=== PATIENT | male | born 1945 | race Caucasian/White ===

== ENCOUNTER 2018-01-05 16:30 | Emergency (ER) | payer OTHER, MEDICARE ==
--- NOTE | 2018-01-05 17:05 | RADIOLOGY REPORT (SQ) ---
EXAM DESCRIPTION: ANKLE LEFT AP/LATERAL COMPLETED DATE/TIME: 01/05/2018 4:56 pm REASON FOR STUDY: bed mp +deformity COMPARISON: None. NUMBER OF VIEWS: Two views. TECHNIQUE: AP and lateral radiographic images acquired of the left ankle. LIMITATIONS: Nonstandard radiographic positioning FINDINGS: MINERALIZATION: Normal. BONES: Acute trimalleolar fracture is present with lateral subluxation of the talus, medial malleolus and distal fibular fragment with respect to the distal tibial plafond. JOINTS: Lateral subluxation of the talus with respect to the tibia SOFT TISSUES: Diffuse soft tissue swelling. No radiopaque foreign body OTHER: No other significant finding. IMPRESSION: Acute trimalleolar fracture with significant lateral subluxation of the talus and distal tibia/fibular fractures fragments with respect to the tibial plafond. TECHNICAL DOCUMENTATION: JOB ID: [id number] [employer]- All Rights Reserved Reading location - IP/workstation name: [email or web address]
--- NOTE | 2018-01-05 18:38 | ER Document Report ---
ED Extremity Problem, Lower - General Chief Complaint: Foot Injury Stated Complaint: FOOT PAIN Time Seen by Provider: 01/05/18 18:31 Notes: Walking up steps and slipped and twisted his left ankle causing it to dislocate and remain in a deformed position. He denies any other injuries. Has a history of diabetic neuropathy and has no feeling from lower leg down and does not feel any pain in the obviously deformed and dislocated left ankle. Denies injuries to his head, neck, chest, or abdomen. Has not been sick recently. Not short of breath. TRAVEL OUTSIDE OF THE [place] IN LAST 30 DAYS: No - Related Data Allergies/Adverse Reactions: paroxetine HCl [From Paxil] Allergy (Unknown, Verified 11/27/17 09:24) Hives mushroom Allergy (Verified 11/27/17 09:24) naproxen [From Naprosyn] Allergy (Verified 11/27/17 09:24) Hives Past Medical History - Social History Smoking Status: Never Smoker Chew tobacco use (# tins/day): No Frequency of alcohol use: None Family History: Reviewed & Not Pertinent Patient has suicidal ideation: No Patient has homicidal ideation: No - Past Medical History Cardiac Medical History: Reports: Hx Congestive Heart Failure, Hx Coronary Artery Disease, 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 4 , Hx Hypercholesterolemia, Hx Hypertension - ON MEDS Pulmonary Medical History: Reports: Hx Bronchitis - hx of , Hx Pneumonia - 1994 Denies: Hx Asthma, Hx COPD Neurological Medical History: Reports: Hx Seizures - ABSENCE FOR 15 YRS- LAST SZ 15YRS AGO Endocrine Medical History: Reports: Hx Diabetes Mellitus Type 1, Hx Diabetes Mellitus Type 2 GI Medical History: Reports: Hx Gastroesophageal Reflux Disease, Hx Hiatal Hernia Musculoskeltal Medical History: Reports Hx Arthritis Past Surgical History: Reports: Hx Cardiac Surgery - quadruple bypass, Hx Cholecystectomy, Hx Coronary Artery Bypass Graft - x 4, Hx Orthopedic Surgery - carpal tunnel, Hx Vascular Surgery - Immunizations Hx Diphtheria, Pertussis, Tetanus Vaccination: Yes Hx Pneumococcal Vaccination: 08/10/07 Review of Systems - Review of Systems Notes: REVIEW OF SYSTEMS: CONSTITUTIONAL : Denies fever. EENT: Denies eye, ear, nose or mouth or throat pain or other symptoms. CARDIOVASCULAR: Denies chest pain. RESPIRATORY: Denies cough, chest congestion, or shortness of breath. GASTROINTESTINAL: Denies abdominal pain or nausea, vomiting, or diarrhea. GENITOURINARY: Denies difficulty or painful urinating, urinary frequency, blood in urine. MUSCULOSKELETAL: Denies back or neck pain. Deformity of the left ankle SKIN: Denies rash or skin lesions. NEUROLOGICAL: Denies LOC or altered mental status. Denies headache. Denies sensory loss or motor deficits. ALL OTHER SYSTEMS REVIEWED AND NEGATIVE. Physical Exam - Vital signs Vitals: Temp Pulse Resp BP Pulse Ox 98.9 F 71 20 145/63 H 97 01/05/18 17:20 01/05/18 17:20 01/05/18 17:20 01/05/18 17:20 01/05/18 17:20 Interpretation: Normal - Notes Notes: PHYSICAL EXAMINATION: GENERAL: Well-appearing, in no acute distress. Obvious gross deformity of the patient's left ankle HEAD: Atraumatic, normocephalic. NECK: Normal range of motion, supple. LUNGS: Breath sounds clear and equal bilaterally. HEART: Regular rate and rhythm without murmurs. ABDOMEN: Soft, nontender. No guarding or rebound. No masses. BACK: No tenderness throughout entire back. EXTREMITIES: Left lower leg and ankle are deformed with dislocation appearance. Left ankle with only minimal discomfort to palpate or move because of the patient's neuropathy. Good dorsalis pedis pulse of that foot and good capillary refill of the toes of that foot. Otherwise, all other joints are normal. NEUROLOGICAL: Normal speech, normal gait. Normal sensory, motor, and reflex exams. Awake, alert, and oriented x3. Cranial nerves normal. PSYCH: Normal mood, normal affect. SKIN: Warm, dry, no rashes. Course - Re-evaluation Re-evalutation: 01/05/18 18:32 Discussed the patient with Dr. Chu, who asked that the patient's dislocation fracture be reduced and splinted and referred to the office tomorrow and they will set up surgery later in the week. Patient's ankle was reduced. Good post reduction circulation in the foot and toes. No anesthesia or analgesia or sedation was utilized because the patient has no feeling in the ankle and distal left lower leg due to his neuropathy. - Vital Signs Vital signs: Temp Pulse Resp BP Pulse Ox 98.9 F 71 20 145/63 H 97 01/05/18 17:20 01/05/18 17:20 01/05/18 17:20 01/05/18 17:20 01/05/18 17:20 - Diagnostic Test Radiology results interpreted by me: 01/05/18 19:37 X-ray reveals a trimalleolar fracture of the left ankle with dislocation. Procedures - Immobilization Left Ankle Pre-Proc Neuro Vasc Exam: Abnormal - Circulation good, sensation absent due to neuropathy. Immobilizer type: Ankle stirrup, Posterior ankle Performed by: Provider assisted, PCT Post-Proc Neuro Vasc Exam: Unchanged from pre-exam Alignment checked and good: Yes - Joint Reduction/Fracture Care Left Ankle Consent obtained: Yes Conscious sedation: No - Patient has neuropathy and has no feeling in his lower extremities Pre-procedure NV exam: Yes - Neuropathy with no feeling in both feet. Fracture: Closed Manipulation comment: Firm traction applied with countertraction being offered by. Post-procedure NV exam: Yes - Same as pre-procedure. Post-reduction x-ray: Joint reduced Reduction attempts: 1 Complications: No Notes: 01/05/18 19:39 Traction applied and accentuation of the deformity was performed. There was a gradual slipping of the dislocated parts back into approximately there original positions. Procedure took less than 5 minutes. No complications. Good dorsalis pedis pulse after the procedure and good capillary refill in the toes of the left foot. Splint applied jointly by PCT and by me. Is a posterior splint with a stirrup as well. Discharge - Discharge Clinical Impression: Trimalleolar fracture of left ankle, Dislocation of left ankle joint Condition: Stable Disposition: HOME, SELF-CARE Additional Instructions: Fractured Ankle (Trimalleolar) You have a fracture of three bones of the lower leg at the ankle. If there is dispacement of the bones from their proper alignment, manipulation of the ankle and foot may be necessary to re-align the bones properly. This fracture wll require a cast for healing and some of the more serious fractures of this type will require surgery. If surgery is not required, the bones requires only protection and sufficient time for healing. The initial treatment is immobilization, elevation, and ice packs. Depending on the type of fracture, immobilization may consist of a splint or cast. The length of time required for healing depends on the type of fracture. You will be referred to an orthopedic surgeon who will re-assess you periodically to make certain that the bone heals without complications. It's important that you follow the instructions given you. Dislocation You have suffered a dislocation of your joint. It has been reduced (put back in place). It will take time for the tissues around the joint to heal. The joint will be immobilized at first. If possible, elevate the injured area and apply ice packs. After healing is underway, the joint will require egryb-lw-[id number] and strengthening exercises. The follow-up care is important in avoiding residual problems following your dislocation. If you note any numbness, muscle weakness, or severe swelling in the affected area, call the doctor or return for re-evaluation at once. ANKLE STIRRUP SPLINT: You are to use an ankle brace called a stirrup splint. This type of brace allows you to place greater stresses on the ankle without risk of re-injury, and is often used for more severe ankle injuries such as avulsion fractures and ligament ruptures. The splint can be worn over a sock or tape. For proper support, wear the splint with a shoe over it. It's important that the splint fit properly. Adjust the heel tension, if needed. If your splint has air bladders, peel back the bottom of each air bladder, then move the Velcro attachment of the heel strap up or down. Air bladder pressure can be adjusted by pulling up the valve at the top, threading the air tube down into the main bladder, then blowing air into the bladder or squeezing it out. The two sides of the stirrup can be moved forward or back on your ankle by changing the attachment of the main straps. If you are unable to use the ankle comfortably in the splint, return for re -evaluation. SOFT ANKLE SPLINT: You are to wear a cloth ankle splint. This type of splint uses the strength of the fabric to keep the ankle from twisting. The splint can be worn over a sock, if it's more comfortable. If the splint has an adjustable strap, the strap should come up over the OUTER side of the ankle. This strap should be pulled tight enough so you can't turn your ankle in towards you -- it should hold your foot so the sole can't be turned towards at the other foot. You should start out slow. Like a new shoe, the splint may take some "breaking in." You will get blisters if you are too active at first. No ankle brace provides absolute protection. You must avoid activities which put your ankle at risk. Work on strengthening your ankle -- strength is your best protection against re-injury. Call the doctor if you can't do your normal activities in the ankle brace. Splitn Precautions A splint has been placed. This will protect the area while healing begins. Your problem does NOT normally require a cast. It MUST, however, be held still! Keep the splint on ALL THE TIME until instructed to remove it by the doctor. As you begin to use the area, be careful. You shouldn't do anything which causes discomfort -- you may disturb the injury even with the splint in place. After the initial period of rest and elevation, if splint does not prevent pain when you move, come back. You may require placement of a different splint , or a cast. If there is unexpected severe pain, or numbness, discoloration, or swelling beyond the splint, you should return at once. If you feel that the splint has broken or become loose, come back. ICE & ELEVATION: Apply ice packs frequently against the painful area. Many different schedules are recommended, such as "20 minutes on, 20 minutes off" or "one hour ice, two hours rest." If you need to work, you may need to go longer between ice treatments. You should plan to have the area ice packed AT LEAST one- fourth of the time. The ice should be applied over the wrap, tape, or splint, or over a layer of cloth -- not directly against the skin. Some ice bags have a built-in cloth and can be put directly on the skin. Your injured part should be elevated as much as possible over the next 48 hours. Try to keep the injury above the level of the heart. Avoid use of the injured area. Elevation and rest will decrease the swelling. ORAL NARCOTIC MEDICATION: You have been given a prescription for pain control. This medication is a narcotic. It's best taken with food, as nausea can result if taken on an empty stomach. Don't operate machinery or drive within six hours of taking this medication. Do not combine this medicine with alcohol, or with any medication which can cause sedation (such as cold tablets or sleeping pills) unless you get permission from the physician. Narcotics tend to cause constipation. If possible, drink plenty of fluids and eat a diet high in fiber and fruits. FOLLOW-UP CARE: If you have been referred to a physician for follow-up care, call the physician s office for an appointment as you were instructed or within the next two days. If you experience worsening or a significant change in your symptoms, notify the physician immediately or return to the Emergency Department at any time for re-evaluation. Call the orthopedic office that I have provided for you in the discharge instructions. I have spoken with Dr. Chu, who indicated that someone would see you in the office tomorrow and schedule your surgery for the fractured ankle later this week. Prescriptions: Oxycodone HCl/Acetaminophen [Percocet 5-325 mg Tablet] 1 - 2 tab PO Q4H PRN #10 tablet PRN Reason: Wheelchair 1 each [facility] DAILY 60 Days each Referrals: RAJEEV SANCHEZ MD [ACTIVE STAFF] - Follow up tomorrow
[2018-01-05 19:31] VITALS: BP 148/79
--- NOTE | 2018-01-05 19:35 | RADIOLOGY REPORT (SQ) ---
EXAM DESCRIPTION: ANKLE LEFT AP/LATERAL COMPLETED DATE/TIME: 01/05/2018 7:05 pm REASON FOR STUDY: Post reduction x-ray COMPARISON: 01/05/2018 NUMBER OF VIEWS: Three views. TECHNIQUE: AP, lateral, and oblique radiographic images acquired of the left ankle. LIMITATIONS: None. FINDINGS: MINERALIZATION: Normal. BONES: The tibiotalar dislocation has been reduced. There is still medial displacement of the tibia in relation to the talus. JOINTS: No effusions. SOFT TISSUES: No soft tissue swelling. No foreign body. OTHER: Ankle is in splint. IMPRESSION: Improved alignment of the tibiotalar joint as described. TECHNICAL DOCUMENTATION: JOB ID: [id number] [employer]- All Rights Reserved Reading location - IP/workstation name: [email or web address]
== END 2018-01-05 19:31 | disposition home or self-care (01) ==
LOC: ER 16:30
DX: S82.852A Displaced trimalleolar fracture of left lower leg, initial encounter for closed fracture (principal); W10.9XXA Fall (on) (from) unspecified stairs and steps, initial encounter; E11.40 Type 2 diabetes mellitus with diabetic neuropathy, unspecified; Z88.8 Allergy status to other drugs, medicaments and biological substances; Z91.018 Allergy to other foods; I25.10 Atherosclerotic heart disease of native coronary artery without angina pectoris; I10 Essential (primary) hypertension
CPT/HCPCS: 99283

== ENCOUNTER 2018-01-06 06:30 | Inpatient (IN) | payer OTHER, MEDICARE ==
--- NOTE | 2018-01-06 07:25 | ER Document Report ---
ED GI/ - General Chief Complaint: Nausea/Vomiting Stated Complaint: NAUSEA/VOMITING Time Seen by Provider: 01/06/18 07:25 Mode of Arrival: Medic Information source: Patient Notes: 72-year-old male that had a fracture dislocation of left ankle reduced in the emergency room yesterday spent most of the night trying to get in and out of the bathroom with a walker that does not fit through the door. He has had nausea and vomiting. He ended up sliding from the chair to the floor and they had to call EMS because they could not get him up off the floor. He had shortness of breath when they ( and neighbor) were trying to get him up. Denies chest pain, shortness of breath or abdominal pain at this time. He is complaining of left ankle pain. TRAVEL OUTSIDE OF THE [place] IN LAST 30 DAYS: No - Related Data Allergies/Adverse Reactions: paroxetine HCl [From Paxil] Allergy (Unknown, Verified 11/27/17 09:24) Hives mushroom Allergy (Verified 11/27/17 09:24) naproxen [From Naprosyn] Allergy (Verified 11/27/17 09:24) Hives Past Medical History - General Information source: Patient - Social History Smoking Status: Former Smoker Chew tobacco use (# tins/day): No Frequency of alcohol use: None Drug Abuse: None Lives with: Spouse/Significant other - Family History: Reviewed & Not Pertinent Patient has suicidal ideation: No Patient has homicidal ideation: No - Past Medical History Cardiac Medical History: Reports: Hx Congestive Heart Failure, Hx Coronary Artery Disease, 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 4 , Hx Hypercholesterolemia, Hx Hypertension - ON MEDS Pulmonary Medical History: Reports: Hx Bronchitis - hx of , Hx Pneumonia - 1994 Neurological Medical History: Reports: Hx Seizures - ABSENCE FOR 15 YRS- LAST SZ 15YRS AGO Endocrine Medical History: Reports: Hx Diabetes Mellitus Type 1, Hx Diabetes Mellitus Type 2 Renal/ Medical History: Denies: Hx Peritoneal Dialysis GI Medical History: Reports: Hx Gastroesophageal Reflux Disease, Hx Hiatal Hernia Musculoskeltal Medical History: Reports Hx Arthritis Past Surgical History: Reports: Hx Cardiac Surgery - quadruple bypass, Hx Cholecystectomy, Hx Coronary Artery Bypass Graft - x 4, Hx Orthopedic Surgery - carpal tunnel, Hx Vascular Surgery. Denies: Hx Abdominal Surgery, Hx Bowel Surgery, Hx Cardiac Catheterization, Hx Neurologic Surgery, Hx Nose Surgery, Hx Open Heart Surgery, Hx Oral Surgery, Hx Thyroid Surgery, Hx Tonsillectomy - Immunizations Hx Diphtheria, Pertussis, Tetanus Vaccination: Yes Hx Pneumococcal Vaccination: 08/10/07 Review of Systems - Review of Systems Constitutional: No symptoms reported EENT: No symptoms reported Cardiovascular: No symptoms reported Respiratory: No symptoms reported Gastrointestinal: See HPI Genitourinary: No symptoms reported Male Genitourinary: No symptoms reported Musculoskeletal: See HPI Skin: No symptoms reported Hematologic/Lymphatic: No symptoms reported Neurological/Psychological: No symptoms reported Physical Exam - Vital signs Vitals: Temp Pulse Resp BP Pulse Ox 100.2 F 86 18 124/55 L 95 01/06/18 06:39 01/06/18 06:39 01/06/18 06:39 01/06/18 06:39 01/06/18 06:39 Interpretation: Febrile - Low-grade 100.2 - General General appearance: Alert Notes: Looks dry - HEENT Head: Normocephalic, Atraumatic Eyes: Normal Conjunctiva: Normal Pupils: PERRL Neck: Supple. No: Lymphadenopathy - Respiratory Respiratory status: No respiratory distress Chest status: Nontender Breath sounds: Normal Chest palpation: Normal - Cardiovascular Rhythm: Regular Heart sounds: Normal auscultation Murmur: No - Abdominal Inspection: Normal Distension: No distension Bowel sounds: Normal Tenderness: Nontender. No: Tender Organomegaly: No organomegaly - Back Back: Normal, Nontender - Extremities General upper extremity: Normal inspection, Nontender, Normal color, Normal ROM , Normal temperature General lower extremity: Normal inspection, Nontender, Normal color, Normal ROM , Normal temperature, Normal weight bearing. No: Ciro's sign Ankle: Other - splint on left ankle/foot - Neurological Neuro grossly intact: Yes Cognition: Normal Orientation: AAOx4 [place] Coma Scale Eye Opening: Spontaneous [place] Coma Scale Verbal: Oriented [place] Coma Scale Motor: Obeys Commands [place] Coma Scale Total: 15 Speech: Normal Motor strength normal: LUE, RUE, LLE, RLE Sensory: Normal - Psychological Associated symptoms: Normal affect, Normal mood - Skin Skin Temperature: Warm Skin Moisture: Dry Skin Color: Normal Notes: see note above to decribed the bullae Course - Re-evaluation Re-evalutation: 01/06/18 08:40 splint for rewrap of luis wraps, blood on the soft gauze, when removed 3 serosanquinous bullae and 1 ruptured bullae medial left ankle with blood on base. Bacitracin and telfa. 01/06/18 08:[address] wright as said they were trying to make appt with him. 01/06/18 08:44 01/06/18 09:31 Dr. Grossman told me to call nurse practitioner Lori Quezada for the medical admission and I put in the consultation with Dr. wright and spoke with him and he will see the patient in consultation. Since he has the bullae he will not be able to have surgery until the skin heals because that increases the risk of infection. I did Ancef 1 g IV. I spoke with nurse practitioner Damien who will see the patient and admit him to telemetry. 01/06/18 10:15 Patient looks better after 500 of normal saline and he wants to eat breakfast. He has not his insulin today - Vital Signs Vital signs: Temp Pulse Resp BP Pulse Ox 100.2 F 86 22 H 124/55 L 94 01/06/18 06:39 01/06/18 06:39 01/06/18 08:03 01/06/18 06:39 01/06/18 08:03 - Laboratory Result Diagrams: 01/06/18 07:39 01/06/18 07:39 Laboratory results interpreted by me: 01/06/18 01/06/18 01/06/18 07:39 07:39 09:10 WBC 14.5 H RBC 3.94 L Hgb 12.7 L Hct 37.0 L Plt Count 140 L Absolute Neutrophils 10.2 H Absolute Monocytes 1.7 H Glucose 250 H ALT 20 L Creatine Kinase 184 H Urine Glucose (UA) >=500 H Urine Ketones 20 H Urine Ascorbic Acid 20 H Discharge - Discharge Clinical Impression: fall, left ankle fracture, bullae, Immobility, Diabetes, Hyperglycemia, Nausea Vomiting Qualifiers: Vomiting type: unspecified Vomiting Intractability: non-intractable Nausea presence: with nausea Qualified Code(s): R11.2 - Nausea with vomiting, unspecified Condition: Good Disposition: ADMITTED INPATIENT Admitting Provider: Hospitalist Unit Admitted: Telemetry
[2018-01-06] MEDS ORDERED: NORMAL SALINE 1000 ML 500 ML IV ONE (07:40)
[2018-01-06 07:57] LABS: ABSOLUTE EOSINOPHILS # (AUTO) 0.1 10^3/uL (0.0-0.6); ABSOLUTE LYMPHOCYTES (AUTO) 2.5 10^3/uL (0.5-4.7); ABSOLUTE MONOCYTES (AUTO) 1.7 10^3/uL (0.1-1.4); ABSOLUTE NEUT (AUTO) 10.2 10^3/uL (1.7-8.2); BASOPHILS % (AUTO) 0.2 % (0-2); EOSINOPHILS % (AUTO) 0.6 % (0-6); HEMOGLOBIN 12.7 g/dL (13.5-17.0); MEAN CORPUSCULAR HEMOGLOBIN 32.3 pg (27.0-33.4); MEAN CORPUSCULAR HGB CONC 34.3 g/dL (32.0-36.0); MEAN CORPUSCULAR VOLUME 94 fl (80-97); MONOCYTES % (AUTO) 12.1 % (3-13); PLATELET COUNT 140 10^3/uL (150-450); RED BLOOD COUNT 3.94 10^6/uL (4.35-5.55); RED CELL DISTRIBUTION WIDTH 13.4 % (11.5-14.0); SEGMENTED NEUTROPHILS % (AUTO) 70.1 % (42-78); TOTAL CELLS COUNTED % (AUTO) 100 %; WHITE BLOOD COUNT 14.5 10^3/uL (4.0-10.5)
[2018-01-06 08:21] LABS: ALANINE AMINOTRANSFERASE 20 U/L (21-72); ALBUMIN 3.6 g/dL (3.5-5.0); ALKALINE PHOSPHATASE 59 U/L (38-126); ANION GAP 14 (5-19); ASPARTATE AMINO TRANSFERASE 29 U/L (17-59); BILIRUBIN,DIRECT 0.3 mg/dL (0.0-0.4); BILIRUBIN,TOTAL 0.4 mg/dL (0.2-1.3); BLOOD UREA NITROGEN 13 mg/dL (7-20); CALCIUM 8.5 mg/dL (8.4-10.2); CARBON DIOXIDE 26 mmol/L (22-30); CHLORIDE 103 mmol/L (98-107); CREATINE KINASE 184 U/L (55-170); GLUCOSE 250 mg/dL (75-110); LIPASE 73.5 U/L (23-300); POTASSIUM 4.5 mmol/L (3.6-5.0); SODIUM 142.8 mmol/L (137-145); TOTAL PROTEIN 6.5 g/dL (6.3-8.2)
[2018-01-06 08:32] LABS: CREATINE KINASE MB 1.32 ng/mL (<4.55); TROPONIN I 0.015 ng/mL
--- NOTE | 2018-01-06 08:32 | RADIOLOGY REPORT (SQ) ---
EXAM DESCRIPTION: CHEST SINGLE VIEW COMPLETED DATE/TIME: 01/06/2018 8:24 am REASON FOR STUDY: shortness of breath COMPARISON: Chest films 11/27/2017, 11/11/2014 EXAM PARAMETERS: NUMBER OF VIEWS: One view. TECHNIQUE: Single frontal radiographic view of the chest acquired. RADIATION DOSE: NA LIMITATIONS: [employer] portable chest film with EKG leads over the chest FINDINGS: LUNGS AND PLEURA: No opacities, masses or pneumothorax. No pleural effusion. MEDIASTINUM AND HILAR STRUCTURES: No masses. Contour normal. HEART AND VASCULAR STRUCTURES: Heart normal in size. Normal vasculature. BONES: No acute findings. HARDWARE: None in the chest. OTHER: No other significant finding. IMPRESSION: NO ACUTE RADIOGRAPHIC FINDING IN THE CHEST. TECHNICAL DOCUMENTATION: JOB ID: [id number]- All Rights Reserved Reading location - IP/workstation name: [email or web address]
[2018-01-06] MEDS: CEFAZOLIN 1 GM/D5W RTU 1 GM/50 ML RTUPB IV SCH ×3 (09:05→23:42)
[2018-01-06] MEDS ORDERED: HYDROMORPHONE HCL INJ/PF 2 MG/ML AMPULE IV ONE (09:40)
[2018-01-06] MEDS ORDERED: ONDANSETRON HCL INJ/PF 4 MG/2 ML SDV IV ONE (09:41)
[2018-01-06 09:42] LABS: APPEARANCE,URINE SLIGHTLY-CLOUDY; BILIRUBIN,URINE NEGATIVE (NEGATIVE); COLOR,URINE YELLOW; GLUCOSE, URINE >=500 mg/dL (NEGATIVE); KETONES,URINE 20 mg/dL (NEGATIVE); LEUKOCYTE ESTERASE,URINE NEGATIVE (NEGATIVE); NITRITE,URINE NEGATIVE (NEGATIVE); PROTEIN,URINE NEGATIVE (NEGATIVE); URINE SPECIFIC GRAVITY 1.022; UROBILINOGEN,URINE NEGATIVE mg/dL (<2.0)
--- NOTE | 2018-01-06 10:18 | EKG REPORT ---
SEVERITY:- ABNORMAL ECG - SINUS RHYTHM LEFT BUNDLE BRANCH BLOCK : Confirmed by: Cassandra Glass 06-Jan-2018 10:18:02
[2018-01-06] MEDS ORDERED: ONDANSETRON 4 MG TAB.RAPDIS PO PRN ×2 (10:55→15:30)
[2018-01-06] MEDS ORDERED: NITROGLYCERIN 2% OINTMENT 1 GM PACKET TP ONE (11:02)
[2018-01-06] MEDS ORDERED: NITROGLYCERIN 0.4 MG/TAB 25 TAB/BOTTLE SL PRN (11:05)
[2018-01-06] MEDS ORDERED: ENOXAPARIN SODIUM INJ 30 MG/0.3 ML DISP.SYRIN SUBCUT ONE ×2 (12:00→16:00)
[2018-01-06 12:19] LABS: CREATINE KINASE MB 1.61 ng/mL (<4.55); TROPONIN I 0.023 ng/mL
[2018-01-06] MEDS ORDERED: DEXTROSE 50%-WATER 25 GM/50 ML DISP.SYRIN IV PRN ×2 (13:52)
[2018-01-06] MEDS ORDERED: DEXTROSE 40% GEL 15 GM TUBE PO PRN ×2 (13:52)
[2018-01-06] MEDS ORDERED: GLUCAGON,HUMAN RECOMB 1 MG INJ IM PRN (13:52)
[2018-01-06] MEDS ORDERED: (PENDING PHARMACY ID) (Meclizine Hcl [Meclizine Hcl] 25 MG) PO PRN (13:53)
[2018-01-06] MEDS ORDERED: (PENDING PHARMACY ID) (Gabapentin [Gabapentin] 300 MG) PO SCH (14:00)
[2018-01-06] MEDS ORDERED: METOPROLOL TARTRATE 50 MG TABLET PO SCH (14:00)
[2018-01-06] MEDS ORDERED: MULTIVITAMIN TABLET PO SCH (14:00)
[2018-01-06] MEDS ORDERED: MECLIZINE HCL 25 MG TABLET PO PRN (14:26)
[2018-01-06] MEDS ORDERED: GABAPENTIN 300 MG CAPSULE PO ONE (15:00)
[2018-01-06] MEDS: TAMSULOSIN HCL 0.4 MG CAP.SR.24H PO SCH (15:33)
--- NOTE | 2018-01-06 16:30 | RADIOLOGY REPORT (SQ) ---
EXAM DESCRIPTION: CT HEAD WITHOUT COMPLETED DATE/TIME: 01/06/2018 4:12 pm REASON FOR STUDY: fall. dizziness. ?LOC? COMPARISON: CT brain 03/14/2014, 03/15/2014, 03/16/2015 TECHNIQUE: Axial images acquired through the brain without intravenous contrast. Images reviewed wi th bone, brain and subdural windows. Additional sagittal and coronal reconstructions were generated. Images stored on PACS. All CT scanners at this facility use dose modulation, iterative reconstruction, and/or weight based d osing when appropriate to reduce radiation dose to as low as reasonably achievable (ALARA). [facility]: Dose Right [facility]: CareDose [facility]: Dose Right [facility]: Teradose 4D [facility]: [employer] RADIATION DOSE: CT Rad equipment meets quality standard of care and radiation dose reduction techniq ues were employed. CTDIvol: 48.6 mGy. DLP: 954 mGy-cm. mGy. LIMITATIONS: None. FINDINGS: VENTRICLES: Normal size and contour. CEREBRUM and CEREBELLUM: No CT evidence of acute large territory ischemic change, acute intracranial hemorrhage, mass effect, or midline shift. Minimal bifrontal and biparietal age-appropriate small ve ssel ischemic change in the deep hemispheric white matter. On image 13, a punctate hyperdensity is p resent in the midline dina which is unchanged from studies dating back to 2014, likely reflecting an old infarct with calcification. EXTRAAXIAL SPACES: No fluid collections. No masses. ORBITS AND GLOBE: No intra- or extraconal masses. Post bilateral cataract surgery. CALVARIUM: No fracture. PARANASAL SINUSES: No fluid or mucosal thickening. SOFT TISSUES: No mass or hematoma. OTHER: No other significant finding. IMPRESSION: No acute findings. Age-appropriate minimal small vessel disease Stable punctate pontine calcification unchanged from 2014 EVIDENCE OF ACUTE STROKE: NO. COMMENT: Quality ID # [id number]: Final reports with documentation of one or more dose reduction techniques (e.g., Automated exposure control, adjustment of the mA and/or kV according to patient size, use of iterative reconstruction technique) TECHNICAL DOCUMENTATION: JOB ID: [id number] [employer]- All Rights Reserved Reading location - IP/workstation name: [email or web address]
--- NOTE | 2018-01-06 17:05 | PDOC H&P ---
History of Present Illness Admission Date/PCP: 01/06/18 09:41 Patient complains of: Fall. Possible syncope. History of Present Illness: PARTICE SHORT JR is a 72 year old male who presented to the emergency department after falling at 0530 morning in his bathroom. Fall was witnessed by . No head trauma. Patient states he is unclear whether or not he lost consciousness, patient is amnesic to the event. states the patient was attempting to transfer from seated rolling walker to toilet when he lost his balance and fell to the ground. At that time the patient became nauseated and vomited x 3. and neighbor attempted to get patient off the ground, but were unsuccessful. EMS was called after man unsuccessful attempts to get patient off of the floor. Of note, the patient was discharged from the emergency department 24 hours ago following a trip and fall that resulted in an acute trimalleolar fracture with lateral subluxation of the talus, medial malleolus and distal fibular fragment. In the ED, traction was applied and replacement of dislocated ankle was preformed by Dr. Ryder. Splint was applied and patient was instructed to follow up with Dr. Chu in his office the next day (today). While in the emergency department today, the ER physician and PCT resplinted the LLE. When the initial splint was removed, 3 serosanguineous bullae and one ruptured bullae were discovered over the medial left ankle. Dr. Chu was consulted, he states there is no surgery planned for the immediate time being while the patient has a bullae because of increased risk of surgical site infection. The patient presented with relatively normal vital signs. BP 124/55 HR 86 RR 18 T 100.2 SPO2 96 on RA. Upon assessment, the patient is resting comfortably in bed. He complains of very mild pain to his left ankle. Describes it as constant and throbbing. Patient states that the pain radiates up his leg, however he emphasizes his lack of sensation in his lower extremities due to severe neuropathy. Lab work reveals leukocytosis (WBC 14), otherwise benign. EKG demonstrates LBBB, no indication of acute infarction or ischemia. CXR benign. Patient treated with 1 g Ancef x 1 for ruptured bullae. Additionally, the patient endorses constant chest pain that began this morning following his fall. He describes the pain as a 'soreness' that is nonradiating. Denies shortness of breath, palpitations, back pain. Initial troponin negative. 1/" Nitropaste applied to anterior chest wall. Cardiology consulted. Plan to admit to hospitalist service for chest pain workup and orthopedic follow-up. Past Medical History Cardiac Medical History: Reports: Congestive Heart Failure, Coronary Artery Disease, Myocardial Infarction - 1994 - cabg x 4 , Hyperlipidema, Hypertension - ON MEDS Pulmonary Medical History: Reports: Bronchitis - hx of , Pneumonia - 1994 Denies: Asthma, Chronic Obstructive Pulmonary Disease (COPD) EENT Medical History: Reports: Cataracts Neurological Medical History: Reports: Seizures - ABSENCE FOR 15 YRS- LAST SZ 15YRS AGO Endocrine Medical History: Reports: Diabetes Mellitus Type 2 Renal/ Medical History: Reports: Other - BPH GI Medical History: Reports: Gastroesophageal Reflux Disease, Hiatal Hernia Musculoskeltal Medical History: Reports: Arthritis Psychiatric Medical History: Reports: Depression, Post Traumatic Stress Disorder Hematology: Denies: Anemia Past Surgical History Past Surgical History: Reports: Cholecystectomy, Coronary Artery Bypass Graft - x 4, Orthopedic Surgery - carpal tunnel, Vascular Surgery, Other - Shrapnel removal from abdomen Denies: Cardiac Catheterization, Tonsillectomy Social History Lives with: Spouse/Significant other - Smoking Status: Never Smoker Frequency of Alcohol Use: None Hx Recreational Drug Use: No Hx Prescription Drug Abuse: No - Advance Directive Resuscitation Status: Do Not Resuscitate - Patient states he does not want to be resuscitated if his heart should stop or if he stops breathing Family History Family History: CAD, DM, Malignancy - Father-renal carcinoma, Other - HTN Parental Family History Reviewed: Yes Children Family History Reviewed: Yes Sibling(s) Family History Reviewed.: Yes Medication/Allergy Home Medications: Aspirin [Aspirin 325 mg Tablet] 325 mg PO QHS 06/04/13 Divalproex Sodium [Depakote ER] 1,000 mg PO QHS 06/04/13 Memantine HCl [Namenda 10 Mg Tablet] 10 mg PO BID 06/04/13 Multivitamin [Multi Vitamin Daily] 1 each PO QAM 06/04/13 NPH, Human Insulin Isophane [Novolin N (NPH) Insulin 100 unit/mL] 70 unit SUBCUT QHS 06/04/13 NPH, Human Insulin Isophane [Novolin N (NPH) Insulin 100 unit/mL] 80 unit SUBCUT QAM 06/04/13 Omeprazole 20 mg PO BID 06/04/13 Phenytoin Sodium Extended [Dilantin] 200 mg PO QHS 06/04/13 Trazodone HCl 100 mg PO QHS 06/04/13 Simvastatin [Zocor 80 mg Tablet] 80 mg PO QHS 06/08/15 Fluoxetine HCl [Prozac 20 mg Capsule] 40 mg PO DAILY 01/06/18 Gabapentin 300 mg PO TID 01/06/18 Loratadine [Claritin] 10 mg PO DAILY 01/06/18 Meclizine HCl 25 mg PO TIDP PRN 01/06/18 Metoprolol Tartrate [Lopressor 50 mg Tablet] 25 mg PO Q12H 01/06/18 Tamsulosin HCl 0.4 mg PO DAILY 01/06/18 Tramadol HCl [Ultram 50 mg Tablet] 50 mg PO TIDP PRN 01/06/18 Allergies/Adverse Reactions: paroxetine HCl [From Paxil] Allergy (Unknown, Verified 01/06/18 11:53) Hives mushroom Allergy (Verified 01/06/18 11:53) naproxen [From Naprosyn] Allergy (Verified 01/06/18 11:53) Hives cabbage Adverse Reaction (Mild, Verified 01/06/18 11:53) Review of Systems Eyes: PRESENT: visual disturbances - Patient wears corrective eyewear. Endorses recent history of cataract repair and right eye. Cardiovascular: PRESENT: chest pain - Soreness. Nonradiating.. ABSENT: dyspnea on exertion, edema, palpitations Respiratory: ABSENT: dyspnea Gastrointestinal: PRESENT: nausea, vomiting - 3 episodes of vomiting this morning following his fall Musculoskeletal: PRESENT: other - Weakness to both knees, requiring use of cane in order to ambulate Integumentary: PRESENT: other - Multiple bullae 2 left medial ankle Neurological: PRESENT: abnormal gait - Requiring assistive device (cane), dizziness, syncope - Patient endorses possible loss of consciousness this morning Psychiatric: PRESENT: anxiety, depression, other - PTSD. ABSENT: homidical ideation, suicidal ideation Physical Exam Vital Signs: Temp Pulse Resp BP Pulse Ox 99.4 F 87 18 119/60 92 01/06/18 13:12 01/06/18 13:24 01/06/18 13:12 01/06/18 13:12 01/06/18 13:12 Intake & Output 01/05/18 01/06/18 01/07/18 06:59 06:59 06:59 Weight 105.6 kg General appearance: PRESENT: no acute distress, disheveled - long toe nails. very dry flaky/unwashed skin. Eye exam: PRESENT: conjunctiva pink, PERRLA Mouth exam: PRESENT: moist Neck exam: PRESENT: full ROM Respiratory exam: PRESENT: clear to auscultation ramon, symmetrical, unlabored Cardiovascular exam: PRESENT: +S1, +S2 Pulses: PRESENT: normal radial pulses, normal dorsalis pedis pul Vascular exam: PRESENT: pallor GI/Abdominal exam: PRESENT: normal bowel sounds, soft. ABSENT: tenderness Rectal exam: PRESENT: deferred Extremities exam: PRESENT: full ROM Musculoskeletal exam: PRESENT: full ROM. ABSENT: ambulatory - NWB LLE Neurological exam: PRESENT: alert, awake, oriented to person, oriented to place , oriented to time, oriented to situation. ABSENT: normal gait Psychiatric exam: PRESENT: appropriate affect Skin exam: PRESENT: dry, pallor, warm Results Laboratory Results: 01/06/18 01/06/18 11:26 11:26 Creatine Kinase 265 H CK-MB (CK-2) 1.61 Troponin I 0.023 Impressions: Chest X-Ray 01/06/18 07:43 IMPRESSION: NO ACUTE RADIOGRAPHIC FINDING IN THE CHEST. Status: Imported from PACS Assessment & Plan - Diagnosis (1) Trimalleolar fracture of left ankle Qualifiers: Encounter type: subsequent encounter Fracture type: closed Fracture healing: with malunion Qualified Code(s): S82.852P - Displaced trimalleolar fracture of left lower leg, subsequent encounter for closed fracture with malunion Is this a current diagnosis for this admission?: Yes Plan: Patient initially presented to the emergency department on 01/05 status post trip and fall. Diagnosed with acute trimalleolar fracture with lateral subluxation of the talus, medial malleolus and distal fibular fragment. Dr. Chu, of orthopedics was consulted. In the ED, traction was applied and replacement of dislocated ankle was preformed by Dr. Ryder. Splint was applied and patient was instructed to follow up with Dr. Chu in his office the next day. Fall again at home early this morning. Returned to ED because patient could not ambulate. Dr. Chu consulted by ED physician Splint removed, 3 serosanguineous bullae and one ruptured bullae noted to the medial left ankle. No plans for orthopedic surgery until bullae are healed. LLE resplinted in the ED. Good CAP refill, poor tactile sensation secondary to chronic peripheral neuropathy. Keep LLE elevated when at rest. NWB LLE. Patient denies pain in LLE, tylenol as needed. (2) Fall Qualifiers: Encounter type: subsequent encounter Qualified Code(s): W19.XXXD - Unspecified fall, subsequent encounter Is this a current diagnosis for this admission?: Yes Plan: Patient's reports that the patient got up to use the bathroom at 0530 this morning. Ambulating using seated rolling walker. When attempting to move from seated walker to toilet, the patient reports he became dizzy and fell to the ground. Denies head trauma. Patient endorses possible LOC, he is amnesic to the event. Head CT pending. Fall precautions Patient will require acute rehab following hospitalization, it is clear that he is unable to navigate his home environment with his injury. Discharge planning aware. (3) Chest pain Qualifiers: Chest pain type: other chest pain Qualified Code(s): R07.89 - Other chest pain; R07.8 - Other chest pain Is this a current diagnosis for this admission?: Yes Plan: Patient complains of chest pain that started this morning. Patient reports long-standing history of intermittent chest pain since his four- vessel CABG. Patient was supposed to have full cardiac workup last month prior to knee surgery, but [facility] Describes chest pain as "soreness." Nonradiating. Denies shortness of breath, dyspnea, back pain, diaphoresis EKG shows LBBB (old) no evidence of acute infarction or ischemia. Initial troponin 0.015, continue to trend every 6 hours 3 Half-inch Nitropaste applied to anterior chest wall Sublingual nitro available as needed for chest pain CXR benign Cardiology consulted. Dr. Montoya recommends stress test and echocardiogram tomorrow. (4) Bullous eruption Is this a current diagnosis for this admission?: Yes Plan: 3 serosanguineous bullae and one ruptured bullae noted to the medial left ankle. No plans for orthopedic surgery until bullae are healed. Wound culture pending Initiate Mupirocin ointment daily for MSSA coverage and TMP-SMX DS po BID for MRSA coverage (5) Diabetes Qualifiers: Diabetes mellitus type: type 2 Diabetes mellitus longterm insulin use: with longterm use Diabetes mellitus complication status: without complication Qualified Code(s): E11.9 - Type 2 diabetes mellitus without complications; Z79.4 - electronic integrated systems mechanic (current) use of insulin; Z79.4 - electronic integrated systems mechanic ( current) use of insulin; Z79.4 - retirement (current) use of insulin; Z79.4 - electronic integrated systems mechanic (current) use of insulin Is this a current diagnosis for this admission?: Yes Plan: Patient endorses history of diabetes. Accu-Cheks before meals at bedtime Humalog sliding scale for coverage (6) HTN (hypertension) Qualifiers: Hypertension type: essential hypertension Qualified Code(s): I10 - Essential (primary) hypertension Is this a current diagnosis for this admission?: Yes Plan: Patient endorses history of hypertension. The patient has remained relatively NORMOtensive since admission Restart home medications. (7) PTSD (post-traumatic stress disorder) Is this a current diagnosis for this admission?: Yes Plan: The patient endorses a history of PTSD. We will restart home medications (8) HLD (hyperlipidemia) Is this a current diagnosis for this admission?: Yes Plan: Patient endorses history of hyperlipidemia. Restart home dose statin therapy (9) BPH (benign prostatic hyperplasia) Qualifiers: Lower urinary tract symptom presence: symptoms absent Qualified Code(s): N40.0 - Benign prostatic hyperplasia without lower urinary tract symptoms Is this a current diagnosis for this admission?: Yes Plan: Patient endorses recent diagnosis of BPH. Restart home dose tamsulosin - Time Critical Time spent with patient: 15-24 minutes Medications reviewed and adjusted accordingly: Yes Anticipated discharge: Home - Inpatient Certification Based on my medical assessment, after consideration of the patient's comorbidities, presenting symptoms, or acuity I expect that the services needed warrant INPATIENT care.: Yes I certify that my determination is in accordance with my understanding of Medicare's requirements for reasonable and necessary INPATIENT services [42 CFR 412.3e].: Yes Medical Necessity: Risk of Complication if Not Cared For in Hospital - Plan Summary Plan Summary: Admit for orthopedic surgery follow up and chest pain workup
[2018-01-06] MEDS: MEMANTINE HCL 10 MG TABLET PO SCH (17:45)
[2018-01-06] MEDS: SULFAMETHOXAZOLE/TRIMETHOPRIM 800-160 MG TABLET PO SCH (17:45)
[2018-01-06] MEDS: FLUOXETINE HCL 20 MG CAPSULE PO SCH (17:45)
[2018-01-06] MEDS: MUPIROCIN 2% OINTMENT 22 GM TP SCH (17:46)
[2018-01-06] MEDS: LANSOPRAZOLE 15 MG TAB.RAP.DR PO SCH (17:46)
[2018-01-06 18:01] LABS: CREATINE KINASE MB 2.93 ng/mL (<4.55); TROPONIN I 0.025 ng/mL
[2018-01-06] MEDS: ACETAMINOPHEN 325 MG TABLET PO PRN (18:09)
[2018-01-06] MEDS ORDERED: (PENDING PHARMACY ID) (Simvastatin [Zocor 80 Mg Tablet] 80 MG) PO SCH (22:00)
[2018-01-06] MEDS ORDERED: SIMVASTATIN 40 MG TABLET PO SCH (22:00)
[2018-01-06] MEDS: INSULIN LISPRO 100 UNIT/ML 3 ML VIAL SUBCUT PRN (22:38)
[2018-01-06] MEDS: SIMVASTATIN 40 MG TABLET PO SCH (22:39)
[2018-01-06] MEDS: GABAPENTIN 300 MG CAPSULE PO SCH (22:39)
[2018-01-06] MEDS: ASPIRIN 325 MG TABLET PO SCH (22:39)
[2018-01-06] MEDS: PHENYTOIN SODIUM EXTENDED 100 MG CAPSULE PO SCH (22:40)
[2018-01-06] MEDS: DIVALPROEX SODIUM 500 MG TAB.SR.24H PO SCH (22:40)
[2018-01-06] MEDS: TRAZODONE HCL 50 MG TABLET PO SCH (22:41)
[2018-01-07 00:14] LABS: CREATINE KINASE MB 2.72 ng/mL (<4.55); TROPONIN I 0.028 ng/mL
--- NOTE | 2018-01-07 00:42 | CONSULTATION REPORT E ---
Consultation Report NAME: PATRICE SHORT : 1945 AGE: 72Y DATE: 01/06/2018 431 A TO: JAYLON RUEDA M.D. FROM: Negrita GILLIAM Requesting Physician REASON FOR CONSULTATION: Patient with chest pain and possible syncope. HISTORY: The patient is a 72-year-old male who came to the Emergency Room due to a fall. The states that it was an accidental trip and fall and he was conscious when he had the fall but after the fall, he was very dazed. No definite syncope as per the patient's . The patient also complains of chest pain which is in the lower retrosternal area and to me, he said it lasted only a few minutes and the area was sore to touch, but to the other physician, he has said that the pain lasted all morning after his fall. Note that the patient is a poor historian, compounded by the fact that he is very forgetful and also has mild dementia, although he knows where he is and seems to be oriented x3. He denies any PND, orthopnea, palpitations. There are no TIA or CVA symptoms. There is no leg edema. The patient does have diabetic neuropathy which is severe. Twenty-four hours prior to this admission, the patient was seen in the ER after a trip and fall that resulted in acute trimalleolar fracture with lateral subluxation of talus, medial malleolus and distal fibular fragment in the left leg. This was treated with traction and replacement of dislocated ankle and was placed in a brace. He was supposed to see *------*. The also states that he is scheduled to have right knee surgery by Dr. Mclaughlin but since he follows up at the [facility], she has not been able to get a stress test or an echocardiogram for preoperative risk assessment of this patient. PAST MEDICAL HISTORY: Positive for history of myocardial infarction in 1994 after which he had a 4-vessel bypass. The details of this are not known. Since then, the patient has not had any chest pain until today. The patient has not had a recent stress test. There is no history of congenital heart disease or rheumatologic fever. There is no history of congestive heart failure. There are no palpitations or definite syncope except for what was mentioned earlier in the history of present illness which again, is really not truly syncopal. There is no leg edema. There is no PND or orthopnea. Cannot state about his dyspnea on exertion since the patient, with severe right knee degenerative joint disease and chronic back pain and spinal stenosis, does not ambulate much. He also has a history of diabetes mellitus with diabetic neuropathy. There is no history of thyroid disease. There is no history of TIA or CVA. The patient does have a history of dementia as per the and also a history of depression. Although no recent congestive heart failure, the patient's states that in the past, he has had congestive heart failure when he had the myocardial infarction. He also has a history of hypertension and hyperlipidemia. There is no history of asthma or COPD. He had had a history of pneumonia in 1994. The patient also has history of seizures. The last was 15 years ago. He also has benign prostatic hypertrophy. He has a hiatal hernia and gastroesophageal reflux. He also has posttraumatic stress disorder. DISPOSITION: The patient is a DNR. His is the surrogate healthcare decision maker. FAMILY HISTORY: Positive for coronary artery disease, diabetes mellitus, malignancy. His father had renal carcinoma and also there is a history of hypertension in the family. SOCIAL HISTORY: The patient has never smoked. There is no history of ETOH abuse. PAST SURGICAL HISTORY: 1. Coronary artery bypass grafting surgery. 2. Cholecystectomy. 3. Carpal tunnel surgery. 4. Vascular surgery. 5. Shrapnel removed from abdomen. ALLERGIES: 1. PAROXETINE. 2. MUSHROOM. 3. NAPROXEN. 4. CABBAGE. MEDICATIONS: 1. Tylenol 650 mg p.o. q. 4 hours p.r.n. 2. Aspirin 325 mg p.o. at bedtime. 3. Hypoglycemic precautions with glucose 40% gel 15 g and 30 g p.o. respectively p.r.n. hypoglycemia. 4. Dextrose 50% at 12.5 g and 25 g IV respectively p.r.n. hypoglycemia. 5. Glucagon 1 mg intramuscularly p.r.n. hypoglycemia. 6. Lovenox 40 mg subcutaneously daily. 7. Depakote 1000 mg p.o. at bedtime. 8. Prozac 40 mg p.o. q. p.m. 9. Neurontin 300 mg p.o. x1 and 300 mg p.o. q. 8 hours. 10. Hydromorphone 0.5 mg IV x1. 11. Accu-Chek AC TID AND HS with sliding scale insulin coverage as per sliding scale. 12. Cefazolin/Ancef 1 g/50 mL IV q. 6 hours. 13. He got a bolus of normal saline at 500 mL. 14. Prevacid 15 mg p.o. q. 12 hours. 15. Antivert 25 mg p.o. t.i.d. p.r.n. 16. Namenda 10 mg p.o. b.i.d. 17. Metoprolol tartrate/Lopressor 25 mg p.o. q. 12 hours. 18. Multivitamin tab with vitamin A 1 tablet p.o. q. a.m. 19. Bactroban 2% ointment topically to the blisters on the left leg. 20. Nitroglycerin 0.5 g topically x1. 21. Nitroglycerin 1 tablet sublingual q. 5 minutes p.r.n. 22. Zofran 4 mg p.o. q. 6 hours p.r.n. 23. Dilantin 200 mg p.o. at bedtime 24. Simvastatin 80 mg p.o. at bedtime. 25. Bactrim 1 tablet p.o. b.i.d. 26. Flomax 0.4 mg p.o. a.c. supper. 27. Desyrel 100 mg p.o. at bedtime. REVIEW OF SYSTEMS: CONSTITUTIONAL: Denies any fevers, chills or rigors. Complains of generalized fatigue and weakness. HEAD: Denies headaches or head injury. EYES: No history of amblyopia or diplopia. No history of amaurosis fugax. EARS: No history of hearing loss. No history of tinnitus. No history of recurrent ear infections. NOSE: No history of hay fever. No history of nosebleeds. No nasal polyps. MOUTH: No altered taste sensation. No ulcers in the mouth. No bleeding from the gums. THROAT: No odynophagia or dysphagia. No recurrent sore throats. SKIN: No history of skin cancer. No history of pruritus. No history of yellowish discoloration of the skin. No history of skin cancer or psoriasis. NECK: No painful or painless swelling of the neck. No enlargement of the lymph nodes of the neck. No neck pain. LUNGS: No history of cough or sputum production. No wheezing. No history of sleep apnea. No history of hemoptysis. No history of pleuritic chest pain. No history of pulmonary embolism. CARDIAC: History of hypertension and hyperlipidemia. History of NC in 1994 after which he had 4-vessel coronary artery bypass graft surgery. No angina since then until today where he complains of chest pain but the story keeps differing from physician to physician. He has remote history of congestive heart failure, none recently. He denies any palpitations. No true syncope. No leg edema. Cannot assess dyspnea on exertion since the patient does not walk much. GASTROINTESTINAL: History of GERD and hiatal hernia present. No history of fatty food intolerance. No GI bleed. No history of abdominal pain. No history of altered bowel movements. No history of jaundice. No history of cirrhosis. RENAL: Denies any history of chronic kidney disease. No symptoms of UTI. No history of hematuria, pyuria or dysuria. History of enlarged prostate, symptoms controlled with medication. ENDOCRINE: History of diabetes mellitus type 2, insulin dependent. No history of polydipsia or polyuria. No history of heat or cold intolerance. History of diabetic neuropathy present. CENTRAL NERVOUS SYSTEM: History of diabetic neuropathy present. History of recurrent falls. History of early dementia. No history of TIA or CVA. No history of seizures, headaches or migraines. No history of sleep apnea. PSYCHIATRIC: History of early dementia and history of depression. No suicidal ideation. No history of homicidal ideation. VASCULAR: No history of calf or buttocks claudication. No history of DVT. HEMATOLOGICAL: No history of bleeding diathesis. No history of clotting disorders. PHYSICAL EXAMINATION: VITAL SIGNS: The patient's temperature is 99.4, pulse of 88 beats per minute, blood pressure is 119/60 with a mean of 79, respirations are 18 per minute, O2 sats are 92% on room air. HEENT: Head is atraumatic, normocephalic. Eyes: Pupils are equal, round, regular, reactive to light and accommodation. Extraocular movements are normal. There is no conjunctival pallor. There is no scleral icterus. Ears: Tympanic membranes are intact. External auditory canals are clear. Nose: There is no deviated nasal septum. There is no inflammation of the nasal mucous membranes. Mouth: Mucous membranes of the mouth are moist. Tongue is moist. There are no ulcers. There is no bleeding from the gums. Throat: There is no redness of the oropharynx. There are no exudates. SKIN: There are no skin rashes. There is no petechia or ecchymosis. There are no skin lesions. NECK: Supple. There is no JVD. Carotids are equal. There is no bruit. There is no goiter. There is no lymphadenopathy. Trachea central. LUNGS: Clear to auscultation and percussion without any rhonchi, rales or wheezing. There is no chest wall tenderness. HEART: S1 and S2 is heard. There is no S3 gallop. There is no S4 gallop. There is here are systolic murmur, left sternal border on the apex. There is no rub. ABDOMEN: Soft, nontender. There is no hepatosplenomegaly. Bowel sounds are well heard. There are no tender areas or masses. EXTREMITIES: Femorals are diminished. There are no femoral bruits. Leg pulses are diminished. Left leg is in a cast of Marcio wrapping. Right leg: There is no edema. Right leg pulse is slightly diminished. There is no cyanosis or clubbing on the right lower extremity. There is no evidence of DVT or cellulitis. CENTRAL NERVOUS SYSTEM: The patient is conscious, awake, alert, and oriented x3 with no focal deficits. PSYCHIATRIC: The patient does seem to be oriented but is very forgetful and gets easily confused. This may be due to his dementia but the patient does not appear to be agitated. He does not appear to be anxious. DIAGNOSTICS: The patient's sodium is 142.8, potassium 4.5, chloride is 102, CO2 is 26, the patient's BUN is 13, creatinine is 1.03, GFR is greater than 60, glucose is 250. His liver function tests are normal except for ALT which is low at 20. His troponin I is negative x3 at 0.015, 0.023, and 0.025. Although his CPK is slightly elevated, his CK-MB's are negative. His total protein is 6.5, albumin is 3.6, lipase is 73.5. The patient's white count is 14,500; hemoglobin is 12.7; hematocrit is 37; and platelet count is 140,000. The patient's EKG shows sinus rhythm, nonspecific IVCD of the left bundle branch block pattern. Chest x-ray is negative. IMPRESSION: 1. Chest pain. Patient not a good historian. He had various descriptions of his chest pain, albeit the patient does have some degree of dementia. Hence, since NC is ruled out, would recommend that the patient have an IV Lexiscan Cardiolite stress test and since the patient has a prior history of coronary artery disease with NC and coronary artery bypass graft surgery. Also, the patient would benefit from a stress test and an echo due to the fact that he needs preoperative cardiac risk assessment for future right knee surgery/replacement. 2. Fall, most likely secondary to diabetic neuropathy, causing the patient to accidentally fall. 3. No definite evidence of syncope. 4. Coronary artery disease, history of old myocardial infarction, history of coronary artery bypass graft surgery. 5. Hypertension. 6. Diabetes mellitus type 2, insulin dependent with diabetic neuropathy. 7. Hyperlipidemia. 8. Dementia. 9. Depression. 10. Spinal stenosis. 11. Degenerative joint disease of the back and of the knees. RECOMMENDATIONS: Would recommend continuing the patient on current medication including aspirin and beta lobo. Continue his anti-diabetic medication/insulin. Continue his Depakote and Prozac for his depression. Note that the patient is on DVT prophylaxis with subcutaneous Lovenox 40 mg daily. Since the patient's NC has been ruled out and in view of the patient's prior history of coronary artery disease and the patient being an unreliable historian, in spite of no definite EKG changes (EKG has atypical left bundle branch block type of IVCD), would recommend that the patient have an IV Cardiolite stress test in the morning. This will also help him to further risk certify the patient for impending right knee surgery in the near future. Also we will check an echo to assess for left ventricular ejection fraction, wall motion abnormalities, and to assess the patient's systolic murmur. This has been discussed with the patient and with the hospitalist taking care of the patient. TIME SPENT6: Note, the patient was seen at 1:30 p.m. A total of 60 minutes was spent on this patient with more than 50% of the time spent on direct patient care. Most of the history was from the patient's . Medications have been reviewed and the case discussed with the hospitalist taking care of the patient. We will schedule the patient, as mentioned earlier, for an echocardiogram and for an IV Lexiscan Cardiolite stress test for tomorrow morning. Medical decision making is of moderate to high complexity. We will follow with you. DICTATING PHYSICIAN: JAYLON RUEDA M.D. [id number] PHY#: [id number] ID: [id number] JOB#: [id number] ACCT: [id number] cc:JAYLON RUEDA M.D. > MTDD
[2018-01-07] MEDS: CEFAZOLIN 1 GM/D5W RTU 1 GM/50 ML RTUPB IV SCH ×2 (05:15→13:18)
[2018-01-07] MEDS: GABAPENTIN 300 MG CAPSULE PO SCH ×3 (05:16→22:34)
[2018-01-07] MEDS: ACETAMINOPHEN 325 MG TABLET PO PRN ×2 (05:16→20:49)
[2018-01-07] MEDS: LANSOPRAZOLE 15 MG TAB.RAP.DR PO SCH ×2 (05:17→18:40)
[2018-01-07 06:43] LABS: HEMATOCRIT 31.6 % (37.9-51.0); MEAN CORPUSCULAR HEMOGLOBIN 32.5 pg (27.0-33.4); MEAN CORPUSCULAR HGB CONC 34.7 g/dL (32.0-36.0); MEAN CORPUSCULAR VOLUME 94 fl (80-97); PLATELET COUNT 105 10^3/uL (150-450); RED BLOOD COUNT 3.37 10^6/uL (4.35-5.55); RED CELL DISTRIBUTION WIDTH 13.4 % (11.5-14.0); WHITE BLOOD COUNT 11.3 10^3/uL (4.0-10.5)
[2018-01-07 07:07] LABS: ANION GAP 10 (5-19); BLOOD UREA NITROGEN 14 mg/dL (7-20); CALCIUM 7.9 mg/dL (8.4-10.2); CARBON DIOXIDE 28 mmol/L (22-30); CHLORIDE 101 mmol/L (98-107); GLUCOSE 222 mg/dL (75-110); PHOSPHORUS 2.8 mg/dL (2.5-4.5); POTASSIUM 4.1 mmol/L (3.6-5.0)
[2018-01-07] MEDS: INSULIN LISPRO 100 UNIT/ML 3 ML VIAL SUBCUT PRN ×3 (08:01→22:33)
[2018-01-07] MEDS ORDERED: NORMAL SALINE 1000 ML 500 ML IV ONE (08:01)
--- NOTE | 2018-01-07 09:00 | EKG REPORT ---
SEVERITY:- ABNORMAL ECG - SINUS RHYTHM LEFT BUNDLE BRANCH BLOCK : Confirmed by: Csasandra Glass 07-Jan-2018 08:59:53
[2018-01-07] MEDS ORDERED: ENOXAPARIN SODIUM INJ 30 MG/0.3 ML DISP.SYRIN SUBCUT SCH (10:00)
[2018-01-07] MEDS ORDERED: REGADENOSON INJ 0.4 MG/5 ML DISP.SYRIN IV ONE (10:54)
[2018-01-07] MEDS: MEMANTINE HCL 10 MG TABLET PO SCH ×2 (12:08→18:40)
[2018-01-07] MEDS: MULTIVITAMIN TABLET PO SCH (12:08)
[2018-01-07] MEDS: SULFAMETHOXAZOLE/TRIMETHOPRIM 800-160 MG TABLET PO SCH ×2 (12:09→18:41)
[2018-01-07] MEDS: NORMAL SALINE 1000 ML 1,000 ML IV PRN ×2 (13:21→20:48)
[2018-01-07] MEDS: ENOXAPARIN SODIUM INJ 40 MG/0.4 ML DISP.SYRIN SUBCUT SCH (15:00)
[2018-01-07] MEDS: TAMSULOSIN HCL 0.4 MG CAP.SR.24H PO SCH (15:06)
--- NOTE | 2018-01-07 16:49 | XCELERA REPORT ---
[address] [address] Transthoracic Echocardiogram Report Name: PATRICE SHORT JR Age: 72 yrs Gender: Male : 1945 Patient Status: Inpatient Patient Location: [address] [place] [address] Study Date: 01/07/2018 02:15 PM Procedure: A two-dimensional transthoracic echocardiogram with color flow and Doppler was performed. Study Quality: Technically suboptimal. The study was technically difficult with many images being suboptimal in quality. Poor endocardial definition,and poor doppler interogation. Reason For Study: CP / CAD / CABG History: CP / CAD / CABG. Ordering Physician: JASMINA RUEDA Performed By: [facility] Interpretation Summary The left ventricle is grossly normal size. There is mild concentric left ventricular hypertrophy. The anteroseptum, the posterior wall,inferior wall contract normally.The apical and mid lateral wall,the IV setuum and the mid anterior wall contract normally.In these views the LVEF is > than 65%.The rest of the LV morocho are not seen. Doppler measurements suggest normal left ventricular diastolic function There is no evidence of mitral valve prolapse. There is no mitral valve stenosis. There is no mitral regurgitation noted. The aortic valve is mildly calcified There is no aortic valvular vegetation. There is no aortic valve stenosis There is no LVOT obstruction. No aortic regurgitation is present. There is no tricuspid stenosis. There is a trace amount of tricuspid regurgitation Right ventricular systolic pressure is normal. RVSP is 23 mm of Hg , with RA mean of 10. There is no pulmonic valvular stenosis. There is a mild amount of pulmonic regurgitation There is no pericardial effusion. MMode/2D Measurements & Calculations RVDd: 3.3 cm LVIDd: 5.3 cmFS: 40.5 % Ao root diam: 3.7 cm IVSd: 1.3 cm LVIDs: 3.1 cmEDV(Teich): 134.9 mlAo root area: 10.7 cm2 LVPWd: 1.2 cmESV(Teich): 39.4 ml EF(Teich): 70.8 % LVOT diam: 2.4 cm LVOT area: 4.4 cm2 Doppler Measurements & Calculations MV E max nelly: MV dec slope: Ao V2 max: LV V1 max P.1 cm/sec 142.0 cm/sec 3.8 mmHg MV A max nelly: 493.9 cm/sec2 Ao max PG: LV V1 max: 67.1 cm/sec MV dec time: 8.1 mmHg 97.6 cm/sec MV E/A: 1.6 0.21 sec PARDEEP(V,D): 3.0 cm2 PA V2 max: PI max nelly: TR max nelly: 127.6 cm/sec 190.3 cm/sec 193.7 cm/sec PA max P.6 mmHgPI max P.5 mmHg TR max PG: PI dec slope: 15.0 mmHg 149.0 cm/sec2 Left Ventricle The left ventricle is grossly normal size. There is mild concentric left ventricular hypertrophy. The anteroseptum, the posterior wall,inferior wall contract normally.The apical and mid lateral wall,the IV setuum and the mid anterior wall contract normally.In these views the LVEF is > than 65%.The rest of the LV morocho are not seen. Doppler measurements suggest normal left ventricular diastolic function. Right Ventricle The right ventricle is not well visualized secondary to technical limitations. Atria Right atrium not well visualized secondary to technical limitations. The left atrium is mildly dilated. Mitral Valve There is no evidence of mitral valve prolapse. There is no vegetation seen on the mitral valve. There is no mitral valve stenosis. There is no mitral regurgitation noted. Aortic Valve The aortic valve is mildly calcified. There is no aortic valvular vegetation. There is no aortic valve stenosis. There is no LVOT obstruction. No aortic regurgitation is present. Tricuspid Valve There is no tricuspid stenosis. There is a trace amount of tricuspid regurgitation. Right ventricular systolic pressure is normal. RVSP is 23 mm of Hg , with RA mean of 10. Pulmonic Valve There is no pulmonic valvular stenosis. There is a mild amount of pulmonic regurgitation. Great Vessels The aortic root is normal size. Effusions There is no pericardial effusion. : JASMINA RUEDA > Jasmina Rueda
--- NOTE | 2018-01-07 17:57 | PDOC PROGRESS REPORT ---
Subjective Progress Note for:: 01/07/18 Subjective:: PATRICE SHORT JR is a 72 year old male who was admitted for chest pain workup and L ankle fracture following a trip and fall. The patient has a PMH of Congestive Heart Failure, Coronary Artery Disease, Myocardial Infarction - 1994 - cabg x 4 , Hyperlipidema, Hypertension, BPH, absence seizure, DM. The patient was seen this morning on rounds following his Cardiolite stress test. The patient was resting comfortably in bed on supplemental oxygen. His is at the bedside. Patient has no complaints, he denies chest pain, shortness of breath, back pain. He states that his LLE pain is well-controlled with the current medication regimen. Reason For Visit: FALL, CHEST PAIN Physical Exam Vital Signs: Temp Pulse Resp BP Pulse Ox 99.8 F 82 16 138/56 H 93 01/07/18 15:20 01/07/18 15:20 01/07/18 15:20 01/07/18 15:20 01/07/18 15:20 Intake & Output 01/06/18 01/07/18 01/08/18 06:59 06:59 06:59 Intake Total 370 444 Output Total 800 300 Balance -430 144 Weight 104.9 kg General appearance: PRESENT: no acute distress Eye exam: PRESENT: conjunctiva pink, PERRLA Mouth exam: PRESENT: moist Teeth exam: PRESENT: poor dentation Neck exam: PRESENT: full ROM Respiratory exam: PRESENT: clear to auscultation ramon, symmetrical, unlabored Cardiovascular exam: PRESENT: +S1, +S2 Pulses: PRESENT: normal radial pulses, normal dorsalis pedis pul - R FOOT. UNABLE TO ASSESS L FOOT Vascular exam: PRESENT: normal capillary refill GI/Abdominal exam: PRESENT: normal bowel sounds, soft. ABSENT: tenderness Rectal exam: PRESENT: deferred Extremities exam: PRESENT: full ROM. ABSENT: pedal edema Musculoskeletal exam: PRESENT: full ROM. ABSENT: ambulatory Neurological exam: PRESENT: alert, awake, oriented to person, oriented to place , oriented to time, oriented to situation Psychiatric exam: PRESENT: appropriate affect Skin exam: PRESENT: dry, pallor, warm Results Laboratory Results: 01/07/18 06:07 01/07/18 06:07 01/07/18 01/07/18 01/07/18 06:07 06:07 06:07 WBC 11.3 H RBC 3.37 L Hgb 11.0 L Hct 31.6 L MCV 94 MCH 32.5 MCHC 34.7 RDW 13.4 Plt Count 105 L Sodium 139.0 Potassium 4.1 Chloride 101 Carbon Dioxide 28 Anion Gap 10 BUN 14 Creatinine 1.02 Est GFR ( Amer) > 60 Est GFR (Non-Af Amer) > 60 Glucose 222 H Calcium 7.9 L Phosphorus 2.8 Magnesium 2.0 TSH 3.53 01/06/18 01/06/18 01/06/18 11:26 11:26 17:30 Creatine Kinase 265 H 711 H CK-MB (CK-2) 1.61 Troponin I 0.023 01/06/18 01/06/18 01/06/18 17:30 23:33 23:33 Creatine Kinase 1077 H CK-MB (CK-2) 2.93 2.72 Troponin I 0.025 0.028 Impressions: Head CT 01/06/18 00:00 IMPRESSION: No acute findings. Age-appropriate minimal small vessel disease Stable punctate pontine calcification unchanged from 2013 EVIDENCE OF ACUTE STROKE: NO. Chest X-Ray 01/06/18 07:43 IMPRESSION: NO ACUTE RADIOGRAPHIC FINDING IN THE CHEST. Status: Imported from PACS Assessment & Plan - Diagnosis (1) Trimalleolar fracture of left ankle Qualifiers: Encounter type: subsequent encounter Fracture type: closed Fracture healing: with malunion Qualified Code(s): S82.852P - Displaced trimalleolar fracture of left lower leg, subsequent encounter for closed fracture with malunion Is this a current diagnosis for this admission?: Yes Plan: Patient initially presented to the emergency department on 01/05 status post trip and fall. Diagnosed with acute trimalleolar fracture with lateral subluxation of the talus, medial malleolus and distal fibular fragment. Dr. Chu, of orthopedics was consulted. In the ED, traction was applied and replacement of dislocated ankle was preformed by Dr. Ryder. Splint was applied and patient was instructed to follow up with Dr. Chu in his office the next day. Fall again at home early this morning. Returned to ED because patient could not ambulate. Dr. Chu consulted by ED physician Splint removed, 3 serosanguineous bullae and one ruptured bullae noted to the medial left ankle. No plans for orthopedic surgery until bullae are healed. LLE resplinted in the ED. Good CAP refill, poor tactile sensation secondary to chronic peripheral neuropathy. Keep LLE elevated when at rest. NWB LLE. Patient denies pain in LLE, tylenol as needed. (2) Fall Qualifiers: Encounter type: subsequent encounter Qualified Code(s): W19.XXXD - Unspecified fall, subsequent encounter Is this a current diagnosis for this admission?: Yes Plan: Patient's reports that the patient got up to use the bathroom using seated rolling walker. When attempting to move from seated walker to toilet, the patient reports he became dizzy and fell to the ground. Denies head trauma. Patient endorses possible LOC, he is amnesic to the event. Head CT normal. Fall precautions Patient will require acute rehab following hospitalization, it is clear that he is unable to navigate his home environment with his injury. Discharge planning aware. (3) Chest pain Qualifiers: Chest pain type: other chest pain Qualified Code(s): R07.89 - Other chest pain; R07.8 - Other chest pain Is this a current diagnosis for this admission?: Yes Plan: Patient complains of chest pain that started this morning. Patient reports long-standing history of intermittent chest pain since his four- vessel CABG. Patient was supposed to have full cardiac workup last month prior to knee surgery, but [facility] Describes chest pain as "soreness." Nonradiating. Denies shortness of breath, dyspnea, back pain, diaphoresis EKG shows LBBB (old) no evidence of acute infarction or ischemia. Initial troponin 0.015, peaked at 0.028, continue to trend every 6 hours Sublingual nitro available as needed for chest pain CXR benign Cardiology consulted. ECHOcardiogram pending Stress test normal, only indicative of old MA (4) Bullous eruption Is this a current diagnosis for this admission?: Yes Plan: 3 serosanguineous bullae and one ruptured bullae noted to the medial left ankle. No plans for orthopedic surgery until bullae are healed. 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 Accu-Cheks before meals at bedtime Humalog sliding scale for coverage (6) HTN (hypertension) Qualifiers: Hypertension type: essential hypertension Qualified Code(s): I10 - Essential (primary) hypertension Is this a current diagnosis for this admission?: Yes Plan: Patient endorses history of hypertension. The patient has remained relatively NORMOtensive since admission Restart home medications. (7) PTSD (post-traumatic stress disorder) Is this a current diagnosis for this admission?: Yes Plan: The patient endorses a history of PTSD. We will restart home medications (8) HLD (hyperlipidemia) Is this a current diagnosis for this admission?: Yes Plan: Patient endorses history of hyperlipidemia. Restart home dose statin therapy (9) BPH (benign prostatic hyperplasia) Qualifiers: Lower urinary tract symptom presence: symptoms absent Qualified Code(s): N40.0 - Benign prostatic hyperplasia without lower urinary tract symptoms Is this a current diagnosis for this admission?: Yes Plan: Patient endorses recent diagnosis of BPH. Restart home dose tamsulosin (10) Absence seizure disorder Qualifiers: Intractability: not intractable Status epilepticus: without status epilepticus Qualified Code(s): G40.A09 - Absence epileptic syndrome, not intractable, without status epilepticus Is this a current diagnosis for this admission?: Yes Plan: Patient endorses history of absence seizure disorder Last seizure was> 15 years ago Continue home regimen of Depakote (11) Rhabdomyolysis Qualifiers: Rhabdomyolysis type: traumatic Encounter type: initial encounter Qualified Code(s): T79.6XXA - Traumatic ischemia of muscle, initial encounter Is this a current diagnosis for this admission?: Yes Plan: Concern for Rhabo given rise in CK 243->1077 Unclear etiology at this time Initiate 500ML bolus this AM followed by maintenance IVF @ 75mL/hr Nursing staff reports patient's urine output appears dark kev Will monitor CK levels and continue to hydrate
--- NOTE | 2018-01-07 18:39 | PDOC CONSULTATION ---
Consultation Consult Date: 01/06/18 Consult reason:: Left ankle fracture History of Present Illness Admission Date/PCP: 01/06/18 09:41 Patient complains of: Left ankle pain and deformity History of Present Illness: PATRICE SHORT JR is a 72 year old male diabetic patient with diabetic neuropathy of the left foot. Patient is status post a fall on 01/05/18. Patient had a fracture dislocation trimalleolar ankle fracture on the left. He had a closed reduction successfully with x-rays and splinting. Patient was sent home to be nonweightbearing and follow-up with us as an outpatient by the patient had difficulty ambulating and was actually placing weight and even had a mechanical fall since his last visit to the ER when he had it closed reduced. Complains of pain but has decreased sensation. Patient was admitted for other medical issues and lack of safety for the patient to be home. Was consulted for surgical intervention. Past Medical History Cardiac Medical History: Reports: Congestive Heart Failure, Coronary Artery Disease, Myocardial Infarction - 1994 - cabg x 4 , Hyperlipidema, Hypertension - ON MEDS Pulmonary Medical History: Reports: Bronchitis - hx of , Pneumonia - 1994 Denies: Asthma, Chronic Obstructive Pulmonary Disease (COPD) EENT Medical History: Reports: Cataracts Neurological Medical History: Reports: Seizures - ABSENCE FOR 15 YRS- LAST SZ 15YRS AGO Endocrine Medical History: Reports: Diabetes Mellitus Type 1, Diabetes Mellitus Type 2 Renal/ Medical History: Reports: Other - BPH GI Medical History: Reports: Gastroesophageal Reflux Disease, Hiatal Hernia Musculoskeltal Medical History: Reports: Arthritis Psychiatric Medical History: Reports: Depression, Post Traumatic Stress Disorder Hematology: Denies: Anemia Past Surgical History Past Surgical History: Reports: Cholecystectomy, Coronary Artery Bypass Graft - x 4, Orthopedic Surgery - carpal tunnel, Vascular Surgery, Other - Shrapnel removal from abdomen Denies: Cardiac Catheterization, Tonsillectomy Social History Lives with: Spouse/Significant other - Smoking Status: Never Smoker Frequency of Alcohol Use: None Hx Recreational Drug Use: No Hx Prescription Drug Abuse: No - Advance Directive Resuscitation Status: Do Not Resuscitate - Patient states he does not want to be resuscitated if his heart should stop or if he stops breathing Family History Family History: CAD, DM, Malignancy - Father-renal carcinoma, Other - HTN Parental Family History Reviewed: No Children Family History Reviewed: No Sibling(s) Family History Reviewed.: No Medication/Allergy Home Medications: Aspirin [Aspirin 325 mg Tablet] 325 mg PO QHS 06/04/13 Divalproex Sodium [Depakote ER] 1,000 mg PO QHS 06/04/13 Memantine HCl [Namenda 10 Mg Tablet] 10 mg PO BID 06/04/13 Multivitamin [Multi Vitamin Daily] 1 each PO QAM 06/04/13 NPH, Human Insulin Isophane [Novolin N (NPH) Insulin 100 unit/mL] 70 unit SUBCUT QHS 06/04/13 NPH, Human Insulin Isophane [Novolin N (NPH) Insulin 100 unit/mL] 80 unit SUBCUT QAM 06/04/13 Omeprazole 20 mg PO BID 06/04/13 Phenytoin Sodium Extended [Dilantin] 200 mg PO QHS 06/04/13 Trazodone HCl 100 mg PO QHS 06/04/13 Simvastatin [Zocor 80 mg Tablet] 80 mg PO QHS 06/08/15 Fluoxetine HCl [Prozac 20 mg Capsule] 40 mg PO DAILY 01/06/18 Gabapentin 300 mg PO TID 01/06/18 Loratadine [Claritin] 10 mg PO DAILY 01/06/18 Meclizine HCl 25 mg PO TIDP PRN 01/06/18 Metoprolol Tartrate [Lopressor 50 mg Tablet] 25 mg PO Q12H 01/06/18 Tamsulosin HCl 0.4 mg PO DAILY 01/06/18 Tramadol HCl [Ultram 50 mg Tablet] 50 mg PO TIDP PRN 01/06/18 Allergies/Adverse Reactions: paroxetine HCl [From Paxil] Allergy (Unknown, Verified 01/06/18 11:53) Hives mushroom Allergy (Verified 01/06/18 11:53) naproxen [From Naprosyn] Allergy (Verified 01/06/18 11:53) Hives cabbage Adverse Reaction (Mild, Verified 01/06/18 11:53) Review of Systems Constitutional: ABSENT: headache(s) Eyes: ABSENT: visual disturbances Ears: ABSENT: hearing changes Cardiovascular: PRESENT: dyspnea on exertion Respiratory: ABSENT: hemoptysis Gastrointestinal: ABSENT: dysphagia, hematemesis Genitourinary: ABSENT: hematuria Musculoskeletal: PRESENT: as per HPI Integumentary: PRESENT: other - 3 fracture blisters over the medial aspect of the ankle. Neurological: PRESENT: frequent falls, numbness - Baseline diabetic neuropathy Psychiatric: ABSENT: hallucinations, homidical ideation, suicidal ideation Endocrine: ABSENT: cold intolerance, heat intolerance Hematologic/Lymphatic: ABSENT: lymphadenopathy Allergic/Immunologic: ABSENT: seasonal rhinorrhea Physical Exam Vital Signs: Temp Pulse Resp BP Pulse Ox 37.7 C 82 16 138/56 H 93 01/07/18 15:20 01/07/18 15:20 01/07/18 15:20 01/07/18 15:20 01/07/18 15:20 Intake & Output 01/06/18 01/07/18 01/08/18 06:59 06:59 06:59 Intake Total 370 444 Output Total 800 300 Balance -430 144 Weight 104.9 kg General appearance: PRESENT: no acute distress Eye exam: PRESENT: EOMI, PERRLA Ear exam: PRESENT: normal external ear exam Mouth exam: PRESENT: neck supple Neck exam: ABSENT: lymphadenopathy, thyromegaly Respiratory exam: PRESENT: symmetrical, unlabored. ABSENT: accessory muscle use , tachypnea Pulses: PRESENT: +1 pedal pulses bilateral Vascular exam: PRESENT: normal capillary refill GI/Abdominal exam: PRESENT: soft. ABSENT: distended, guarding, organolmegaly, rigid, tenderness Neurological exam: PRESENT: alert, awake, oriented to person, oriented to place , oriented to time, oriented to situation Skin exam: PRESENT: other - Skin laterally is intact with no fracture blisters. Fracture blisters noted on the medial aspect. Adult Front & Back Image: 1 - Splint is in place. Minimal deformity noted. No pressure points from the splint. Tender palpation and pain with range of motion. No sensation to gross light touch. Very faint palpable pulse with 2 second capillary refill Results Laboratory Results: 01/07/18 06:07 01/07/18 06:07 01/07/18 01/07/18 01/07/18 06:07 06:07 06:07 WBC 11.3 H RBC 3.37 L Hgb 11.0 L Hct 31.6 L MCV 94 MCH 32.5 MCHC 34.7 RDW 13.4 Plt Count 105 L Sodium 139.0 Potassium 4.1 Chloride 101 Carbon Dioxide 28 Anion Gap 10 BUN 14 Creatinine 1.02 Est GFR ( Amer) > 60 Est GFR (Non-Af Amer) > 60 Glucose 222 H Calcium 7.9 L Phosphorus 2.8 Magnesium 2.0 TSH 3.53 01/06/18 01/06/18 01/06/18 11:26 11:26 17:30 Creatine Kinase 265 H 711 H CK-MB (CK-2) 1.61 Troponin I 0.023 01/06/18 01/06/18 01/06/18 17:30 23:33 23:33 Creatine Kinase 1077 H CK-MB (CK-2) 2.93 2.72 Troponin I 0.025 0.028 Impressions: Head CT 01/06/18 00:00 IMPRESSION: No acute findings. Age-appropriate minimal small vessel disease Stable punctate pontine calcification unchanged from 2013 EVIDENCE OF ACUTE STROKE: NO. Chest X-Ray 01/06/18 07:43 IMPRESSION: NO ACUTE RADIOGRAPHIC FINDING IN THE CHEST. Status: Image reviewed by me Assessment & Plan - Diagnosis (1) Trimalleolar fracture of left ankle Qualifiers: Encounter type: subsequent encounter Fracture type: closed Fracture healing: with malunion Qualified Code(s): S82.852P - Displaced trimalleolar fracture of left lower leg, subsequent encounter for closed fracture with malunion Is this a current diagnosis for this admission?: Yes Plan: 72-year-old gentleman with ankle fracture dislocation. He has a trimalleolar ankle fracture on the left. Patient admitted for safety issues. Currently has fracture blisters medially which will prevent inhibitors from doing open reduction internal fixation at this time. If swelling does not decrease patient may be placed in an ex fix temporarily and then brought back for surgery. If swelling goes down may proceed with surgery as early as this weekend or early next week. In the meantime continue pain control ice and elevation and nonweightbearing.
[2018-01-07] MEDS: METOPROLOL TARTRATE 25 MG TABLET PO SCH (18:40)
[2018-01-07] MEDS: MUPIROCIN 2% OINTMENT 22 GM TP SCH (18:41)
[2018-01-07] MEDS: FLUOXETINE HCL 20 MG CAPSULE PO SCH (18:41)
--- NOTE | 2018-01-07 18:46 | DRAGON STRESS TEST REPORT ---
Intravenous Lexiscan Cardiolite stress test using single photon emmision computerized tomography. Date of procedure: 01/07/2018. Ordering Provider: Dr. Jasmina Montoya. Patient's status:In Patient. Indication: Chest pain. Coronary risk factors: Coronary artery disease, history of coronary artery bypass graft surgery, history of old myocardial infarction, age, hypertension, diabetes mellitus, and dyslipidemia. Resting EKG: Sinus Rhythm. Nonspecific intraventricular conduction defect. Stress EKG: No changes of ischemia. The patient had no chest pain or discomfort, and there were no arrhythmias seen. Reason for termination: Protocol. Conclusions: Normal EKG and hemodynamic response to IV Lexiscan. Nuclear data: At rest the patient was given 15.28 millicuries of technetium 99m sestamibi injected intravenously. As per protocol rest non gated SPECT images were obtained. Subsequently the patient was given intravenous Lexiscan at a dose of 0.4 mg in 5 mL intravenously, followed by flush with normal saline. Subsequently the stress dose of 44.7 millicuries of technetium 99m sestamibi was injected intravenously. As per protocol stress gated images were obtained. Nuclear interpretation: Review of images showed that there is a perfusion defect in the basal lateral wall in both rest and stress images. This area had decreased motion contraction and thickening consistent with old myocardial infarction. The rest of the segments of the myocardium had normal perfusion at rest, and normal perfusion post stress with IV Lexiscan. The rest of the segments of the myocardium had normal motion, contraction, and thickening by gated study. The T. I D. ratio was normal at 1.18. Computer read rest, and stress left ventricular ejection fraction were 41 %, and 44 %, respectively. Conclusion: 1. There is no scintigraphic evidence of Lexiscan induced myocardial ischemia. 2. There is scintigraphic evidence of myocardial infarction/scar of the basal lateral wall. 3. Recommend echocardiographic correlation for left ventricular ejection fraction. Recommendations: Aggressive treatment of coronary artery disease, hypertension, dyslipidemia, and diabetes mellitus, and aggressive risk factor modification, and treating the underlying co- morbidities. MTDD
--- NOTE | 2018-01-07 21:34 | PROGRESS NOTE E ---
Progress Note NAME: PATRICE SHORT : 1945 AGE: 72Y DATE: 01/07/2018 ROOM: 431 SUBJECTIVE: The patient denies any chest pain or discomfort. There is no PND or orthopnea. His pain from the trimalleolar fracture of his leg is well-controlled with current medication. There is no orthopnea. There is no PND. There is no leg edema. There is no chest pain of any kind and no definite anginal symptoms. There are no palpitations. There are no hernias seen on the monitor. OBJECTIVE: GENERAL: On examination, the patient is mildly obese. At present, in no acute distress. VITAL SIGNS: His temperature is 99.7 degrees Fahrenheit, pulse is 80 beats per minute, blood pressure is 125/52, respirations are 20 per minute, O2 sats are 92% on room air. HEENT: Head is atraumatic, normocephalic. Eyes: Pupils are equal, round, regular, reactive to light and accommodation. Extraocular movements are normal. There is no conjunctival pallor. There is no scleral icterus. ENT is negative. NECK: Supple. There is no JVD. Carotids are equal. There is no bruit. There is no goiter. There is no lymphadenopathy. Trachea is central. LUNGS: Clear to auscultation and percussion, without any rhonchi, rales or wheezing. There is no chest wall tenderness. HEART: S1, S2 are heard. There is no S3 gallop. There is no S4 gallop. There is a systolic murmur at the left sternal border, at the apex. There is no rub. ABDOMEN: Soft, nontender. There is no hepatosplenomegaly. Bowel sounds are well-heard. There is no tenderness or masses. EXTREMITIES: Femorals are diminished. There are no femoral bruits. Leg pulses diminished. Left leg is in a cast/Marcio wrapping. Right leg: There is no edema. Right leg pulses are slightly diminished. There is no cyanosis or clubbing of the right lower extremity. There is no evidence of DVT or cellulitis. 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 PSYCHIATRIC: At present, his judgment and insight are intact. His affect is normal. DIAGNOSTICS: The patient's Cardiolite stress test shows no reversible ischemia. There is a fixed defect in the base of the lateral wall. His EKG shows sinus rhythm with left bundle branch block pattern. The patient's echocardiogram shows technically suboptimal study. There is mild concentric left ventricular hypertrophy. The anterior septum, posterior wall and inferior wall contract normally. The apical and mid lateral wall, AV septum and mid anterior wall contract normally. In these views, the LV ejection fraction is greater than 65%. The rest of the LV morocho are not seen. There is no mitral valve stenosis. There is no mitral regurgitation. There is no aortic stenosis. There is no aortic regurgitation. There is trace amount of tricuspid regurgitation. Right ventricular systolic pressure is 23 mmHg, with an RA mean of 10. RA is 25 mmHg with RA mean of 10. There is no pericardial effusion. The patient's white count is 11,300, hemoglobin is 11, hematocrit is 31.6, platelet count is 105,000. The patient's sodium is 139, potassium 4.1, chloride 101, CO2 is 28. The patient's BUN is 14, creatinine is 1.02. GFR is greater than 60. His glucose is 222. His calcium is 7.9, phosphorus 2.8, magnesium is 2.0. His TSH is 3.53. IMPRESSION: 1. CHEST PAIN. Note, the patient's EKG shows left bundle branch block; hence, nondiagnostic. The patient's cardiac enzymes are negative. His stress test shows no reversible ischemia, but evidence of old FL. 2. FALL, MOST LIKELY DUE TO DIABETIC NEUROPATHY, CAUSING THE PATIENT TO HAVE AN ACCIDENTAL FALL. 3. NO DEFINITE EVIDENCE OF SYNCOPE. 4. CORONARY ARTERY DISEASE WITH HISTORY OF OLD MYOCARDIAL INFARCTION. HISTORY OF CORONARY ARTERY BYPASS GRAFT SURGERY. 5. HYPERTENSION. 6. DIABETES MELLITUS TYPE 2, INSULIN-DEPENDENT, WITH DIABETIC NEUROPATHY. 7. HYPERLIPIDEMIA. 8. DEMENTIA. 9. DEPRESSION. 10. SPINAL STENOSIS. 11. DEGENERATIVE JOINT DISEASE. RECOMMENDATIONS: Note, echo findings and stress test findings were discussed with patient and patient's . Would recommend continuing the current medications. Note, 35 minutes spent on the patient, with more than 50% of the time spent on direct patient care. Also, as mentioned above, lengthy discussions with the patient and patient's done. Medical decision-making at present is moderate to high complexity in view of the fact that the patient may require surgery. Surgery is not being done now, due to blisters. If the blisters resolve, then the patient will have surgery. Also will discuss the patient, orthopedic-de leon, as to his right knee surgery. Will discuss with Dr Chu and discuss with the hospitalist taking care of the patient. Will follow with you. Thank you. DICTATING PHYSICIAN: JAYLON RUEDA M.D. [id number] PHY#: [id number] ID: [id number] JOB#: [id number] ACCT: [id number] cc: > MTDD
[2018-01-07] MEDS: ASPIRIN 325 MG TABLET PO SCH (22:33)
[2018-01-07] MEDS: SIMVASTATIN 40 MG TABLET PO SCH (22:34)
[2018-01-07] MEDS: PHENYTOIN SODIUM EXTENDED 100 MG CAPSULE PO SCH (22:34)
[2018-01-07] MEDS: TRAZODONE HCL 50 MG TABLET PO SCH (22:34)
[2018-01-07] MEDS: DIVALPROEX SODIUM 500 MG TAB.SR.24H PO SCH (22:34)
[2018-01-08] MEDS: ACETAMINOPHEN 325 MG TABLET PO PRN ×2 (01:04→22:58)
[2018-01-08] MEDS: LANSOPRAZOLE 15 MG TAB.RAP.DR PO SCH ×2 (06:08→17:40)
[2018-01-08] MEDS: METOPROLOL TARTRATE 25 MG TABLET PO SCH ×2 (06:08→17:40)
[2018-01-08] MEDS: GABAPENTIN 300 MG CAPSULE PO SCH ×3 (06:09→22:58)
[2018-01-08 08:11] LABS: MEAN CORPUSCULAR HEMOGLOBIN 32.9 pg (27.0-33.4); MEAN CORPUSCULAR HGB CONC 35.4 g/dL (32.0-36.0); MEAN CORPUSCULAR VOLUME 93 fl (80-97); PLATELET COUNT 106 10^3/uL (150-450); RED BLOOD COUNT 3.33 10^6/uL (4.35-5.55); RED CELL DISTRIBUTION WIDTH 13.2 % (11.5-14.0); WHITE BLOOD COUNT 10.2 10^3/uL (4.0-10.5)
[2018-01-08 08:28] LABS: ANION GAP 12 (5-19); BLOOD UREA NITROGEN 14 mg/dL (7-20); CALCIUM 7.7 mg/dL (8.4-10.2); CARBON DIOXIDE 27 mmol/L (22-30); CHLORIDE 101 mmol/L (98-107); CREATINE KINASE 695 U/L (55-170); GLUCOSE 214 mg/dL (75-110); SODIUM 139.5 mmol/L (137-145)
[2018-01-08 08:39] LABS: CREATINE KINASE MB 2.52 ng/mL (<4.55); TROPONIN I 0.025 ng/mL
[2018-01-08] MEDS: ENOXAPARIN SODIUM INJ 40 MG/0.4 ML DISP.SYRIN SUBCUT SCH (09:26)
[2018-01-08] MEDS: SULFAMETHOXAZOLE/TRIMETHOPRIM 800-160 MG TABLET PO SCH ×2 (09:26→17:39)
[2018-01-08] MEDS: MEMANTINE HCL 10 MG TABLET PO SCH ×2 (09:26→17:39)
[2018-01-08] MEDS: MULTIVITAMIN TABLET PO SCH (09:26)
[2018-01-08] MEDS ORDERED: SENNOSIDES/DOCUSATE 8.6-50 MG 1 EACH TABLET PO PRN (11:58)
[2018-01-08] MEDS: TAMSULOSIN HCL 0.4 MG CAP.SR.24H PO SCH (16:35)
[2018-01-08] MEDS: FLUOXETINE HCL 20 MG CAPSULE PO SCH (17:39)
[2018-01-08] MEDS: MUPIROCIN 2% OINTMENT 22 GM TP SCH (18:10)
--- NOTE | 2018-01-08 20:46 | PDOC PROGRESS REPORT ---
Subjective Progress Note for:: 01/08/18 Subjective:: PATRICE SHORT JR is a 72 year old male who was admitted for chest pain workup and L ankle fracture following a trip and fall. The patient has a PMH of Congestive Heart Failure, Coronary Artery Disease, Myocardial Infarction - 1994 - cabg x 4 , Hyperlipidema, Hypertension, BPH, absence seizure, DM. The patient was seen this morning on rounds. The patient was resting comfortably in bed on supplemental oxygen. His is at the bedside. Patient has no complaints, he denies chest pain, shortness of breath, back pain. He states that his LLE pain is well-controlled with the current medication regimen. He is asking when he can have surgery to repair his ankle. Reason For Visit: FALL, CHEST PAIN Physical Exam Vital Signs: Temp Pulse Resp BP Pulse Ox 99.5 F 82 20 128/69 H 92 01/08/18 16:04 01/08/18 16:04 01/08/18 16:04 01/08/18 16:04 01/08/18 18:48 Intake & Output 01/07/18 01/08/18 01/09/18 06:59 06:59 06:59 Intake Total 370 2559 1478 Output Total 962 328 3456 Balance -430 1834 478 Weight 104.9 kg 109.7 kg General appearance: PRESENT: no acute distress Eye exam: PRESENT: conjunctiva pink, PERRLA Mouth exam: PRESENT: moist Teeth exam: PRESENT: poor dentation Neck exam: PRESENT: full ROM Respiratory exam: PRESENT: clear to auscultation ramon, symmetrical, unlabored Cardiovascular exam: PRESENT: +S1, +S2 Pulses: PRESENT: normal radial pulses, normal dorsalis pedis pul - R FOOT. UNABLE TO ASSESS LLE - WRAPPED IN TEMPORARY SPLINT GI/Abdominal exam: PRESENT: normal bowel sounds, soft. ABSENT: tenderness Rectal exam: PRESENT: deferred Extremities exam: PRESENT: full ROM. ABSENT: pedal edema Musculoskeletal exam: PRESENT: full ROM. ABSENT: ambulatory Neurological exam: PRESENT: alert, awake, oriented to person, oriented to place , oriented to time, oriented to situation. ABSENT: normal gait Psychiatric exam: PRESENT: appropriate affect Skin exam: PRESENT: dry, intact, warm Results Laboratory Results: 01/08/18 07:20 01/08/18 07:20 01/08/18 01/08/18 07:20 07:20 WBC 10.2 RBC 3.33 L Hgb 11.0 L Hct 31.0 L MCV 93 MCH 32.9 MCHC 35.4 RDW 13.2 Plt Count 106 L Sodium 139.5 Potassium 4.0 Chloride 101 Carbon Dioxide 27 Anion Gap 12 BUN 14 Creatinine 0.91 Est GFR ( Amer) > 60 Est GFR (Non-Af Amer) > 60 Glucose 214 H Calcium 7.7 L Phosphorus 3.0 Magnesium 2.1 01/06/18 01/06/18 01/06/18 11:26 11:26 17:30 Creatine Kinase 265 H 711 H CK-MB (CK-2) 1.61 Troponin I 0.023 NT-Pro-B Natriuret Pep 01/06/18 01/06/18 01/06/18 17:30 23:33 23:33 Creatine Kinase 1077 H CK-MB (CK-2) 2.93 2.72 Troponin I 0.025 0.028 NT-Pro-B Natriuret Pep 01/08/18 01/08/18 01/08/18 07:20 07:20 07:20 Creatine Kinase 695 H CK-MB (CK-2) 2.52 Troponin I 0.025 NT-Pro-B Natriuret Pep 2610 H Impressions: Head CT 01/06/18 00:00 IMPRESSION: No acute findings. Age-appropriate minimal small vessel disease Stable punctate pontine calcification unchanged from 2013 EVIDENCE OF ACUTE STROKE: NO. Chest X-Ray 01/06/18 07:43 IMPRESSION: NO ACUTE RADIOGRAPHIC FINDING IN THE CHEST. Status: Imported from PACS Assessment & Plan - Diagnosis (1) Trimalleolar fracture of left ankle Qualifiers: Encounter type: subsequent encounter Fracture type: closed Fracture healing: with malunion Qualified Code(s): S82.852P - Displaced trimalleolar fracture of left lower leg, subsequent encounter for closed fracture with malunion Is this a current diagnosis for this admission?: Yes Plan: Patient initially presented to the emergency department on 01/05 status post trip and fall. Diagnosed with acute trimalleolar fracture with lateral subluxation of the talus, medial malleolus and distal fibular fragment. Dr. Chu, of orthopedics was consulted. In the ED, traction was applied and replacement of dislocated ankle was preformed by Dr. Ryder. Splint was applied and patient was instructed to follow up with Dr. Chu in his office the next day. Fall again at home early the next morning. Returned to ED because patient could not ambulate. Dr. Chu consulted by ED physician Splint removed, 3 serosanguineous bullae and one ruptured bullae noted to the medial left ankle. No plans for orthopedic surgery until bullae are healed. LLE resplinted in the ED. Good CAP refill, poor tactile sensation secondary to chronic peripheral neuropathy. Keep LLE elevated when at rest. NWB LLE. Patient denies pain in LLE, tylenol as needed. (2) Fall Qualifiers: Encounter type: subsequent encounter Qualified Code(s): W19.XXXD - Unspecified fall, subsequent encounter Is this a current diagnosis for this admission?: Yes Plan: Patient's reports that the patient got up to use the bathroom using seated rolling walker. When attempting to move from seated walker to toilet, the patient reports he became dizzy and fell to the ground. Denies head trauma. Patient endorses possible LOC, he is amnesic to the event. Head CT normal. Fall precautions Patient will require acute rehab following hospitalization, it is clear that he is unable to navigate his home environment with his injury. Discharge planning aware. (3) Chest pain Qualifiers: Chest pain type: other chest pain Qualified Code(s): R07.89 - Other chest pain; R07.8 - Other chest pain Is this a current diagnosis for this admission?: Yes Plan: Resolved. Patient c/o chest pain upon arrival the ED. Patient reports long-standing history of intermittent chest pain since his four- vessel CABG. Patient was supposed to have full cardiac workup last month prior to knee surgery, but [facility] Describes chest pain as "soreness." Nonradiating. Denies shortness of breath, dyspnea, back pain, diaphoresis EKG shows LBBB (old) no evidence of acute infarction or ischemia. Initial troponin 0.015, peaked at 0.028, no longer trending Sublingual nitro available as needed for chest pain CXR benign Cardiology consulted. ECHOcardiogram benign Stress test normal, only indicative of old CA Per Cardiology, the patient is cleared for surgery (4) Bullous eruption Is this a current diagnosis for this admission?: Yes Plan: 3 serosanguineous bullae and one ruptured bullae noted to the medial left ankle. No plans for orthopedic surgery until bullae are healed. Wound culture pending Continue TMP-SMX DS po BID for MRSA coverage (5) Diabetes Qualifiers: Diabetes mellitus type: type 2 Diabetes mellitus custodial insulin use: with meterman use Diabetes mellitus complication status: without complication Qualified Code(s): E11.9 - Type 2 diabetes mellitus without complications; Z79.4 - [facility] (current) use of insulin; Z79.4 - watermelon inspector ( current) use of insulin; Z79.4 - watermelon inspector (current) use of insulin; Z79.4 - [facility] (current) use of insulin Is this a current diagnosis for this admission?: Yes Plan: Patient endorses history of diabetes. Accu-Cheks before meals at bedtime Humalog sliding scale for coverage (6) HTN (hypertension) Qualifiers: Hypertension type: essential hypertension Qualified Code(s): I10 - Essential (primary) hypertension Is this a current diagnosis for this admission?: Yes Plan: Patient endorses history of hypertension. The patient has remained relatively NORMOtensive since admission Restart home medications. (7) PTSD (post-traumatic stress disorder) Is this a current diagnosis for this admission?: Yes Plan: The patient endorses a history of PTSD. We will restart home medications (8) HLD (hyperlipidemia) Qualifiers: Hyperlipidemia type: unspecified Qualified Code(s): E78.5 - Hyperlipidemia , unspecified Is this a current diagnosis for this admission?: Yes Plan: Patient endorses history of hyperlipidemia. Restart home dose statin therapy (9) BPH (benign prostatic hyperplasia) Qualifiers: Lower urinary tract symptom presence: symptoms absent Qualified Code(s): N40.0 - Benign prostatic hyperplasia without lower urinary tract symptoms Is this a current diagnosis for this admission?: Yes Plan: Patient endorses recent diagnosis of BPH. Restart home dose tamsulosin (10) Absence seizure disorder Qualifiers: Intractability: not intractable Status epilepticus: without status epilepticus Qualified Code(s): G40.A09 - Absence epileptic syndrome, not intractable, without status epilepticus Is this a current diagnosis for this admission?: Yes Plan: Patient endorses history of absence seizure disorder Last seizure was> 15 years ago Continue home regimen of Depakote (11) Rhabdomyolysis Qualifiers: Rhabdomyolysis type: traumatic Encounter type: initial encounter Qualified Code(s): T79.6XXA - Traumatic ischemia of muscle, initial encounter Is this a current diagnosis for this admission?: Yes Plan: Improving. Concern for Rhabo given rise in CK 243->1077. Now decreased to 695 Unclear etiology at this time Initiate 500ML bolus this AM followed by maintenance IVF @ 75mL/hr Nursing staff reports patient's urine output appears dark kev Will monitor CK levels and continue to hydrate - Time Time Spent with patient: 15-24 minutes Medications reviewed and adjusted accordingly: Yes Anticipated discharge: Acute Rehab - Inpatient Certification Based on my medical assessment, after consideration of the patient's comorbidities, presenting symptoms, or acuity I expect that the services needed warrant INPATIENT care.: Yes I certify that my determination is in accordance with my understanding of Medicare's requirements for reasonable and necessary INPATIENT services [42 CFR 412.3e].: Yes Medical Necessity: Risk of Complication if Not Cared For in Hospital
--- NOTE | 2018-01-08 21:54 | PROGRESS NOTE E ---
Progress Note NAME: PATRICE SHORT : 1945 AGE: 72Y DATE: 01/08/2018 ROOM: 431 SUBJECTIVE: The patient denies any chest pain or discomfort. There is no PND or orthopnea. His leg pain is well controlled with current medication. The patient denies any palpitations. There is no further anginal symptoms. There is no leg OBJECTIVE: GENERAL: On examination, the patient is mildly obese. At present, in no acute distress. Patient, at present, seems to be awake, alert and oriented x3 and appropriate. VITAL SIGNS: He is afebrile with a temperature of 98.8 degrees Fahrenheit, pulse is 76 beats per minute, blood pressure is 136/53, respirations are 20 per minute, O2 sats are 93% on 2 L nasal cannula. HEENT: Head is atraumatic, normocephalic. Eyes: Pupils are equal, round, regular, reactive to light and accommodation. Extraocular movements are normal. There is no conjunctival pallor. There is no scleral icterus. ENT is negative. NECK: Supple. There is no JVD. Carotids are equal. There is no bruit. There is no goiter. There is no lymphadenopathy. Trachea is central. LUNGS: Clear to auscultation and percussion, without any rhonchi, rales or wheezing. There is no chest wall tenderness. HEART: S1, S2 are heard. There is no S3 gallop. There is no S4 gallop. There is a systolic murmur at the left sternal border, at the apex. There is no rub. ABDOMEN: Soft, nontender. There is no hepatosplenomegaly. Bowel sounds are well-heard. There is no tender area or masses. EXTREMITIES: Femorals are diminished. Left lower extremity is in a cast. Right lower extremity pulse is slightly diminished. The right femoral is diminished. There are no femoral bruits bilaterally. The left femoral is slightly diminished. There is no cyanosis or clubbing of the right lower extremity. There is no pedal edema on the right leg. 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 PSYCHIATRIC: At present, the patient's judgment and insight are intact. His affect is normal. Note that the echo findings were discussed with the patient and patient's . The patient's white count is 10,200, hemoglobin is 11, hematocrit is 31, platelet count is 106,000. The patient's sodium is 139.5, potassium is 4.0, chloride is 101, CO2 is 27. The patient's BUN is 14, creatinine is 0.91. GFR is greater than 60. His glucose is 214. Calcium is low at 7.7, phosphorus 2.0, magnesium is 2.1. The patient's troponin I is 0.025. CKMB is negative. His anticoagulant is 2,610. IMPRESSION: 1. CHEST PAIN, NONCARDIAC MOST LIKELY. NO DEFINITIVE EVIDENCE OF OK AND NEGATIVE STRESS TEST FOR ISCHEMIA. 2. FALL, PROBABLY MOST LIKELY SECONDARY TO DIABETIC NEUROPATHY, CAUSING THE PATIENT TO HAVE AN ACCIDENTAL FALL. 3. NO DEFINITE EVIDENCE OF SYNCOPE. 4. CORONARY ARTERY DISEASE WITH HISTORY OF OLD MYOCARDIAL INFARCTION. HISTORY OF CORONARY ARTERY BYPASS GRAFT SURGERY. 5. HYPERTENSION. 6. DIABETES MELLITUS TYPE 2, INSULIN-DEPENDENT, WITH DIABETIC NEUROPATHY. 7. HYPERLIPIDEMIA. 8. DEMENTIA. 9. DEPRESSION. 10. SPINAL STENOSIS. 11. RIGHT KNEE JOINT ARTHRITIS. Has been advised in the recent past that the patient needs right knee surgery/replacement. 12. FALL AND TRIMALLEOLAR FRACTURE OF THE LEFT LOWER LEG. 13. A NORMAL STRESS TEST MENTIONED EARLIER WITH NO EVIDENCE OF ISCHEMIA BUT THERE IS PRIOR MYOCARDIAL INFARCTION. 14. PREOPERATIVE CARDIAC ASSESSMENT. The patient will be an acceptable cardiac risk/low cardiac risk for this procedure of surgery for both the trimalleolar fracture and for the right knee replacement to be done in the near future. RECOMMENDATIONS: Patient's cardiac status is stable. Will sign off. Note, major decision making is of high complexity. Note, 40 minutes spent on the patient, with more than 50% of the time spent on direct patient care with discussions of the stress test and the echo with the patient and the patient's family. Discussed with the hospitalist taking care of the patient. Will sign off. Please call me if my services are needed. Thanking you. DICTATING PHYSICIAN: JAYLON RUEDA M.D. [id number] PHY#: [id number] ID: [id number] JOB#: [id number] ACCT: [id number] cc: > [facility]
[2018-01-08] MEDS: DIVALPROEX SODIUM 500 MG TAB.SR.24H PO SCH (22:57)
[2018-01-08] MEDS: PHENYTOIN SODIUM EXTENDED 100 MG CAPSULE PO SCH (22:57)
[2018-01-08] MEDS: SIMVASTATIN 40 MG TABLET PO SCH (22:57)
[2018-01-08] MEDS: ASPIRIN 325 MG TABLET PO SCH (22:58)
[2018-01-08] MEDS: TRAZODONE HCL 50 MG TABLET PO SCH (22:58)
[2018-01-08] MEDS: INSULIN LISPRO 100 UNIT/ML 3 ML VIAL SUBCUT PRN (23:05)
[2018-01-09] MEDS: LANSOPRAZOLE 15 MG TAB.RAP.DR PO SCH ×2 (05:59→17:21)
[2018-01-09] MEDS: GABAPENTIN 300 MG CAPSULE PO SCH ×3 (05:59→21:47)
[2018-01-09] MEDS: METOPROLOL TARTRATE 25 MG TABLET PO SCH ×2 (06:00→17:22)
[2018-01-09 07:28] LABS: ANION GAP 8 (5-19); BLOOD UREA NITROGEN 14 mg/dL (7-20); CALCIUM 8.1 mg/dL (8.4-10.2); CARBON DIOXIDE 27 mmol/L (22-30); CHLORIDE 105 mmol/L (98-107); CREATINE KINASE 501 U/L (55-170); GLUCOSE 205 mg/dL (75-110); PHOSPHORUS 2.6 mg/dL (2.5-4.5); POTASSIUM 4.2 mmol/L (3.6-5.0); SODIUM 139.6 mmol/L (137-145)
[2018-01-09] MEDS: INSULIN LISPRO 100 UNIT/ML 3 ML VIAL SUBCUT PRN ×4 (08:47→21:53)
[2018-01-09] MEDS ORDERED: CEFAZOLIN 2 GM/D5W RTU 2 GM/50 ML RTUPB IV SCH (09:45)
[2018-01-09] MEDS: ENOXAPARIN SODIUM INJ 40 MG/0.4 ML DISP.SYRIN SUBCUT SCH (09:54)
[2018-01-09] MEDS: SULFAMETHOXAZOLE/TRIMETHOPRIM 800-160 MG TABLET PO SCH ×2 (09:54→17:21)
[2018-01-09] MEDS: MULTIVITAMIN TABLET PO SCH (09:54)
[2018-01-09] MEDS: MEMANTINE HCL 10 MG TABLET PO SCH ×2 (09:55→17:21)
[2018-01-09] MEDS ORDERED: CEFAZOLIN SODIUM 2 GM in NORMAL SALINE 100 ML IV ONE (11:00)
--- NOTE | 2018-01-09 14:56 | PDOC PROGRESS REPORT ---
Subjective Progress Note for:: 01/09/18 Subjective:: PATRICE SHORT JR is a 72 year old male who was admitted for chest pain workup and L ankle fracture following a trip and fall. The patient has a PMH of Congestive Heart Failure, Coronary Artery Disease, Myocardial Infarction - 1994 - cabg x 4 , Hyperlipidema, Hypertension, BPH, absence seizure, DM. The patient was seen this morning on rounds. The patient was resting comfortably in the bedside recliner. Patient has no complaints, he denies chest pain, shortness of breath, back pain. He denies pain in his LLE, states "I can't feel anything in my legs because of my neuropathy". He is asking when he can have surgery to repair his ankle. Part of the luis bandage was taken down in order to expose the bullae. Able to visualize a ruptured bullae on the L medial ankle surrounded by erythema and +1 pitting edema. Wound culture obtained at that time. Only a small area was visualized, difficult to determine the extent of the redness and swelling without entirely removing the splint. Plan to expand antibiotic coverage for the time being. Will discuss further with Ortho. Reason For Visit: FALL, CHEST PAIN Physical Exam Vital Signs: Temp Pulse Resp BP Pulse Ox 99.4 F 80 22 H 156/69 H 95 01/09/18 12:00 01/09/18 12:00 01/09/18 12:00 01/09/18 12:00 01/09/18 12:00 Intake & Output 01/08/18 01/09/18 01/10/18 06:59 06:59 06:59 Intake Total 2559 2639 Output Total 725 1220 Balance 1834 1419 Weight 109.7 kg 106.1 kg General appearance: PRESENT: no acute distress Head exam: PRESENT: atraumatic Eye exam: PRESENT: conjunctiva pink, PERRLA Mouth exam: PRESENT: moist Neck exam: PRESENT: full ROM Respiratory exam: PRESENT: clear to auscultation ramon, symmetrical, unlabored Pulses: PRESENT: normal radial pulses, normal dorsalis pedis pul - ON R FOOT. UNABLE TO ASSESS L FOOT WRAPPED IN SPLINT GI/Abdominal exam: PRESENT: normal bowel sounds, soft. ABSENT: tenderness Rectal exam: PRESENT: deferred Extremities exam: ABSENT: full ROM - PARTIAL ROM OF LLE DUE TO SPLINT Musculoskeletal exam: ABSENT: ambulatory, full ROM Neurological exam: PRESENT: alert, awake, oriented to person, oriented to place , oriented to time, oriented to situation Psychiatric exam: PRESENT: appropriate affect Skin exam: PRESENT: dry, erythema - L ANKLE, vesicles - BULLAE TO L ANKLE Results Laboratory Results: 01/08/18 07:20 01/09/18 05:50 01/09/18 01/09/18 05:50 05:50 Sodium 139.6 Potassium 4.2 Chloride 105 Carbon Dioxide 27 Anion Gap 8 BUN 14 Creatinine 0.88 Est GFR ( Amer) > 60 Est GFR (Non-Af Amer) > 60 Glucose 205 H Calcium 8.1 L Phosphorus 2.6 Magnesium 2.1 C-Reactive Protein 203.2 H 01/06/18 01/06/18 01/06/18 11:26 11:26 17:30 Creatine Kinase 265 H 711 H CK-MB (CK-2) 1.61 Troponin I 0.023 NT-Pro-B Natriuret Pep 01/06/18 01/06/18 01/06/18 17:30 23:33 23:33 Creatine Kinase 1077 H CK-MB (CK-2) 2.93 2.72 Troponin I 0.025 0.028 NT-Pro-B Natriuret Pep 01/08/18 01/08/18 01/08/18 07:20 07:20 07:20 Creatine Kinase 695 H CK-MB (CK-2) 2.52 Troponin I 0.025 NT-Pro-B Natriuret Pep 2610 H 01/09/18 01/09/18 05:50 05:50 Creatine Kinase 501 H CK-MB (CK-2) Troponin I NT-Pro-B Natriuret Pep 5000 H Impressions: Head CT 01/06/18 00:00 IMPRESSION: No acute findings. Age-appropriate minimal small vessel disease Stable punctate pontine calcification unchanged from 2014 EVIDENCE OF ACUTE STROKE: NO. Chest X-Ray 01/06/18 07:43 IMPRESSION: NO ACUTE RADIOGRAPHIC FINDING IN THE CHEST. Status: Imported from PACS Assessment & Plan - Diagnosis (1) Trimalleolar fracture of left ankle Qualifiers: Encounter type: subsequent encounter Fracture type: closed Fracture healing: with malunion Qualified Code(s): S82.852P - Displaced trimalleolar fracture of left lower leg, subsequent encounter for closed fracture with malunion Is this a current diagnosis for this admission?: Yes Plan: Patient initially presented to the emergency department on 01/05 status post trip and fall. Diagnosed with acute trimalleolar fracture with lateral subluxation of the talus, medial malleolus and distal fibular fragment. Dr. Chu, of orthopedics was consulted. In the ED, traction was applied and replacement of dislocated ankle was preformed by Dr. Ryder. Splint was applied and patient was instructed to follow up with Dr. Chu in his office the next day. Fall again at home early the next morning. Returned to ED because patient could not ambulate. Dr. Chu consulted again by ED physician Splint removed, 3 serosanguineous bullae and one ruptured bullae noted to the medial left ankle. No plans for orthopedic surgery until bullae are healed. LLE re-splinted in the ED. Good CAP refill, poor tactile sensation secondary to chronic peripheral neuropathy. Keep LLE elevated when at rest. NWB LLE. Patient denies pain in LLE, tylenol as needed. (2) Fall Qualifiers: Encounter type: subsequent encounter Qualified Code(s): W19.XXXD - Unspecified fall, subsequent encounter Is this a current diagnosis for this admission?: Yes Plan: Patient's reports that the patient got up to use the bathroom using seated rolling walker. When attempting to move from seated walker to toilet, the patient reports he became dizzy and fell to the ground. Denies head trauma. Patient endorses possible LOC, he is amnesic to the event. Head CT normal. Fall precautions Patient will require acute rehab following hospitalization, it is clear that he is unable to navigate his home environment with his injury. Discharge planning aware. (3) Chest pain Qualifiers: Chest pain type: other chest pain Qualified Code(s): R07.89 - Other chest pain; R07.8 - Other chest pain Is this a current diagnosis for this admission?: Yes Plan: Resolved. Patient c/o chest pain upon arrival the ED. EKG shows LBBB (old) no evidence of acute infarction or ischemia. Initial troponin 0.015, peaked at 0.028, no longer trending CXR benign Cardiology consulted. ECHOcardiogram benign Stress test normal, only indicative of old ID Per Cardiology, the patient is cleared for surgery (4) Bullous eruption Is this a current diagnosis for this admission?: Yes Plan: 3 serosanguineous bullae and one ruptured bullae noted to the medial left ankle by ER physician. No plans for orthopedic surgery until bullae are healed. Able to visualize small area of L medical ankle today, appears erythematous and +1 pitting edema. Difficult to assess the extent of the erythema and edema without completely removing the splint. Could possibly develop into cellulitis if ruptured bullae become infected. Plan to expand antibiotic coverage today. Initiate Cefazolin 2 Gm q8hrs (50mg/kg/d divided into 3 doses, according to the 2014 IDSA guidelines for treatment of SSTI) Wound culture pending (5) Diabetes Qualifiers: Diabetes mellitus type: type 2 Diabetes mellitus alf insulin use: with alf use Diabetes mellitus complication status: without complication Qualified Code(s): E11.9 - Type 2 diabetes mellitus without complications; Z79.4 - retirement (current) use of insulin; Z79.4 - retirement ( current) use of insulin; Z79.4 - retirement (current) use of insulin; Z79.4 - building services technician (current) use of insulin Is this a current diagnosis for this admission?: Yes Plan: Patient endorses history of diabetes. Accu-Cheks before meals at bedtime Humalog sliding scale for coverage (6) HTN (hypertension) Qualifiers: Hypertension type: essential hypertension Qualified Code(s): I10 - Essential (primary) hypertension Is this a current diagnosis for this admission?: Yes Plan: Patient endorses history of hypertension. The patient has remained relatively NORMOtensive since admission Restart home medications. (7) PTSD (post-traumatic stress disorder) Is this a current diagnosis for this admission?: Yes Plan: The patient endorses a history of PTSD. We will restart home medications (8) HLD (hyperlipidemia) Qualifiers: Hyperlipidemia type: unspecified Qualified Code(s): E78.5 - Hyperlipidemia , unspecified Is this a current diagnosis for this admission?: Yes Plan: Patient endorses history of hyperlipidemia. Restart home dose statin therapy (9) BPH (benign prostatic hyperplasia) Qualifiers: Lower urinary tract symptom presence: symptoms absent Qualified Code(s): N40.0 - Benign prostatic hyperplasia without lower urinary tract symptoms Is this a current diagnosis for this admission?: Yes Plan: Patient endorses recent diagnosis of BPH. Restart home dose tamsulosin (10) Absence seizure disorder Qualifiers: Intractability: not intractable Status epilepticus: without status epilepticus Qualified Code(s): G40.A09 - Absence epileptic syndrome, not intractable, without status epilepticus Is this a current diagnosis for this admission?: Yes Plan: Patient endorses history of absence seizure disorder Last seizure was> 15 years ago Continue home regimen of Depakote will check depakote level in AM (11) Rhabdomyolysis Qualifiers: Rhabdomyolysis type: traumatic Encounter type: initial encounter Qualified Code(s): T79.6XXA - Traumatic ischemia of muscle, initial encounter Is this a current diagnosis for this admission?: Yes Plan: Improving. Concern for Rhabo given rise in CK 243->1077. Now decreased to 501 Unclear etiology at this time Treated with maintenance IVF @ 75mL/hr, have since discontinued. Patient tolerating PO. Will monitor CK levels and continue to hydrate - Time Time Spent with patient: 15-24 minutes Medications reviewed and adjusted accordingly: Yes Anticipated discharge: Acute Rehab - Inpatient Certification Based on my medical assessment, after consideration of the patient's comorbidities, presenting symptoms, or acuity I expect that the services needed warrant INPATIENT care.: Yes I certify that my determination is in accordance with my understanding of Medicare's requirements for reasonable and necessary INPATIENT services [42 CFR 412.3e].: Yes Medical Necessity: Need for IV Antibiotics, Risk of Complication if Not Cared For in Hospital - Plan Summary Plan Summary: WILL REQUIRE DISCHARGE TO ACUTE REHAB. UNSAFE TO RETURN TO HOME. DISCHARGE PLANNING AWARE
[2018-01-09] MEDS: TAMSULOSIN HCL 0.4 MG CAP.SR.24H PO SCH (17:21)
[2018-01-09] MEDS: FLUOXETINE HCL 20 MG CAPSULE PO SCH (17:21)
[2018-01-09] MEDS: CEFAZOLIN SODIUM 2 GM in NORMAL SALINE 100 ML IV SCH (18:26)
[2018-01-09] MEDS: MUPIROCIN 2% OINTMENT 22 GM TP SCH (18:29)
[2018-01-09] MEDS: ASPIRIN 325 MG TABLET PO SCH (21:47)
[2018-01-09] MEDS: DIVALPROEX SODIUM 500 MG TAB.SR.24H PO SCH (21:47)
[2018-01-09] MEDS: SIMVASTATIN 40 MG TABLET PO SCH (21:47)
[2018-01-09] MEDS: TRAZODONE HCL 50 MG TABLET PO SCH (21:47)
[2018-01-09] MEDS: PHENYTOIN SODIUM EXTENDED 100 MG CAPSULE PO SCH (21:47)
[2018-01-10] MEDS: CEFAZOLIN SODIUM 2 GM in NORMAL SALINE 100 ML IV SCH ×3 (02:40→17:08)
[2018-01-10] MEDS: GABAPENTIN 300 MG CAPSULE PO SCH ×3 (06:44→21:49)
[2018-01-10] MEDS: LANSOPRAZOLE 15 MG TAB.RAP.DR PO SCH ×2 (06:45→16:52)
[2018-01-10] MEDS: METOPROLOL TARTRATE 25 MG TABLET PO SCH ×2 (06:45→16:52)
[2018-01-10] MEDS: INSULIN LISPRO 100 UNIT/ML 3 ML VIAL SUBCUT PRN ×3 (06:53→21:49)
--- NOTE | 2018-01-10 07:44 | PDOC PROGRESS REPORT ---
Subjective Progress Note for:: 01/10/18 Reason For Visit: FALL, CHEST PAIN 72-year-old white male with a left bimalleolar ankle fracture and soft tissue damage which precludes consideration of surgical intervention currently. Patient continues to have febrile episodes. Physical Exam Vital Signs: Temp Pulse Resp BP Pulse Ox 37.8 C 80 17 114/53 L 92 01/10/18 00:00 01/10/18 00:00 01/10/18 00:00 01/10/18 00:00 01/10/18 00:00 Intake & Output 01/09/18 01/10/18 01/11/18 06:59 06:59 06:59 Intake Total 2639 1191 Output Total 1220 1500 Balance 1419 -309 Weight 106.1 kg 108.3 kg General appearance: PRESENT: mild distress Head exam: PRESENT: normocephalic Respiratory exam: PRESENT: unlabored Cardiovascular exam: PRESENT: RRR Pulses: PRESENT: +1 pedal pulses bilateral Extremities exam: PRESENT: other - Left lower extremity dressing is taken down. There is a large amount of hemorrhagic bulla posterior to the medial malleolus. There is a residual valgus deformity of the extremity even in the splint. I am concerned about the skin integrity over the medial malleolus. Neurological exam: PRESENT: alert, awake, oriented to person, oriented to place , oriented to time, oriented to situation. ABSENT: motor sensory deficit Psychiatric exam: PRESENT: appropriate affect, normal mood. ABSENT: homicidal ideation, suicidal ideation Skin exam: PRESENT: dry, intact, warm. ABSENT: cyanosis, rash Results Laboratory Results: 01/09/18 05:50 C-Reactive Protein 203.2 H 01/06/18 01/06/18 01/06/18 11:26 11:26 17:30 Creatine Kinase 265 H 711 H CK-MB (CK-2) 1.61 Troponin I 0.023 NT-Pro-B Natriuret Pep 01/06/18 01/06/18 01/06/18 17:30 23:33 23:33 Creatine Kinase 1077 H CK-MB (CK-2) 2.93 2.72 Troponin I 0.025 0.028 NT-Pro-B Natriuret Pep 01/08/18 01/08/18 01/08/18 07:20 07:20 07:20 Creatine Kinase 695 H CK-MB (CK-2) 2.52 Troponin I 0.025 NT-Pro-B Natriuret Pep 2610 H 01/09/18 01/09/18 05:50 05:50 Creatine Kinase 501 H CK-MB (CK-2) Troponin I NT-Pro-B Natriuret Pep 5000 H Impressions: Head CT 01/06/18 00:00 IMPRESSION: No acute findings. Age-appropriate minimal small vessel disease Stable punctate pontine calcification unchanged from 2013 EVIDENCE OF ACUTE STROKE: NO. Chest X-Ray 01/06/18 07:43 IMPRESSION: NO ACUTE RADIOGRAPHIC FINDING IN THE CHEST. Status: Imported from PACS Assessment & Plan - Diagnosis (1) Bimalleolar fracture of left ankle Is this a current diagnosis for this admission?: Yes Plan: I am concerned about the skin integrity as well as the malalignment. Patient probably would be best served with application of an external fixator at this point. I will discuss this with Dr. Chu. Tentatively make the patient n.p.o. after midnight in anticipation of the procedure tomorrow.
[2018-01-10 09:35] LABS: HEMATOCRIT 32.2 % (37.9-51.0); HEMOGLOBIN 11.3 g/dL (13.5-17.0); MEAN CORPUSCULAR HEMOGLOBIN 32.5 pg (27.0-33.4); MEAN CORPUSCULAR HGB CONC 35.3 g/dL (32.0-36.0); MEAN CORPUSCULAR VOLUME 92 fl (80-97); PLATELET COUNT 141 10^3/uL (150-450); RED BLOOD COUNT 3.49 10^6/uL (4.35-5.55); RED CELL DISTRIBUTION WIDTH 12.9 % (11.5-14.0); WHITE BLOOD COUNT 9.5 10^3/uL (4.0-10.5)
[2018-01-10 09:52] LABS: ANION GAP 10 (5-19); BLOOD UREA NITROGEN 13 mg/dL (7-20); CALCIUM 8.3 mg/dL (8.4-10.2); CARBON DIOXIDE 25 mmol/L (22-30); CHLORIDE 100 mmol/L (98-107); CREATINE KINASE 556 U/L (55-170); GLUCOSE 230 mg/dL (75-110); PHOSPHORUS 2.3 mg/dL (2.5-4.5); POTASSIUM 4.2 mmol/L (3.6-5.0); SODIUM 135.3 mmol/L (137-145)
[2018-01-10] MEDS: ENOXAPARIN SODIUM INJ 40 MG/0.4 ML DISP.SYRIN SUBCUT SCH (10:19)
[2018-01-10] MEDS: SULFAMETHOXAZOLE/TRIMETHOPRIM 800-160 MG TABLET PO SCH (10:20)
[2018-01-10] MEDS: MULTIVITAMIN TABLET PO SCH (10:20)
[2018-01-10] MEDS: MEMANTINE HCL 10 MG TABLET PO SCH ×2 (10:20→16:51)
[2018-01-10] MEDS: FLUOXETINE HCL 20 MG CAPSULE PO SCH (16:51)
[2018-01-10] MEDS: TAMSULOSIN HCL 0.4 MG CAP.SR.24H PO SCH (16:52)
[2018-01-10] MEDS: MUPIROCIN 2% OINTMENT 22 GM TP SCH (16:53)
--- NOTE | 2018-01-10 17:15 | PDOC PROGRESS REPORT ---
Subjective Progress Note for:: 01/10/18 Subjective:: PATRICE SHORT JR is a 72 year old male who was admitted for chest pain workup and L ankle fracture following a trip and fall. The patient has a PMH of Congestive Heart Failure, Coronary Artery Disease, Myocardial Infarction - 1994 - cabg x 4 , Hyperlipidema, Hypertension, BPH, absence seizure, DM. The patient was seen this morning on rounds. The patient was resting comfortably in the bed, his is at the bedside. Patient has no complaints, he denies chest pain, shortness of breath, back pain. He denies pain in his LLE , states "I can't feel anything in my legs because of my neuropathy". He is asking when he can have surgery to repair his ankle. Ortho surgery evaluated the patient this morning, complete takedown of LLE splint. Dr. Mclaughlin expressed concern about skin integrity and malalignment, plan for external fixator placement tomorrow. Reason For Visit: FALL, CHEST PAIN Physical Exam Vital Signs: Temp Pulse Resp BP Pulse Ox 99.6 F 75 20 154/65 H 96 01/10/18 12:00 01/10/18 12:00 01/10/18 12:00 01/10/18 12:00 01/10/18 12:00 Intake & Output 01/09/18 01/10/18 01/11/18 06:59 06:59 06:59 Intake Total 2639 1191 Output Total 1220 1500 Balance 1419 -309 Weight 106.1 kg 108.3 kg General appearance: PRESENT: no acute distress Eye exam: PRESENT: conjunctiva pink, PERRLA Mouth exam: PRESENT: moist Teeth exam: PRESENT: poor dentation Neck exam: PRESENT: full ROM Respiratory exam: PRESENT: chest wall tenderness, symmetrical, unlabored Cardiovascular exam: PRESENT: +S1, +S2 Pulses: PRESENT: normal radial pulses, normal dorsalis pedis pul - RLE ONLY. UNABLE TO ASSESS L FOOT Vascular exam: PRESENT: normal capillary refill GI/Abdominal exam: PRESENT: normal bowel sounds, soft. ABSENT: tenderness Rectal exam: PRESENT: deferred Extremities exam: ABSENT: full ROM - Limited ROM of left foot Musculoskeletal exam: ABSENT: ambulatory, full ROM Neurological exam: PRESENT: alert, awake, oriented to person, oriented to place , oriented to time, oriented to situation. ABSENT: normal gait Psychiatric exam: PRESENT: appropriate affect Skin exam: PRESENT: dry, other - Area of erythema and multiple bullae over the left ankle. Currently wrapped in a temporary splint.. ABSENT: intact Results Laboratory Results: 01/10/18 08:51 01/10/18 08:51 01/10/18 01/10/18 01/10/18 07:30 07:30 08:51 WBC Cancelled 9.5 RBC Cancelled 3.49 L Hgb Cancelled 11.3 L Hct Cancelled 32.2 L MCV Cancelled 92 MCH Cancelled 32.5 MCHC Cancelled 35.3 RDW Cancelled 12.9 Plt Count Cancelled 141 L Sodium Cancelled Potassium Cancelled Chloride Cancelled Carbon Dioxide Cancelled Anion Gap Cancelled BUN Cancelled Creatinine Cancelled Est GFR ( Amer) Cancelled Est GFR (Non-Af Amer) Cancelled Glucose Cancelled Calcium Cancelled Phosphorus Cancelled Magnesium Cancelled 01/10/18 08:51 WBC RBC Hgb Hct MCV MCH MCHC RDW Plt Count Sodium 135.3 L Potassium 4.2 Chloride 100 Carbon Dioxide 25 Anion Gap 10 BUN 13 Creatinine 0.88 Est GFR ( Amer) > 60 Est GFR (Non-Af Amer) > 60 Glucose 230 H Calcium 8.3 L Phosphorus 2.3 L Magnesium 2.0 01/06/18 01/06/18 01/06/18 11:26 11:26 17:30 Creatine Kinase 265 H 711 H CK-MB (CK-2) 1.61 Troponin I 0.023 NT-Pro-B Natriuret Pep 01/06/18 01/06/18 01/06/18 17:30 23:33 23:33 Creatine Kinase 1077 H CK-MB (CK-2) 2.93 2.72 Troponin I 0.025 0.028 NT-Pro-B Natriuret Pep 01/08/18 01/08/18 01/08/18 07:20 07:20 07:20 Creatine Kinase 695 H CK-MB (CK-2) 2.52 Troponin I 0.025 NT-Pro-B Natriuret Pep 2610 H 01/09/18 01/09/18 01/10/18 05:50 05:50 08:51 Creatine Kinase 501 H 556 H CK-MB (CK-2) Troponin I NT-Pro-B Natriuret Pep 5000 H 01/10/18 08:51 Creatine Kinase CK-MB (CK-2) 3.69 Troponin I NT-Pro-B Natriuret Pep Impressions: Head CT 01/06/18 00:00 IMPRESSION: No acute findings. Age-appropriate minimal small vessel disease Stable punctate pontine calcification unchanged from 2013 EVIDENCE OF ACUTE STROKE: NO. Chest X-Ray 01/06/18 07:43 IMPRESSION: NO ACUTE RADIOGRAPHIC FINDING IN THE CHEST. Status: Imported from PACS Assessment & Plan - Diagnosis (1) Trimalleolar fracture of left ankle Qualifiers: Encounter type: subsequent encounter Fracture type: closed Fracture healing: with malunion Qualified Code(s): S82.852P - Displaced trimalleolar fracture of left lower leg, subsequent encounter for closed fracture with malunion Is this a current diagnosis for this admission?: Yes Plan: Limb assessment performed today by orthopedic surgeon, Dr. Mclaughlin. Complete takedown of temporary splint at the bedside. Concerned about malalignment. Plan for OR tomorrow for external fixator placement to the LLE Patient initially presented to the emergency department on 01/05 status post trip and fall. Diagnosed with acute trimalleolar fracture with lateral subluxation of the talus, medial malleolus and distal fibular fragment. Dr. Chu, of orthopedics was consulted. In the ED, traction was applied and replacement of dislocated ankle was preformed by Dr. Ryder. Splint was applied and patient was instructed to follow up with Dr. Chu in his office the next day. Fall again at home early the next morning. Returned to ED because patient could not ambulate. Dr. Chu consulted again by ED physician Splint removed, 3 serosanguineous bullae and one ruptured bullae noted to the medial left ankle. No plans for orthopedic surgery until bullae are healed. LLE re-splinted in the ED. Good CAP refill, poor tactile sensation secondary to chronic peripheral neuropathy. Keep LLE elevated when at rest. NWB LLE. Patient denies pain in LLE, tylenol as needed. (2) Fall Qualifiers: Encounter type: subsequent encounter Qualified Code(s): W19.XXXD - Unspecified fall, subsequent encounter Is this a current diagnosis for this admission?: Yes Plan: Patient's reports that the patient got up to use the bathroom using seated rolling walker. When attempting to move from seated walker to toilet, the patient reports he became dizzy and fell to the ground. Denies head trauma. Patient endorses possible LOC, he is amnesic to the event. Head CT normal. Fall precautions Patient will require acute rehab following hospitalization, it is clear that he is unable to navigate his home environment with his injury. Discharge planning aware. (3) Chest pain Qualifiers: Chest pain type: other chest pain Qualified Code(s): R07.89 - Other chest pain; R07.8 - Other chest pain Is this a current diagnosis for this admission?: Yes Plan: Resolved. Patient c/o chest pain upon arrival the ED. EKG shows LBBB (old) no evidence of acute infarction or ischemia. Initial troponin 0.015, peaked at 0.028, no longer trending CXR benign Cardiology consulted. ECHOcardiogram benign Stress test normal, only indicative of old AL Per Cardiology, the patient is cleared for surgery (4) Bullous eruption Is this a current diagnosis for this admission?: Yes Plan: Skin assessment performed today by orthopedic surgeon, Dr. Mclaughlin. Complete takedown of temporary splint at the bedside. Concerned about skin integrity. Plan for OR tomorrow for external fixator placement. 3 serosanguineous bullae and one ruptured bullae noted to the medial left ankle by ER physician. No plans for orthopedic surgery until bullae are healed. Able to visualize small area of L medical ankle today, appears erythematous and +1 pitting edema. Difficult to assess the extent of the erythema and edema without completely removing the splint. Could possibly develop into cellulitis if ruptured bullae become infected. Antibiotic coverage expanded yesterday. Continue cefazolin 2 Gm q8hrs (50mg/kg/d divided into 3 doses, according to the 2014 IDSA guidelines for treatment of SSTI) Wound culture pending (5) Diabetes Qualifiers: Diabetes mellitus type: type 2 Diabetes mellitus termite helper insulin use: with correction use Diabetes mellitus complication status: without complication Qualified Code(s): E11.9 - Type 2 diabetes mellitus without complications; Z79.4 - buttermaker continuous churn (current) use of insulin; Z79.4 - buttermaker continuous churn ( current) use of insulin; Z79.4 - buttermaker continuous churn (current) use of insulin; Z79.4 - buttermaker continuous churn (current) use of insulin Is this a current diagnosis for this admission?: Yes Plan: Patient endorses history of diabetes. Accu-Cheks before meals at bedtime Humalog sliding scale for coverage (6) HTN (hypertension) Qualifiers: Hypertension type: essential hypertension Qualified Code(s): I10 - Essential (primary) hypertension Is this a current diagnosis for this admission?: Yes (7) PTSD (post-traumatic stress disorder) Is this a current diagnosis for this admission?: Yes (8) HLD (hyperlipidemia) Qualifiers: Hyperlipidemia type: unspecified Qualified Code(s): E78.5 - Hyperlipidemia , unspecified Is this a current diagnosis for this admission?: Yes (9) BPH (benign prostatic hyperplasia) Qualifiers: Lower urinary tract symptom presence: symptoms absent Qualified Code(s): N40.0 - Benign prostatic hyperplasia without lower urinary tract symptoms Is this a current diagnosis for this admission?: Yes (10) Absence seizure disorder Qualifiers: Intractability: not intractable Status epilepticus: without status epilepticus Qualified Code(s): G40.A09 - Absence epileptic syndrome, not intractable, without status epilepticus Is this a current diagnosis for this admission?: Yes Plan: Patient endorses history of absence seizure disorder Last seizure was> 15 years ago Continue home regimen of Depakote 1000mg QHS Depakote level 37.7 Plan to slowly increase dose. Initiate 1250mg QHS Will continue to monitor depakote levels (11) Rhabdomyolysis Qualifiers: Rhabdomyolysis type: traumatic Encounter type: initial encounter Qualified Code(s): T79.6XXA - Traumatic ischemia of muscle, initial encounter Is this a current diagnosis for this admission?: Yes Plan: Improving. Concern for Rhabo given rise in CK 243->1077. Now decreased to 550 Unclear etiology at this time Initially treated with IVF, but given the acute rise in his ProBNP, IVF was discontinued. Patient tolerating PO. Will monitor CK levels and continue PO hydration - Time Time Spent with patient: 15-24 minutes Medications reviewed and adjusted accordingly: Yes Anticipated discharge: Acute Rehab - Inpatient Certification Based on my medical assessment, after consideration of the patient's comorbidities, presenting symptoms, or acuity I expect that the services needed warrant INPATIENT care.: Yes I certify that my determination is in accordance with my understanding of Medicare's requirements for reasonable and necessary INPATIENT services [42 CFR 412.3e].: Yes Medical Necessity: Risk of Complication if Not Cared For in Hospital - Plan Summary Plan Summary: OR tomorrow for external fixator placement. The patient will require placement in acute rehab while he recovers. Additionally, he will require outpatient follow-up to orthopedic surgery to schedule repair of his fractured left ankle.
[2018-01-10] MEDS: PHENYTOIN SODIUM EXTENDED 100 MG CAPSULE PO SCH (21:48)
[2018-01-10] MEDS: DIVALPROEX SODIUM 500 MG TAB.SR.24H PO SCH (21:48)
[2018-01-10] MEDS: SIMVASTATIN 40 MG TABLET PO SCH (21:48)
[2018-01-10] MEDS: TRAZODONE HCL 50 MG TABLET PO SCH (21:49)
[2018-01-10] MEDS ORDERED: DIVALPROEX SODIUM 125 MG CAP.SPRINK PO ONE (22:08)
[2018-01-10] MEDS: ASPIRIN 325 MG TABLET PO SCH (22:57)
[2018-01-10] MEDS: DIVALPROEX SODIUM 250 MG TAB.SR.24H PO SCH (23:00)
[2018-01-11] MEDS: CEFAZOLIN SODIUM 2 GM in NORMAL SALINE 100 ML IV SCH ×3 (01:48→20:34)
[2018-01-11] MEDS: GABAPENTIN 300 MG CAPSULE PO SCH ×3 (05:37→23:29)
[2018-01-11] MEDS: METOPROLOL TARTRATE 25 MG TABLET PO SCH ×2 (05:37→16:42)
[2018-01-11] MEDS: LANSOPRAZOLE 15 MG TAB.RAP.DR PO SCH ×2 (05:37→16:39)
[2018-01-11 07:32] LABS: ABSOLUTE EOSINOPHILS # (AUTO) 0.2 10^3/uL (0.0-0.6); ABSOLUTE LYMPHOCYTES (AUTO) 1.8 10^3/uL (0.5-4.7); ABSOLUTE MONOCYTES (AUTO) 1.4 10^3/uL (0.1-1.4); ABSOLUTE NEUT (AUTO) 5.5 10^3/uL (1.7-8.2); BASOPHILS % (AUTO) 0.2 % (0-2); EOSINOPHILS % (AUTO) 1.9 % (0-6); HEMATOCRIT 29.6 % (37.9-51.0); HEMOGLOBIN 10.7 g/dL (13.5-17.0); LYMPHOCYTES % (AUTO) 20.3 % (13-45); MEAN CORPUSCULAR HEMOGLOBIN 33.5 pg (27.0-33.4); MEAN CORPUSCULAR HGB CONC 36.2 g/dL (32.0-36.0); MEAN CORPUSCULAR VOLUME 93 fl (80-97); MONOCYTES % (AUTO) 15.4 % (3-13); PLATELET COUNT 136 10^3/uL (150-450); RED CELL DISTRIBUTION WIDTH 13.3 % (11.5-14.0); SEGMENTED NEUTROPHILS % (AUTO) 62.2 % (42-78); TOTAL CELLS COUNTED % (AUTO) 100 %; WHITE BLOOD COUNT 8.9 10^3/uL (4.0-10.5)
[2018-01-11 07:39] LABS: INTERNATIONAL RATION (INR) 0.99; PROTHROMBIN TIME 13.6 SEC (11.4-15.4)
[2018-01-11 07:52] LABS: ALANINE AMINOTRANSFERASE 27 U/L (21-72); ALBUMIN 2.9 g/dL (3.5-5.0); ALKALINE PHOSPHATASE 51 U/L (38-126); ANION GAP 11 (5-19); ASPARTATE AMINO TRANSFERASE 40 U/L (17-59); BILIRUBIN,DIRECT 0.3 mg/dL (0.0-0.4); BILIRUBIN,TOTAL 0.5 mg/dL (0.2-1.3); BLOOD UREA NITROGEN 12 mg/dL (7-20); CARBON DIOXIDE 23 mmol/L (22-30); CHLORIDE 100 mmol/L (98-107); CREATINE KINASE 410 U/L (55-170); GLUCOSE 240 mg/dL (75-110); POTASSIUM 3.9 mmol/L (3.6-5.0); SODIUM 134.4 mmol/L (137-145); TOTAL PROTEIN 5.6 g/dL (6.3-8.2)
[2018-01-11] MEDS: ENOXAPARIN SODIUM INJ 40 MG/0.4 ML DISP.SYRIN SUBCUT SCH (08:31)
[2018-01-11] MEDS: MULTIVITAMIN TABLET PO SCH (08:43)
[2018-01-11] MEDS: MEMANTINE HCL 10 MG TABLET PO SCH ×2 (08:43→16:41)
[2018-01-11] MEDS ORDERED: LIDOCAINE 2% INJ-PF (20 MG/ML) 10 ML AMPUL ONE (11:05)
[2018-01-11] MEDS ORDERED: DEXAMETHASONE SOD PHOSPHATE INJ 4 MG/1 ML VIAL ONE (11:06)
[2018-01-11] MEDS ORDERED: ONDANSETRON HCL INJ/PF 4 MG/2 ML SDV ONE (11:06)
[2018-01-11] MEDS ORDERED: FENTANYL CITRATE INJ/PF 100 MCG/2 ML AMPUL ONE (11:06)
[2018-01-11] MEDS ORDERED: MIDAZOLAM 2 MG/2 ML INJ ONE (11:06)
[2018-01-11] MEDS ORDERED: PROPOFOL INJ 200 MG/20 ML VIAL IV ONE (11:07)
[2018-01-11] MEDS ORDERED: TETRACAINE HCL/PF 20MG/2ML AMPULE (SPINAL) ONE (11:07)
[2018-01-11] MEDS ORDERED: CEFAZOLIN INJ 1 GM VIAL ONE (12:48)
[2018-01-11] MEDS ORDERED: MEPERIDINE HCL/PF INJ 25 MG/1 ML DISP.SYRIN IV PRN (12:56)
[2018-01-11] MEDS ORDERED: PROMETHAZINE HCL INJ 25 MG/1 ML VIAL IV PRN ×2 (12:56)
[2018-01-11] MEDS ORDERED: MORPHINE SULFATE 10 MG/ML INJ IV PRN ×2 (12:56→14:50)
[2018-01-11] MEDS ORDERED: DIPHENHYDRAMINE HCL 50 MG/ML VIAL IV PRN (12:56)
[2018-01-11] MEDS ORDERED: ONDANSETRON HCL INJ/PF 4 MG/2 ML SDV IV PRN (12:56)
[2018-01-11] MEDS ORDERED: FENTANYL CITRATE INJ/PF 100 MCG/2 ML AMPUL IV PRN ×3 (12:56)
--- NOTE | 2018-01-11 13:43 | Operative Report ---
Operative Report DATE OF SURGERY: 01/11/18 PREOPERATIVE DIAGNOSIS: Left ankle fracture dislocation with compromised soft tissue envelope OPERATION: Closed reduction and application of external fixator left ankle fracture SURGEON: KUN OAKLEY ANESTHESIA: Spinal ESTIMATED BLOOD LOSS: Minimal PROCEDURE: With the patient supine on the table the left lower extremities prepped and draped in sterile fashion. A [place] external fixator system and a delta frame configuration is applied to the left lower extremity. Once the frame is in place with 3 transfixion screws proximally one trans-calcaneal he and one in the first metatarsal, a closed reduction was performed under fluoroscopic guidance. The frame was locked down. A sterile compressive dressings applied and the patient's return to the PACU in satisfactory condition.
--- NOTE | 2018-01-11 14:43 | RADIOLOGY REPORT (SQ) ---
EXAM DESCRIPTION: NO CHG FLUORO; TIBIA FIBULA LEFT COMPLETED DATE/TIME: 01/11/2018 2:33 pm REASON FOR STUDY: EXTERNAL FIXATOR PLCMT ASST WITH FLUORO IN OR COMPARISON: None. FLUOROSCOPY TIME: 0.3 minutes. 5 images saved to PACS. TECHNIQUE: Intra-operative images acquired during surgical procedure to evaluate progress. NUMBER OF IMAGES: 5 images. LIMITATIONS: None. FINDINGS: Images of the tibia and fibula acquired during placement of external hardware. IMPRESSION: IMAGE(S) OBTAINED DURING PROCEDURE. COMMENT: Quality ID 145: Final reports for procedures using fluoroscopy that document radiation exp osure indices, or exposure time and number of fluorographic images (if radiation exposure indices are not available) Please consult full operative report of the attending physician for description of the procedure. TECHNICAL DOCUMENTATION: JOB ID: [id number] [employer]- All Rights Reserved Reading location - IP/workstation name: [email or web address]
--- NOTE | 2018-01-11 14:43 | RADIOLOGY REPORT (SQ) ---
EXAM DESCRIPTION: NO CHG FLUORO; TIBIA FIBULA LEFT COMPLETED DATE/TIME: 01/11/2018 2:33 pm REASON FOR STUDY: EXTERNAL FIXATOR PLCMT ASST WITH FLUORO IN OR COMPARISON: None. FLUOROSCOPY TIME: 0.3 minutes. 5 images saved to PACS. TECHNIQUE: Intra-operative images acquired during surgical procedure to evaluate progress. NUMBER OF IMAGES: 5 images. LIMITATIONS: None. FINDINGS: Images of the tibia and fibula acquired during placement of external hardware. IMPRESSION: IMAGE(S) OBTAINED DURING PROCEDURE. COMMENT: Quality ID [id number]: Final reports for procedures using fluoroscopy that document radiation exp osure indices, or exposure time and number of fluorographic images (if radiation exposure indices are not available) Please consult full operative report of the attending physician for description of the procedure. TECHNICAL DOCUMENTATION: JOB ID: [id number] [employer]- All Rights Reserved Reading location - IP/workstation name: [email or web address]
[2018-01-11] MEDS ORDERED: RINGERS SOLUTION,LACTATED 1,000 ML IV PRN ×2 (14:49)
[2018-01-11] MEDS ORDERED: ONDANSETRON 4 MG TAB.RAPDIS SL PRN (14:50)
[2018-01-11] MEDS: TAMSULOSIN HCL 0.4 MG CAP.SR.24H PO SCH (16:38)
[2018-01-11] MEDS: FLUOXETINE HCL 20 MG CAPSULE PO SCH (16:39)
[2018-01-11] MEDS: INSULIN LISPRO 100 UNIT/ML 3 ML VIAL SUBCUT PRN (16:42)
[2018-01-11] MEDS: MUPIROCIN 2% OINTMENT 22 GM TP SCH (17:38)
[2018-01-11] MEDS ORDERED: HALOPERIDOL 2 MG TABLET PO PRN (21:32)
--- NOTE | 2018-01-11 21:45 | PDOC PROGRESS REPORT ---
<LORI RODRIGUEZ - Last Filed: 01/11/18 20:57> Subjective Progress Note for:: 01/11/18 Subjective:: PATRICE SHORT JR is a 72 year old male who was admitted for chest pain workup and L ankle fracture following a trip and fall. The patient has a PMH of Congestive Heart Failure, Coronary Artery Disease, Myocardial Infarction - 1994 - cabg x 4 , Hyperlipidema, Hypertension, BPH, absence seizure, DM. The patient was seen this evening on rounds following his ex-fix placement. L DP pulses obtained with doppler, unable to assess L PT pulses due to post-op dressing. The patient denies pain to his LLE, no other complaints. The patient states he woke up last night very confused, and he 'did not know where he was.' The executive producer nursing staff reports the patient will sometimes attempt to get OOB without calling staff for help, or repeatedly tries to pull off rn cardiac. These events of confusion seem to happen when the patient's is not in the room. Reason For Visit: FALL, CHEST PAIN Physical Exam Vital Signs: Temp Pulse Resp BP Pulse Ox 98.4 F 85 19 150/67 H 92 01/11/18 15:00 01/11/18 15:00 01/11/18 15:00 01/11/18 15:00 01/11/18 15:00 Intake & Output 01/10/18 01/11/18 01/12/18 06:59 06:59 06:59 Intake Total 1191 1668 2200 Output Total 1500 1325 710 Balance -379 175 8125 Weight 108.3 kg 102.7 kg General appearance: PRESENT: no acute distress Head exam: PRESENT: atraumatic Eye exam: PRESENT: conjunctiva pink, PERRLA Mouth exam: PRESENT: moist Neck exam: PRESENT: full ROM Respiratory exam: PRESENT: clear to auscultation ramon, symmetrical, unlabored Cardiovascular exam: PRESENT: +S1, +S2 Pulses: PRESENT: normal radial pulses, normal dorsalis pedis pul - DP/PT pulses in R foot. Doppler DP pulses in L foot Vascular exam: PRESENT: normal capillary refill GI/Abdominal exam: PRESENT: normal bowel sounds, soft. ABSENT: tenderness Rectal exam: PRESENT: deferred Extremities exam: ABSENT: full ROM, joint swelling Musculoskeletal exam: ABSENT: ambulatory - NWB LLE, full ROM Neurological exam: PRESENT: alert, awake, oriented to person, oriented to place , oriented to time, oriented to situation Psychiatric exam: PRESENT: appropriate affect Skin exam: PRESENT: dry, intact Results Laboratory Results: 01/11/18 07:15 01/11/18 07:15 01/11/18 01/11/18 07:15 07:15 WBC 8.9 RBC 3.20 L Hgb 10.7 L Hct 29.6 L MCV 93 MCH 33.5 H MCHC 36.2 H RDW 13.3 Plt Count 136 L Seg Neutrophils % 62.2 Lymphocytes % 20.3 Monocytes % 15.4 H Eosinophils % 1.9 Basophils % 0.2 Absolute Neutrophils 5.5 Absolute Lymphocytes 1.8 Absolute Monocytes 1.4 Absolute Eosinophils 0.2 Absolute Basophils 0.0 Sodium 134.4 L Potassium 3.9 Chloride 100 Carbon Dioxide 23 Anion Gap 11 BUN 12 Creatinine 0.76 Est GFR ( Amer) > 60 Est GFR (Non-Af Amer) > 60 Glucose 240 H Calcium 8.0 L Total Bilirubin 0.5 AST 40 ALT 27 Alkaline Phosphatase 51 Total Protein 5.6 L Albumin 2.9 L 01/06/18 01/06/18 01/06/18 11:26 11:26 17:30 Creatine Kinase 265 H 711 H CK-MB (CK-2) 1.61 Troponin I 0.023 NT-Pro-B Natriuret Pep 01/06/18 01/06/18 01/06/18 17:30 23:33 23:33 Creatine Kinase 1077 H CK-MB (CK-2) 2.93 2.72 Troponin I 0.025 0.028 NT-Pro-B Natriuret Pep 01/08/18 01/08/18 01/08/18 07:20 07:20 07:20 Creatine Kinase 695 H CK-MB (CK-2) 2.52 Troponin I 0.025 NT-Pro-B Natriuret Pep 2610 H 01/09/18 01/09/18 01/10/18 05:50 05:50 08:51 Creatine Kinase 501 H 556 H CK-MB (CK-2) Troponin I NT-Pro-B Natriuret Pep 5000 H 01/10/18 01/11/18 01/11/18 08:51 07:15 07:15 Creatine Kinase 410 H CK-MB (CK-2) 3.69 Troponin I NT-Pro-B Natriuret Pep 5390 H Impressions: Head CT 01/06/18 00:00 IMPRESSION: No acute findings. Age-appropriate minimal small vessel disease Stable punctate pontine calcification unchanged from 2013 EVIDENCE OF ACUTE STROKE: NO. Chest X-Ray 01/06/18 07:43 IMPRESSION: NO ACUTE RADIOGRAPHIC FINDING IN THE CHEST. Fluoroscopy 01/11/18 00:00 IMPRESSION: IMAGE(S) OBTAINED DURING PROCEDURE. Tibia/Fibula X-Ray 01/11/18 00:00 IMPRESSION: IMAGE(S) OBTAINED DURING PROCEDURE. Status: Imported from PACS Assessment & Plan - Diagnosis (1) Trimalleolar fracture of left ankle QualifierTitle: Encounter type: subsequent encounter Fracture type: closed Fracture healing: with malunion Qualified Code(s): S82.852P - Displaced trimalleolar fracture of left lower leg, subsequent encounter for closed fracture with malunion Is this a current diagnosis for this admission?: Yes Plan: External fixator placement today to the LLE by Dr. Mclaughlin. Patient initially presented to the emergency department on 01/05 status post trip and fall. Diagnosed with acute trimalleolar fracture with lateral subluxation of the talus, medial malleolus and distal fibular fragment. Dr. Chu, of orthopedics was consulted. In the ED, traction was applied and replacement of dislocated ankle was preformed by Dr. Ryder. Splint was applied and patient was instructed to follow up with Dr. Chu in his office the next day. Fall again at home early the next morning. Returned to ED because patient could not ambulate. Dr. Chu consulted again by ED physician Splint removed, 3 serosanguineous bullae and one ruptured bullae noted to the medial left ankle. No plans for orthopedic surgery until bullae are healed. LLE re-splinted in the ED. Good CAP refill, poor tactile sensation secondary to chronic peripheral neuropathy. Keep LLE elevated when at rest. NWB LLE. External fixator applied today for better ankle alignment as well as to allow for better wound healing Patient denies pain in LLE, tylenol as needed. Patient can transfer to acute rehab once cleared by ortho. (2) Fall QualifierTitle: Encounter type: subsequent encounter Qualified Code(s): W19.XXXD - Unspecified fall, subsequent encounter Is this a current diagnosis for this admission?: Yes Plan: Patient's reports that the patient got up to use the bathroom using seated rolling walker. When attempting to move from seated walker to toilet, the patient reports he became dizzy and fell to the ground. Denies head trauma. Patient endorses possible LOC, he is amnesic to the event. Head CT normal. Fall precautions Patient will require acute rehab following hospitalization, it is clear that he is unable to navigate his home environment with his injury. NWB on LLE per Dr. Mclaughlin Discharge planning aware. (3) Chest pain QualifierTitle: Chest pain type: other chest pain Qualified Code(s): R07.89 - Other chest pain; R07.8 - Other chest pain Is this a current diagnosis for this admission?: Yes Plan: Resolved. Patient c/o chest pain upon arrival the ED. EKG shows LBBB (old) no evidence of acute infarction or ischemia. Initial troponin 0.015, peaked at 0.028, no longer trending CXR benign Cardiology consulted. ECHOcardiogram benign Stress test normal, only indicative of old CT Per Cardiology, the patient is cleared for surgery (4) Bullous eruption Is this a current diagnosis for this admission?: Yes Plan: Skin assessment performed today by orthopedic surgeon, Dr. Mclaughlin. Complete takedown of temporary splint and placement of external fixator. 3 serosanguineous bullae and one ruptured bullae noted to the medial left ankle by ER physician. No plans for orthopedic surgery until bullae are healed. Able to visualize small area of L dorsal foot and small area of L medial ankle, appears erythematous and +1 pitting edema. Difficult to assess the extent of the erythema and edema. Could possibly develop into cellulitis if ruptured bullae become infected. Continue cefazolin 2 Gm q8hrs (50mg/kg/d divided into 3 doses, according to the 2014 IDSA guidelines for treatment of SSTI) Wound culture pending (5) Diabetes QualifierTitle: Diabetes mellitus type: type 2 Diabetes mellitus extermination inspector insulin use: with extermination inspector use Diabetes mellitus complication status: without complication Qualified Code(s): E11.9 - Type 2 diabetes mellitus without complications; Z79.4 - termite exterminator helper (current) use of insulin; Z79.4 - termite exterminator helper (current) use of insulin; Z79.4 - correction (current) use of insulin; Z79.4 - correction (current) use of insulin Is this a current diagnosis for this admission?: Yes Plan: Patient endorses history of diabetes. Accu-Cheks before meals at bedtime Humalog sliding scale for coverage (6) HTN (hypertension) QualifierTitle: Hypertension type: essential hypertension Qualified Code( s): I10 - Essential (primary) hypertension Is this a current diagnosis for this admission?: Yes Plan: Patient endorses history of hypertension. The patient has remained relatively NORMOtensive since admission Restart home medications. (7) PTSD (post-traumatic stress disorder) Is this a current diagnosis for this admission?: Yes Plan: The patient endorses a history of PTSD. We will restart home medications (8) HLD (hyperlipidemia) QualifierTitle: Hyperlipidemia type: unspecified Qualified Code(s): E78.5 - Hyperlipidemia, unspecified Is this a current diagnosis for this admission?: Yes Plan: Patient endorses history of hyperlipidemia. Restart home dose statin therapy (9) BPH (benign prostatic hyperplasia) QualifierTitle: Lower urinary tract symptom presence: symptoms absent Qualified Code(s): N40.0 - Benign prostatic hyperplasia without lower urinary tract symptoms Is this a current diagnosis for this admission?: Yes Plan: Patient endorses recent diagnosis of BPH. Restart home dose tamsulosin (10) Absence seizure disorder QualifierTitle: Intractability: not intractable Status epilepticus: without status epilepticus Qualified Code(s): G40.A09 - Absence epileptic syndrome, not intractable, without status epilepticus Is this a current diagnosis for this admission?: Yes Plan: Patient endorses history of absence seizure disorder Last seizure was> 15 years ago Continue home regimen of Depakote 1000mg QHS Depakote level 37.7 Plan to slowly increase dose. Initiate 1250mg QHS Will continue to monitor depakote levels (11) Rhabdomyolysis QualifierTitle: Rhabdomyolysis type: traumatic Encounter type: initial encounter Qualified Code(s): T79.6XXA - Traumatic ischemia of muscle, initial encounter Is this a current diagnosis for this admission?: Yes Plan: Improving. Concern for Rhabo given rise in CK 243->1077. Now decreased to 410 Unclear etiology at this time Treated with IVF, will continue overnight following ex-fix placement. Can d/c tomorrow AM. Will monitor CK levels and continue PO hydration (12) Sundowning Is this a current diagnosis for this admission?: Yes Plan: The patient endorses periods of confusion overnight. Nursing staff reports the patient oftentimes will remove help desk administrator at night, or attempt to get OOB. Encourage day/night orientation Allow family at bedside when possible PRN PO haldol for sundowning related agitation - Time Time Spent with patient: 15-24 minutes Medications reviewed and adjusted accordingly: Yes Anticipated discharge: Acute Rehab - Inpatient Certification Based on my medical assessment, after consideration of the patient's comorbidities, presenting symptoms, or acuity I expect that the services needed warrant INPATIENT care.: Yes I certify that my determination is in accordance with my understanding of Medicare's requirements for reasonable and necessary INPATIENT services [42 CFR 412.3e].: Yes Medical Necessity: Need for IV Antibiotics - Plan Summary Plan Summary: Plan for transfer to acute rehab when cleared by Ortho <NOEMI MATHEWS - Last Filed: 01/13/18 15:50> Subjective Reason For Visit: FALL, CHEST PAIN Physical Exam Vital Signs: Temp Pulse Resp BP Pulse Ox 99.2 F 87 18 168/65 H 97 01/13/18 08:00 01/13/18 08:00 01/13/18 08:00 01/13/18 08:00 01/13/18 08:00 Intake & Output 01/12/18 01/13/18 01/14/18 06:59 06:59 06:59 Intake Total 3920 1726 Output Total 1010 1050 Balance 2910 676 Weight 101.3 kg 108.5 kg Results Laboratory Results: 01/13/18 05:45 01/13/18 05:45 01/13/18 01/13/18 05:45 05:45 WBC 7.6 RBC 3.29 L Hgb 10.7 L Hct 30.7 L MCV 93 MCH 32.6 MCHC 34.9 RDW 13.4 Plt Count 167 Sodium 136.9 L Potassium 3.9 Chloride 101 Carbon Dioxide 26 Anion Gap 10 BUN 14 Creatinine 0.70 Est GFR ( Amer) > 60 Est GFR (Non-Af Amer) > 60 Glucose 245 H Calcium 7.9 L 01/09/18 09:30 Ankle - Sore Gram Stain - Final 01/09/18 09:30 Ankle - Sore Wound Culture - Final NO GROWTH 3 DAYS 01/06/18 01/06/18 01/06/18 11:26 11:26 17:30 Creatine Kinase 265 H 711 H CK-MB (CK-2) 1.61 Troponin I 0.023 NT-Pro-B Natriuret Pep 01/06/18 01/06/18 01/06/18 17:30 23:33 23:33 Creatine Kinase 1077 H CK-MB (CK-2) 2.93 2.72 Troponin I 0.025 0.028 NT-Pro-B Natriuret Pep 01/08/18 01/08/18 01/08/18 07:20 07:20 07:20 Creatine Kinase 695 H CK-MB (CK-2) 2.52 Troponin I 0.025 NT-Pro-B Natriuret Pep 2610 H 01/09/18 01/09/18 01/10/18 05:50 05:50 08:51 Creatine Kinase 501 H 556 H CK-MB (CK-2) Troponin I NT-Pro-B Natriuret Pep 5000 H 01/10/18 01/11/18 01/11/18 08:51 07:15 07:15 Creatine Kinase 410 H CK-MB (CK-2) 3.69 Troponin I NT-Pro-B Natriuret Pep 5390 H 01/13/18 01/13/18 05:45 05:45 Creatine Kinase 242 H CK-MB (CK-2) Troponin I NT-Pro-B Natriuret Pep 3040 H Impressions: Head CT 01/06/18 00:00 IMPRESSION: No acute findings. Age-appropriate minimal small vessel disease Stable punctate pontine calcification unchanged from 2014 EVIDENCE OF ACUTE STROKE: NO. Chest X-Ray 01/06/18 07:43 IMPRESSION: NO ACUTE RADIOGRAPHIC FINDING IN THE CHEST. Fluoroscopy 01/11/18 00:00 IMPRESSION: IMAGE(S) OBTAINED DURING PROCEDURE. Tibia/Fibula X-Ray 01/11/18 00:00 IMPRESSION: IMAGE(S) OBTAINED DURING PROCEDURE. Assessment & Plan - Plan Summary Plan Summary: Co signing note for Lori Cueto NP
[2018-01-11] MEDS: ASPIRIN 325 MG TABLET PO SCH (23:28)
[2018-01-11] MEDS: PHENYTOIN SODIUM EXTENDED 100 MG CAPSULE PO SCH (23:28)
[2018-01-11] MEDS: TRAZODONE HCL 50 MG TABLET PO SCH (23:28)
[2018-01-11] MEDS: DIVALPROEX SODIUM 500 MG TAB.SR.24H PO SCH (23:29)
[2018-01-11] MEDS: SIMVASTATIN 40 MG TABLET PO SCH (23:29)
[2018-01-11] MEDS: DIVALPROEX SODIUM 250 MG TAB.SR.24H PO SCH (23:29)
[2018-01-12] MEDS: CEFAZOLIN SODIUM 2 GM in NORMAL SALINE 100 ML IV SCH ×3 (02:21→17:25)
[2018-01-12] MEDS: GABAPENTIN 300 MG CAPSULE PO SCH ×3 (05:41→21:36)
[2018-01-12] MEDS: METOPROLOL TARTRATE 25 MG TABLET PO SCH ×2 (05:41→16:39)
[2018-01-12] MEDS: LANSOPRAZOLE 15 MG TAB.RAP.DR PO SCH ×2 (05:42→16:38)
[2018-01-12 06:24] LABS: HEMATOCRIT 29.7 % (37.9-51.0); HEMOGLOBIN 10.5 g/dL (13.5-17.0); MEAN CORPUSCULAR HEMOGLOBIN 32.7 pg (27.0-33.4); MEAN CORPUSCULAR HGB CONC 35.2 g/dL (32.0-36.0); MEAN CORPUSCULAR VOLUME 93 fl (80-97); PLATELET COUNT 143 10^3/uL (150-450); RED BLOOD COUNT 3.19 10^6/uL (4.35-5.55); RED CELL DISTRIBUTION WIDTH 13.2 % (11.5-14.0); WHITE BLOOD COUNT 8.1 10^3/uL (4.0-10.5)
--- NOTE | 2018-01-12 06:33 | PDOC PROGRESS REPORT ---
Subjective Progress Note for:: 01/12/18 Reason For Visit: FALL, CHEST PAIN 72-year-old white male with a left trimalleolar ankle fracture now postop day 1 from application of an external fixator. No postoperative significant advance of them persistently elevated blood glucose Physical Exam Vital Signs: Temp Pulse Resp BP Pulse Ox 36.9 C 75 19 122/62 95 01/12/18 00:44 01/12/18 00:44 01/12/18 00:44 01/12/18 00:44 01/12/18 00:44 Intake & Output 01/10/18 01/11/18 01/12/18 06:59 06:59 06:59 Intake Total 1191 1668 3920 Output Total 1500 1325 1010 Balance -438 901 5975 Weight 108.3 kg 102.7 kg 151.3 kg General appearance: PRESENT: no acute distress, mild distress Head exam: PRESENT: normocephalic Respiratory exam: PRESENT: unlabored Cardiovascular exam: PRESENT: RRR Vascular exam: PRESENT: normal capillary refill GI/Abdominal exam: PRESENT: soft Rectal exam: PRESENT: deferred Musculoskeletal exam: PRESENT: other - Left lower extremity external fixator and dressing are in place. There is brisk capillary refill to the digits. Neurological exam: PRESENT: alert, awake Results Laboratory Results: 01/12/18 05:40 01/11/18 01/11/18 01/12/18 07:15 07:15 05:40 WBC 8.9 8.1 RBC 3.20 L 3.19 L Hgb 10.7 L 10.5 L Hct 29.6 L 29.7 L MCV 93 93 MCH 33.5 H 32.7 MCHC 36.2 H 35.2 RDW 13.3 13.2 Plt Count 136 L 143 L Seg Neutrophils % 62.2 Lymphocytes % 20.3 Monocytes % 15.4 H Eosinophils % 1.9 Basophils % 0.2 Absolute Neutrophils 5.5 Absolute Lymphocytes 1.8 Absolute Monocytes 1.4 Absolute Eosinophils 0.2 Absolute Basophils 0.0 Sodium 134.4 L Potassium 3.9 Chloride 100 Carbon Dioxide 23 Anion Gap 11 BUN 12 Creatinine 0.76 Est GFR ( Amer) > 60 Est GFR (Non-Af Amer) > 60 Glucose 240 H Calcium 8.0 L Total Bilirubin 0.5 AST 40 ALT 27 Alkaline Phosphatase 51 Total Protein 5.6 L Albumin 2.9 L 05/30/18 05/30/18 05/30/18 11:26 11:26 17:30 Creatine Kinase 265 H 711 H CK-MB (CK-2) 1.61 Troponin I 0.023 NT-Pro-B Natriuret Pep 01/06/18 01/06/18 01/06/18 17:30 23:33 23:33 Creatine Kinase 1077 H CK-MB (CK-2) 2.93 2.72 Troponin I 0.025 0.028 NT-Pro-B Natriuret Pep 01/08/18 01/08/18 01/08/18 07:20 07:20 07:20 Creatine Kinase 695 H CK-MB (CK-2) 2.52 Troponin I 0.025 NT-Pro-B Natriuret Pep 2610 H 01/09/18 01/09/18 01/10/18 05:50 05:50 08:51 Creatine Kinase 501 H 556 H CK-MB (CK-2) Troponin I NT-Pro-B Natriuret Pep 5000 H 01/10/18 01/11/18 01/11/18 08:51 07:15 07:15 Creatine Kinase 410 H CK-MB (CK-2) 3.69 Troponin I NT-Pro-B Natriuret Pep 5390 H Impressions: Head CT 01/06/18 00:00 IMPRESSION: No acute findings. Age-appropriate minimal small vessel disease Stable punctate pontine calcification unchanged from 2013 EVIDENCE OF ACUTE STROKE: NO. Chest X-Ray 01/06/18 07:43 IMPRESSION: NO ACUTE RADIOGRAPHIC FINDING IN THE CHEST. Fluoroscopy 01/11/18 00:00 IMPRESSION: IMAGE(S) OBTAINED DURING PROCEDURE. Tibia/Fibula X-Ray 01/11/18 00:00 IMPRESSION: IMAGE(S) OBTAINED DURING PROCEDURE. Status: Imported from PACS Assessment & Plan - Diagnosis (1) Bimalleolar fracture of left ankle Is this a current diagnosis for this admission?: Yes Plan: Status post application of external fixator that can either be temporary until the skin heals enough to allow a internal fixation were permanent for ultimate treatment of the ankle fracture. Patient be out of bed to chair with physical therapy today. - Time Time Spent with patient: 15-24 minutes Anticipated discharge: SNF Within: Other
[2018-01-12 06:44] LABS: ANION GAP 10 (5-19); BLOOD UREA NITROGEN 16 mg/dL (7-20); CARBON DIOXIDE 25 mmol/L (22-30); CHLORIDE 102 mmol/L (98-107); GLUCOSE 206 mg/dL (75-110); SODIUM 136.6 mmol/L (137-145)
[2018-01-12] MEDS: ENOXAPARIN SODIUM INJ 40 MG/0.4 ML DISP.SYRIN SUBCUT SCH (09:19)
[2018-01-12] MEDS: MULTIVITAMIN TABLET PO SCH (09:24)
[2018-01-12] MEDS: MEMANTINE HCL 10 MG TABLET PO SCH ×2 (09:24→16:38)
[2018-01-12] MEDS ORDERED: POLYETHYLENE GLYCOL 3350 POWDER 17 GM/1 PACKET PO PRN (10:38)
[2018-01-12] MEDS: INSULIN LISPRO 100 UNIT/ML 3 ML VIAL SUBCUT PRN ×2 (11:24→16:38)
[2018-01-12] MEDS: MUPIROCIN 2% OINTMENT 22 GM TP SCH (16:14)
[2018-01-12] MEDS: SENNOSIDES/DOCUSATE 8.6-50 MG 1 EACH TABLET PO SCH (16:14)
[2018-01-12] MEDS: TAMSULOSIN HCL 0.4 MG CAP.SR.24H PO SCH (16:38)
[2018-01-12] MEDS: FLUOXETINE HCL 20 MG CAPSULE PO SCH (16:38)
[2018-01-12] MEDS ORDERED: NORMAL SALINE 1000 ML 1,000 ML IV PRN (16:52)
--- NOTE | 2018-01-12 16:55 | PDOC PROGRESS REPORT ---
<JUDIE RAMOS - Last Filed: 01/12/18 16:38> Subjective Progress Note for:: 01/12/18 Subjective:: The patient is a 72-year-old male with past medical history significant for CHF , CAD, MN with CABG 4, hyperlipidemia, hypertension, BPH, absence seizure, diabetes, and dementia who was admitted for a chest pain workup and left ankle fracture following mechanical fall at home. The patient is now status post external fixation by orthopedics. The patient is seen on morning rounds with his present. He is found resting in bed comfortably on supplemental oxygen at 2 L/min. The patient is alert and oriented 3, but defers to his for answering of most questions. His only complaint at present is that he did not sleep well last night due to frequent interruptions by nursing staff. He denies fever, chills, headache, chest pain, palpitations, dyspnea, abdominal pain, nausea, vomiting, diarrhea and constipation. However, the patient's reports that he is constipated as he has been trying to have a bowel movement unsuccessfully for most of the morning. They are aware that orthopedics will be determining his readiness for discharge to SNF. They have no questions or concerns for me at this time. Reason For Visit: FALL, CHEST PAIN Physical Exam Vital Signs: Temp Pulse Resp BP Pulse Ox 98.7 F 75 18 145/68 H 93 01/12/18 12:04 01/12/18 12:04 01/12/18 12:04 01/12/18 12:04 01/12/18 12:04 Intake & Output 01/11/18 01/12/18 01/13/18 06:59 06:59 06:59 Intake Total 1668 3920 Output Total 1325 1010 Balance 343 2910 Weight 102.7 kg 151.3 kg General appearance: PRESENT: no acute distress, morbidly obese, well-developed, well-nourished Head exam: PRESENT: atraumatic, normocephalic Eye exam: PRESENT: conjunctiva pink, EOMI, PERRLA. ABSENT: scleral icterus Ear exam: PRESENT: normal external ear exam Mouth exam: PRESENT: moist, tongue midline Neck exam: ABSENT: carotid bruit, JVD, lymphadenopathy, thyromegaly Respiratory exam: PRESENT: clear to auscultation ramon, symmetrical, unlabored. ABSENT: rales, rhonchi, wheezes Cardiovascular exam: PRESENT: RRR, +S1, +S2. ABSENT: diastolic murmur, rubs, systolic murmur Pulses: PRESENT: normal dorsalis pedis pul - Right foot, other - Unable to palpate pedal pulse to leftt foot secondary to bulky dressing and external fixation; brisk capillary refill to right great toe Vascular exam: PRESENT: normal capillary refill GI/Abdominal exam: PRESENT: normal bowel sounds, soft. ABSENT: distended, guarding, mass, organolmegaly, rebound, tenderness Rectal exam: PRESENT: deferred Extremities exam: PRESENT: other - Bulky dressing with external fixation right foot. ABSENT: calf tenderness, clubbing, pedal edema, tenderness Neurological exam: PRESENT: alert, awake, oriented to person, oriented to place , oriented to time, oriented to situation, CN II-XII grossly intact. ABSENT: motor sensory deficit Psychiatric exam: PRESENT: appropriate affect, normal mood. ABSENT: homicidal ideation, suicidal ideation Skin exam: PRESENT: dry, intact, warm. ABSENT: cyanosis, rash Results Laboratory Results: 01/12/18 05:40 01/12/18 05:40 01/12/18 01/12/18 05:40 05:40 WBC 8.1 RBC 3.19 L Hgb 10.5 L Hct 29.7 L MCV 93 MCH 32.7 MCHC 35.2 RDW 13.2 Plt Count 143 L Sodium 136.6 L Potassium 4.0 Chloride 102 Carbon Dioxide 25 Anion Gap 10 BUN 16 Creatinine 0.74 Est GFR ( Amer) > 60 Est GFR (Non-Af Amer) > 60 Glucose 206 H Calcium 8.0 L 01/09/18 09:30 Ankle - Sore Gram Stain - Final 01/09/18 09:30 Ankle - Sore Wound Culture - Final NO GROWTH 3 DAYS 01/06/18 01/06/18 01/06/18 11:26 11:26 17:30 Creatine Kinase 265 H 711 H CK-MB (CK-2) 1.61 Troponin I 0.023 NT-Pro-B Natriuret Pep 01/06/18 01/06/18 01/06/18 17:30 23:33 23:33 Creatine Kinase 1077 H CK-MB (CK-2) 2.93 2.72 Troponin I 0.025 0.028 NT-Pro-B Natriuret Pep 01/08/18 01/08/18 01/08/18 07:20 07:20 07:20 Creatine Kinase 695 H CK-MB (CK-2) 2.52 Troponin I 0.025 NT-Pro-B Natriuret Pep 2610 H 01/09/18 01/09/18 01/10/18 05:50 05:50 08:51 Creatine Kinase 501 H 556 H CK-MB (CK-2) Troponin I NT-Pro-B Natriuret Pep 5000 H 01/10/18 01/11/18 01/11/18 08:51 07:15 07:15 Creatine Kinase 410 H CK-MB (CK-2) 3.69 Troponin I NT-Pro-B Natriuret Pep 5390 H Impressions: Head CT 01/06/18 00:00 IMPRESSION: No acute findings. Age-appropriate minimal small vessel disease Stable punctate pontine calcification unchanged from 2013 EVIDENCE OF ACUTE STROKE: NO. Chest X-Ray 01/06/18 07:43 IMPRESSION: NO ACUTE RADIOGRAPHIC FINDING IN THE CHEST. Fluoroscopy 01/11/18 00:00 IMPRESSION: IMAGE(S) OBTAINED DURING PROCEDURE. Tibia/Fibula X-Ray 01/11/18 00:00 IMPRESSION: IMAGE(S) OBTAINED DURING PROCEDURE. Assessment & Plan - Diagnosis (1) Trimalleolar fracture of left ankle QualifierTitle: Encounter type: subsequent encounter Fracture type: closed Fracture healing: with malunion Qualified Code(s): S82.852P - Displaced trimalleolar fracture of left lower leg, subsequent encounter for closed fracture with malunion Is this a current diagnosis for this admission?: Yes Plan: Postop day 1; external fixation placed by Dr. Mclaughlin. Primary plan per Ortho; weightbearing, pain management, physical therapy, clearance for discharge to acute rehabilitation per orthopedics. Appreciate their assistance and recommendations. (2) Bullous eruption Is this a current diagnosis for this admission?: Yes Plan: Improved. 3 serosanguineous bullae and one ruptured bullae were noted to the medial left ankle by ED physician and Dr. Mclaughlin once temporary splint was removed. The patient's ankle fracture is now stabilized with external fixation. Patient is afebrile and leukocytosis has resolved. Wound culture has no growth at 3 days. Final blood culture with no growth; second blood culture set revealed staph hominis. We will continue cefazolin 2 g every 8 hours. Antibiotic day #4 Monitor closely for signs of developing cellulitis. (3) Absence seizure disorder QualifierTitle: Intractability: not intractable Status epilepticus: without status epilepticus Qualified Code(s): G40.A09 - Absence epileptic syndrome, not intractable, without status epilepticus Is this a current diagnosis for this admission?: Yes Plan: Patient endorses a history of absent seizures with last known seizure greater than 15 years ago. Depakote level 37.7; dose was subsequently increased to Depakote 1250 mg nightly. We will continue to monitor Depakote levels and adjust dose as needed. Fall and seizure precautions in place. (4) BPH (benign prostatic hyperplasia) QualifierTitle: Lower urinary tract symptom presence: symptoms absent Qualified Code(s): N40.0 - Benign prostatic hyperplasia without lower urinary tract symptoms Is this a current diagnosis for this admission?: Yes Plan: Continue patient's home dose tamsulosin. (5) Chest pain QualifierTitle: Chest pain type: other chest pain Qualified Code(s): R07.89 - Other chest pain; R07.8 - Other chest pain Is this a current diagnosis for this admission?: Yes Plan: Resolved. The patient complained of chest pain upon arrival to the ED. EKG demonstrated left bundle branch block (old). Initial troponin 0 0.015, peaked at 0.028, no longer trending. Chest x-ray benign. Echocardiogram benign Stress test normal and only indicated previous MN. Cardiology was consulted; appreciate their evaluation recommendations. (6) Diabetes QualifierTitle: Diabetes mellitus type: type 2 Diabetes mellitus digital communications manager insulin use: with digital communications manager use Diabetes mellitus complication status: without complication Qualified Code(s): E11.9 - Type 2 diabetes mellitus without complications; Z79.4 - electronic scale subassembler (current) use of insulin; Z79.4 - [facility] (current) use of insulin; Z79.4 - electronic scale subassembler (current) use of insulin; Z79.4 - electronic scale subassembler (current) use of insulin Is this a current diagnosis for this admission?: Yes Plan: Consistent carb diet. Accu-Cheks before meals and at bedtime with Humalog for sliding scale coverage. (7) Fall QualifierTitle: Encounter type: subsequent encounter Qualified Code(s): W19.XXXD - Unspecified fall, subsequent encounter Is this a current diagnosis for this admission?: Yes Plan: Patient with multiple falls at home resulting in trimalleolar fracture of the left ankle. Patient's states that she is not able to manage his physical needs at this time. Head CT was normal. Nonweightbearing on left lower extremity per orthopedics. Physical therapy per orthopedics recommendations. Discharge planning has been consulted; anticipate SNF for, at minimum, acute rehabilitation. May require long-term placement. (8) HLD (hyperlipidemia) QualifierTitle: Hyperlipidemia type: unspecified Qualified Code(s): E78.5 - Hyperlipidemia, unspecified Is this a current diagnosis for this admission?: Yes Plan: Continue home statin therapy. (9) HTN (hypertension) QualifierTitle: Hypertension type: essential hypertension Qualified Code( s): I10 - Essential (primary) hypertension Is this a current diagnosis for this admission?: Yes Plan: Normotensive at present; continue home dose metoprolol. (10) PTSD (post-traumatic stress disorder) Is this a current diagnosis for this admission?: Yes Plan: Continue home medication regimen; Namenda, trazodone, and prozac. Haldol as needed for agitation that may result in accidental self-harm. (11) Rhabdomyolysis QualifierTitle: Rhabdomyolysis type: traumatic Encounter type: initial encounter Qualified Code(s): T79.6XXA - Traumatic ischemia of muscle, initial encounter Is this a current diagnosis for this admission?: Yes Plan: Improved; peaked at 1077 and now at 410. Continue gentle IV fluid rehydration. Encourage p.o. fluids. (12) Sundowning Is this a current diagnosis for this admission?: Yes Plan: Patient reports confusion overnight and difficulty sleeping. Encourage day/night orientation. Allow family at bedside when possible. As needed p.o. Haldol for sundowning related agitation. Fall precautions. (13) Constipation Is this a current diagnosis for this admission?: Yes Plan: Schedule Colace, MiraLAX daily as needed. - Time Time Spent with patient: 25-34 minutes Anticipated discharge: Acute Rehab Within: Other - When cleared by orthopedics <NOEMI MATHEWS - Last Filed: 01/13/18 15:54> Subjective Reason For Visit: FALL, CHEST PAIN Physical Exam Vital Signs: Temp Pulse Resp BP Pulse Ox 99.2 F 87 18 168/65 H 97 01/13/18 08:00 01/13/18 08:00 01/13/18 08:00 01/13/18 08:00 01/13/18 08:00 Intake & Output 01/12/18 01/13/18 01/14/18 06:59 06:59 06:59 Intake Total 3920 1726 Output Total 1010 1050 Balance 2910 676 Weight 101.3 kg 108.5 kg Results Laboratory Results: 01/13/18 05:45 01/13/18 05:45 01/13/18 01/13/18 05:45 05:45 WBC 7.6 RBC 3.29 L Hgb 10.7 L Hct 30.7 L MCV 93 MCH 32.6 MCHC 34.9 RDW 13.4 Plt Count 167 Sodium 136.9 L Potassium 3.9 Chloride 101 Carbon Dioxide 26 Anion Gap 10 BUN 14 Creatinine 0.70 Est GFR ( Amer) > 60 Est GFR (Non-Af Amer) > 60 Glucose 245 H Calcium 7.9 L 01/09/18 09:30 Ankle - Sore Gram Stain - Final 01/09/18 09:30 Ankle - Sore Wound Culture - Final NO GROWTH 3 DAYS 01/06/18 01/06/18 01/06/18 11:26 11:26 17:30 Creatine Kinase 265 H 711 H CK-MB (CK-2) 1.61 Troponin I 0.023 NT-Pro-B Natriuret Pep 01/06/18 01/06/18 01/06/18 17:30 23:33 23:33 Creatine Kinase 1077 H CK-MB (CK-2) 2.93 2.72 Troponin I 0.025 0.028 NT-Pro-B Natriuret Pep 01/08/18 01/08/18 01/08/18 07:20 07:20 07:20 Creatine Kinase 695 H CK-MB (CK-2) 2.52 Troponin I 0.025 NT-Pro-B Natriuret Pep 2610 H 01/09/18 01/09/18 01/10/18 05:50 05:50 08:51 Creatine Kinase 501 H 556 H CK-MB (CK-2) Troponin I NT-Pro-B Natriuret Pep 5000 H 01/10/18 01/11/18 01/11/18 08:51 07:15 07:15 Creatine Kinase 410 H CK-MB (CK-2) 3.69 Troponin I NT-Pro-B Natriuret Pep 5390 H 01/13/18 01/13/18 05:45 05:45 Creatine Kinase 242 H CK-MB (CK-2) Troponin I NT-Pro-B Natriuret Pep 3040 H Impressions: Head CT 01/06/18 00:00 IMPRESSION: No acute findings. Age-appropriate minimal small vessel disease Stable punctate pontine calcification unchanged from 2013 EVIDENCE OF ACUTE STROKE: NO. Chest X-Ray 01/06/18 07:43 IMPRESSION: NO ACUTE RADIOGRAPHIC FINDING IN THE CHEST. Fluoroscopy 01/11/18 00:00 IMPRESSION: IMAGE(S) OBTAINED DURING PROCEDURE. Tibia/Fibula X-Ray 01/11/18 00:00 IMPRESSION: IMAGE(S) OBTAINED DURING PROCEDURE. Assessment & Plan - Plan Summary Plan Summary: Co signing note for Judie Ramos NP
[2018-01-12] MEDS: TRAZODONE HCL 50 MG TABLET PO SCH (21:36)
[2018-01-12] MEDS: PHENYTOIN SODIUM EXTENDED 100 MG CAPSULE PO SCH (21:36)
[2018-01-12] MEDS: DIVALPROEX SODIUM 500 MG TAB.SR.24H PO SCH (21:36)
[2018-01-12] MEDS: ASPIRIN 325 MG TABLET PO SCH (21:36)
[2018-01-12] MEDS: DIVALPROEX SODIUM 250 MG TAB.SR.24H PO SCH (21:37)
[2018-01-12] MEDS: SIMVASTATIN 40 MG TABLET PO SCH (21:37)
[2018-01-13] MEDS: CEFAZOLIN SODIUM 2 GM in NORMAL SALINE 100 ML IV SCH (02:43)
[2018-01-13] MEDS: INSULIN LISPRO 100 UNIT/ML 3 ML VIAL SUBCUT PRN ×5 (02:43→22:32)
[2018-01-13] MEDS: GABAPENTIN 300 MG CAPSULE PO SCH ×3 (05:46→22:33)
[2018-01-13] MEDS: METOPROLOL TARTRATE 25 MG TABLET PO SCH ×2 (05:46→18:19)
[2018-01-13] MEDS: LANSOPRAZOLE 15 MG TAB.RAP.DR PO SCH ×2 (05:46→18:20)
[2018-01-13 06:39] LABS: HEMATOCRIT 30.7 % (37.9-51.0); HEMOGLOBIN 10.7 g/dL (13.5-17.0); MEAN CORPUSCULAR HEMOGLOBIN 32.6 pg (27.0-33.4); MEAN CORPUSCULAR HGB CONC 34.9 g/dL (32.0-36.0); MEAN CORPUSCULAR VOLUME 93 fl (80-97); PLATELET COUNT 167 10^3/uL (150-450); RED BLOOD COUNT 3.29 10^6/uL (4.35-5.55); RED CELL DISTRIBUTION WIDTH 13.4 % (11.5-14.0); WHITE BLOOD COUNT 7.6 10^3/uL (4.0-10.5)
[2018-01-13 07:04] LABS: ANION GAP 10 (5-19); BLOOD UREA NITROGEN 14 mg/dL (7-20); CALCIUM 7.9 mg/dL (8.4-10.2); CARBON DIOXIDE 26 mmol/L (22-30); CHLORIDE 101 mmol/L (98-107); CREATINE KINASE 242 U/L (55-170); GLUCOSE 245 mg/dL (75-110); POTASSIUM 3.9 mmol/L (3.6-5.0); SODIUM 136.9 mmol/L (137-145)
--- NOTE | 2018-01-13 07:11 | PDOC PROGRESS REPORT ---
Subjective Progress Note for:: 01/13/18 Reason For Visit: FALL, CHEST PAIN 72-year-old white male with a left bimalleolar ankle fracture status post application of external fixator. Physical Exam Vital Signs: Temp Pulse Resp BP Pulse Ox 36.8 C 70 18 160/70 H 93 01/13/18 00:00 01/13/18 00:00 01/13/18 00:00 01/13/18 00:00 01/13/18 00:00 Intake & Output 01/12/18 01/13/18 01/14/18 06:59 06:59 06:59 Intake Total 3920 1726 Output Total 1010 1050 Balance 2910 676 Weight 101.3 kg 108.5 kg General appearance: PRESENT: no acute distress Head exam: PRESENT: normocephalic Respiratory exam: PRESENT: unlabored Cardiovascular exam: PRESENT: RRR Extremities exam: PRESENT: other - Left lower extremity dressings taken down. External fixator is in place. Pin tracks are clean. Posterior medial skin has been sloughed as well as over the medial malleolus. Distal neurovascular examination is intact. Neurological exam: PRESENT: alert, awake Results Laboratory Results: 01/13/18 05:45 01/13/18 05:45 WBC 7.6 RBC 3.29 L Hgb 10.7 L Hct 30.7 L MCV 93 MCH 32.6 MCHC 34.9 RDW 13.4 Plt Count 167 01/09/18 09:30 Ankle - Sore Gram Stain - Final 01/09/18 09:30 Ankle - Sore Wound Culture - Final NO GROWTH 3 DAYS 01/06/18 01/06/18 01/06/18 11:26 11:26 17:30 Creatine Kinase 265 H 711 H CK-MB (CK-2) 1.61 Troponin I 0.023 NT-Pro-B Natriuret Pep 01/06/18 01/06/18 01/06/18 17:30 23:33 23:33 Creatine Kinase 1077 H CK-MB (CK-2) 2.93 2.72 Troponin I 0.025 0.028 NT-Pro-B Natriuret Pep 01/08/18 01/08/18 01/08/18 07:20 07:20 07:20 Creatine Kinase 695 H CK-MB (CK-2) 2.52 Troponin I 0.025 NT-Pro-B Natriuret Pep 2610 H 01/09/18 01/09/18 01/10/18 05:50 05:50 08:51 Creatine Kinase 501 H 556 H CK-MB (CK-2) Troponin I NT-Pro-B Natriuret Pep 5000 H 01/10/18 01/11/18 01/11/18 08:51 07:15 07:15 Creatine Kinase 410 H CK-MB (CK-2) 3.69 Troponin I NT-Pro-B Natriuret Pep 5390 H 01/13/18 05:45 Creatine Kinase CK-MB (CK-2) Troponin I NT-Pro-B Natriuret Pep 3040 H Impressions: Head CT 01/06/18 00:00 IMPRESSION: No acute findings. Age-appropriate minimal small vessel disease Stable punctate pontine calcification unchanged from 2013 EVIDENCE OF ACUTE STROKE: NO. Chest X-Ray 01/06/18 07:43 IMPRESSION: NO ACUTE RADIOGRAPHIC FINDING IN THE CHEST. Fluoroscopy 01/11/18 00:00 IMPRESSION: IMAGE(S) OBTAINED DURING PROCEDURE. Tibia/Fibula X-Ray 01/11/18 00:00 IMPRESSION: IMAGE(S) OBTAINED DURING PROCEDURE. Status: Imported from PACS Assessment & Plan - Diagnosis (1) Bimalleolar fracture of left ankle Is this a current diagnosis for this admission?: Yes Plan: Uncomplicated postoperative course. Nursing can begin pin tract care to the external fixator. Silvadene cream to the posterior medial aspect of the foot and ankle for the superficial skin slough. Physical therapy is requested for out of bed to a chair on a touchdown weightbearing restriction. Patient be transferred to a halfway facility when bed available.
[2018-01-13] MEDS: MULTIVITAMIN TABLET PO SCH (07:43)
[2018-01-13] MEDS: OXYCODONE HCL IR 5 MG TABLET PO PRN (08:23)
[2018-01-13] MEDS: MEMANTINE HCL 10 MG TABLET PO SCH ×2 (09:10→18:20)
[2018-01-13] MEDS: SENNOSIDES/DOCUSATE 8.6-50 MG 1 EACH TABLET PO SCH ×2 (09:10→18:18)
[2018-01-13] MEDS: ENOXAPARIN SODIUM INJ 40 MG/0.4 ML DISP.SYRIN SUBCUT SCH (09:11)
[2018-01-13] MEDS: SILVER SULFADIAZINE 1% CREAM 50 GM TP SCH (10:19)
[2018-01-13] MEDS: CEPHALEXIN 500 MG CAPSULE PO SCH ×3 (11:48→23:15)
[2018-01-13] MEDS: TAMSULOSIN HCL 0.4 MG CAP.SR.24H PO SCH (15:26)
[2018-01-13] MEDS ORDERED: NORMAL SALINE 1000 ML 1,000 ML IV PRN (17:08)
--- NOTE | 2018-01-13 17:09 | PDOC PROGRESS REPORT ---
Subjective Progress Note for:: 01/13/18 Subjective:: The patient is a 72-year-old male with past medical history significant for CHF , CAD, PR with CABG 4, hyperlipidemia, hypertension, BPH, absence seizure, diabetes, and dementia who was admitted for a chest pain workup and left ankle fracture following mechanical fall at home. The patient is now status post external fixation by orthopedics. The patient is seen on morning rounds with his present. He is found resting in the recliner comfortably on room air. The patient is alert and oriented 3, but defers to his for answering of most questions. He reports that he is very fatigued today; he has been up to the chair multiple times today to practice transfers. He denies fever, chills, headache, chest pain, palpitations, dyspnea, abdominal pain, nausea, vomiting, diarrhea and constipation. They are aware that orthopedics has approved discharge to SNF and they are pleased by his progress. Ultimate goal is for the patient to return home once ambulatory. They have no questions or concerns for me at this time. Reason For Visit: FALL, CHEST PAIN Physical Exam Vital Signs: Temp Pulse Resp BP Pulse Ox 99.2 F 87 18 168/65 H 97 01/13/18 08:00 01/13/18 08:00 01/13/18 08:00 01/13/18 08:00 01/13/18 08:00 Intake & Output 01/12/18 01/13/18 01/14/18 06:59 06:59 06:59 Intake Total 3920 1726 Output Total 1010 1050 Balance 2910 676 Weight 101.3 kg 108.5 kg General appearance: PRESENT: no acute distress, obese, well-developed, well- nourished Head exam: PRESENT: atraumatic, normocephalic Eye exam: PRESENT: conjunctiva pink, EOMI, PERRLA. ABSENT: scleral icterus Mouth exam: PRESENT: moist, tongue midline Neck exam: ABSENT: carotid bruit, JVD, lymphadenopathy, thyromegaly Respiratory exam: PRESENT: clear to auscultation ramon, symmetrical, unlabored. ABSENT: rales, rhonchi, wheezes Cardiovascular exam: PRESENT: RRR, +S1, +S2. ABSENT: diastolic murmur, rubs, systolic murmur Pulses: PRESENT: other - Left pedal pulse verified by Doppler Vascular exam: PRESENT: normal capillary refill GI/Abdominal exam: PRESENT: normal bowel sounds, soft. ABSENT: distended, guarding, mass, organolmegaly, rebound, tenderness Rectal exam: PRESENT: deferred Extremities exam: PRESENT: +1 edema - Left lower extremity. ABSENT: calf tenderness, clubbing, pedal edema Musculoskeletal exam: PRESENT: other - External fixation to left ankle Neurological exam: PRESENT: alert, awake, oriented to person, oriented to place , oriented to time, oriented to situation, CN II-XII grossly intact, other - Fatigued, forgetful. At baseline per . ABSENT: motor sensory deficit Psychiatric exam: PRESENT: appropriate affect, normal mood. ABSENT: homicidal ideation, suicidal ideation Skin exam: PRESENT: dry, erythema - Left anterior and medial ankle, warm, other - Open bullae to left medial ankle, no drainage. Multiple small (less than 1 cm at greatest diameter) bullae to anterior left ankle. Slight surrounding erythema.. ABSENT: cyanosis, intact, rash Results Laboratory Results: 01/13/18 05:45 01/13/18 05:45 01/13/18 01/13/18 05:45 05:45 WBC 7.6 RBC 3.29 L Hgb 10.7 L Hct 30.7 L MCV 93 MCH 32.6 MCHC 34.9 RDW 13.4 Plt Count 167 Sodium 136.9 L Potassium 3.9 Chloride 101 Carbon Dioxide 26 Anion Gap 10 BUN 14 Creatinine 0.70 Est GFR ( Amer) > 60 Est GFR (Non-Af Amer) > 60 Glucose 245 H Calcium 7.9 L 01/06/18 01/06/18 01/06/18 11:26 11:26 17:30 Creatine Kinase 265 H 711 H CK-MB (CK-2) 1.61 Troponin I 0.023 NT-Pro-B Natriuret Pep 01/06/18 01/06/18 01/06/18 17:30 23:33 23:33 Creatine Kinase 1077 H CK-MB (CK-2) 2.93 2.72 Troponin I 0.025 0.028 NT-Pro-B Natriuret Pep 01/08/18 01/08/18 01/08/18 07:20 07:20 07:20 Creatine Kinase 695 H CK-MB (CK-2) 2.52 Troponin I 0.025 NT-Pro-B Natriuret Pep 2610 H 01/09/18 01/09/18 01/10/18 05:50 05:50 08:51 Creatine Kinase 501 H 556 H CK-MB (CK-2) Troponin I NT-Pro-B Natriuret Pep 5000 H 01/10/18 01/11/18 01/11/18 08:51 07:15 07:15 Creatine Kinase 410 H CK-MB (CK-2) 3.69 Troponin I NT-Pro-B Natriuret Pep 5390 H 01/13/18 01/13/18 05:45 05:45 Creatine Kinase 242 H CK-MB (CK-2) Troponin I NT-Pro-B Natriuret Pep 3040 H Impressions: Head CT 01/06/18 00:00 IMPRESSION: No acute findings. Age-appropriate minimal small vessel disease Stable punctate pontine calcification unchanged from 2013 EVIDENCE OF ACUTE STROKE: NO. Chest X-Ray 01/06/18 07:43 IMPRESSION: NO ACUTE RADIOGRAPHIC FINDING IN THE CHEST. Fluoroscopy 01/11/18 00:00 IMPRESSION: IMAGE(S) OBTAINED DURING PROCEDURE. Tibia/Fibula X-Ray 01/11/18 00:00 IMPRESSION: IMAGE(S) OBTAINED DURING PROCEDURE. Assessment & Plan - Diagnosis (1) Bimalleolar fracture of left ankle Is this a current diagnosis for this admission?: Yes Plan: Postop day 2; external fixation placed by Dr. Mclaughlin. Primary plan per Ortho; approved for toe touching with physical therapy. Cleared for discharge to SNF once bed is available. Wound care per orthopedics recommendation; standard protocol for external fixation insertion sites. Silvadene ointment to bullae. (2) Bullous eruption Is this a current diagnosis for this admission?: Yes Plan: Improved. 3 serosanguineous bullae and one ruptured bullae were noted to the medial left ankle by ED physician and Dr. Mclaughlin once temporary splint was removed. The patient's ankle fracture is now stabilized with external fixation. Patient is afebrile and leukocytosis has resolved. Wound culture has no growth at 3 days. Final blood culture with no growth; second blood culture set revealed staph hominis. The patient received 5 days of IV cefazolin. Have transitioned to p.o. Keflex for the remainder of antibiotic course. Silvadene ointment with dressing changes. Monitor closely for signs of developing cellulitis. (3) Absence seizure disorder Qualifiers: Intractability: not intractable Status epilepticus: without status epilepticus Qualified Code(s): G40.A09 - Absence epileptic syndrome, not intractable, without status epilepticus Is this a current diagnosis for this admission?: Yes Plan: Patient endorses a history of absent seizures with last known seizure greater than 15 years ago. Depakote level trending down. Will increase to Depakote ER 1500 mg daily. We will continue to monitor Depakote levels and adjust dose as needed. Next dose check would be due in 3 days; however, should assess prior to d/c to SNF. Fall and seizure precautions in place. (4) BPH (benign prostatic hyperplasia) Qualifiers: Lower urinary tract symptom presence: symptoms absent Qualified Code(s): N40.0 - Benign prostatic hyperplasia without lower urinary tract symptoms Is this a current diagnosis for this admission?: Yes Plan: Continue patient's home dose tamsulosin. (5) Chest pain Qualifiers: Chest pain type: other chest pain Qualified Code(s): R07.89 - Other chest pain; R07.8 - Other chest pain Is this a current diagnosis for this admission?: Yes Plan: Resolved. The patient complained of chest pain upon arrival to the ED. EKG demonstrated left bundle branch block (old). Initial troponin 0 0.015, peaked at 0.028, no longer trending. Chest x-ray benign. Echocardiogram benign Stress test normal and only indicated previous PR. Cardiology was consulted; appreciate their evaluation recommendations. (6) Diabetes Qualifiers: Diabetes mellitus type: type 2 Diabetes mellitus nursing home insulin use: with bed bug exterminator use Diabetes mellitus complication status: without complication Qualified Code(s): E11.9 - Type 2 diabetes mellitus without complications; Z79.4 - [employer] (current) use of insulin; Z79.4 - [employer] ( current) use of insulin; Z79.4 - [employer] (current) use of insulin; Z79.4 - [employer] (current) use of insulin Is this a current diagnosis for this admission?: Yes Plan: Consistent carb diet. Accu-Cheks before meals and at bedtime with Humalog for sliding scale coverage. (7) Fall Qualifiers: Encounter type: subsequent encounter Qualified Code(s): W19.XXXD - Unspecified fall, subsequent encounter Is this a current diagnosis for this admission?: Yes Plan: Patient with multiple falls at home resulting in trimalleolar fracture of the left ankle. Patient's states that she is not able to manage his physical needs at this time. Head CT was normal. Nonweightbearing on left lower extremity per orthopedics. Physical therapy per orthopedics recommendations. Discharge planning has been consulted; anticipate SNF for, at minimum, acute rehabilitation. May require long-term placement. (8) HLD (hyperlipidemia) Qualifiers: Hyperlipidemia type: unspecified Qualified Code(s): E78.5 - Hyperlipidemia , unspecified Is this a current diagnosis for this admission?: Yes Plan: Continue home statin therapy. (9) HTN (hypertension) Qualifiers: Hypertension type: essential hypertension Qualified Code(s): I10 - Essential (primary) hypertension Is this a current diagnosis for this admission?: Yes Plan: Normotensive at present; continue home dose metoprolol. (10) PTSD (post-traumatic stress disorder) Is this a current diagnosis for this admission?: Yes Plan: Continue home medication regimen; Namenda, trazodone, and prozac. Haldol as needed for agitation that may result in accidental self-harm. (11) Rhabdomyolysis Qualifiers: Rhabdomyolysis type: traumatic Encounter type: initial encounter Qualified Code(s): T79.6XXA - Traumatic ischemia of muscle, initial encounter Is this a current diagnosis for this admission?: Yes Plan: Improved; peaked at 1077 and now at 242. Continue gentle IV fluid rehydration. Encourage p.o. fluids. (12) Sundowning Is this a current diagnosis for this admission?: Yes Plan: Patient reports confusion overnight and difficulty sleeping. Encourage day/night orientation. Allow family at bedside when possible. As needed p.o. Haldol for sundowning related agitation. Fall precautions. (13) Constipation Is this a current diagnosis for this admission?: Yes Plan: Schedule Colace, MiraLAX daily as needed. - Time Time Spent with patient: 15-24 minutes Medications reviewed and adjusted accordingly: Yes Anticipated discharge: SNF Within: when bed available
[2018-01-13] MEDS: FLUOXETINE HCL 20 MG CAPSULE PO SCH (18:18)
[2018-01-13] MEDS: MUPIROCIN 2% OINTMENT 22 GM TP SCH (18:20)
[2018-01-13] MEDS ORDERED: DIVALPROEX SODIUM 250 MG TAB.SR.24H PO SCH (22:00)
[2018-01-13] MEDS: PHENYTOIN SODIUM EXTENDED 100 MG CAPSULE PO SCH (22:32)
[2018-01-13] MEDS: ASPIRIN 325 MG TABLET PO SCH (22:32)
[2018-01-13] MEDS: DIVALPROEX SODIUM 500 MG TAB.SR.24H PO SCH (22:33)
[2018-01-13] MEDS: TRAZODONE HCL 50 MG TABLET PO SCH (22:33)
[2018-01-13] MEDS: SIMVASTATIN 40 MG TABLET PO SCH (22:33)
[2018-01-14] MEDS: LANSOPRAZOLE 15 MG TAB.RAP.DR PO SCH (06:00)
[2018-01-14] MEDS: CEPHALEXIN 500 MG CAPSULE PO SCH ×2 (06:00→11:18)
[2018-01-14] MEDS: GABAPENTIN 300 MG CAPSULE PO SCH ×2 (06:00→13:44)
[2018-01-14] MEDS: METOPROLOL TARTRATE 25 MG TABLET PO SCH (06:00)
--- NOTE | 2018-01-14 06:03 | PDOC PROGRESS REPORT ---
Subjective Progress Note for:: 01/14/18 Reason For Visit: FALL, CHEST PAIN 72-year-old white male with a left ankle fracture status post external fixation because of compromised skin condition and the potential complications from an open procedure. Physical Exam Vital Signs: Temp Pulse Resp BP Pulse Ox 36.8 C 69 17 144/56 H 89 L 01/13/18 23:45 01/14/18 05:25 01/13/18 23:45 01/14/18 05:25 01/13/18 23:45 Intake & Output 01/12/18 01/13/18 01/14/18 06:59 06:59 06:59 Intake Total 3920 1726 1466 Output Total 1010 1050 625 Balance 2910 676 841 Weight 101.3 kg 108.5 kg 101.5 kg General appearance: PRESENT: no acute distress Head exam: PRESENT: normocephalic Respiratory exam: PRESENT: unlabored Cardiovascular exam: PRESENT: RRR Pulses: PRESENT: +1 pedal pulses bilateral Vascular exam: PRESENT: normal capillary refill GI/Abdominal exam: PRESENT: soft Rectal exam: PRESENT: deferred Extremities exam: PRESENT: other - External fixator in place. Postoperative blood evident at the base of the pins indicative of an absence of inadequate pin tract care. Brisk capillary refill to the digits. Results Laboratory Results: 01/13/18 05:45 01/13/18 05:45 01/13/18 01/13/18 05:45 05:45 WBC 7.6 RBC 3.29 L Hgb 10.7 L Hct 30.7 L MCV 93 MCH 32.6 MCHC 34.9 RDW 13.4 Plt Count 167 Sodium 136.9 L Potassium 3.9 Chloride 101 Carbon Dioxide 26 Anion Gap 10 BUN 14 Creatinine 0.70 Est GFR ( Amer) > 60 Est GFR (Non-Af Amer) > 60 Glucose 245 H Calcium 7.9 L 01/06/18 01/06/18 01/06/18 11:26 11:26 17:30 Creatine Kinase 265 H 711 H CK-MB (CK-2) 1.61 Troponin I 0.023 NT-Pro-B Natriuret Pep 01/06/18 01/06/18 01/06/18 17:30 23:33 23:33 Creatine Kinase 1077 H CK-MB (CK-2) 2.93 2.72 Troponin I 0.025 0.028 NT-Pro-B Natriuret Pep 01/08/18 01/08/18 01/08/18 07:20 07:20 07:20 Creatine Kinase 695 H CK-MB (CK-2) 2.52 Troponin I 0.025 NT-Pro-B Natriuret Pep 2610 H 01/09/18 01/09/18 01/10/18 05:50 05:50 08:51 Creatine Kinase 501 H 556 H CK-MB (CK-2) Troponin I NT-Pro-B Natriuret Pep 5000 H 01/10/18 01/11/18 01/11/18 08:51 07:15 07:15 Creatine Kinase 410 H CK-MB (CK-2) 3.69 Troponin I NT-Pro-B Natriuret Pep 5390 H 01/13/18 01/13/18 05:45 05:45 Creatine Kinase 242 H CK-MB (CK-2) Troponin I NT-Pro-B Natriuret Pep 3040 H Impressions: Head CT 01/06/18 00:00 IMPRESSION: No acute findings. Age-appropriate minimal small vessel disease Stable punctate pontine calcification unchanged from 2014 EVIDENCE OF ACUTE STROKE: NO. Chest X-Ray 01/06/18 07:43 IMPRESSION: NO ACUTE RADIOGRAPHIC FINDING IN THE CHEST. Fluoroscopy 01/11/18 00:00 IMPRESSION: IMAGE(S) OBTAINED DURING PROCEDURE. Tibia/Fibula X-Ray 01/11/18 00:00 IMPRESSION: IMAGE(S) OBTAINED DURING PROCEDURE. Status: Imported from PACS Assessment & Plan - Diagnosis (1) Bimalleolar fracture of left ankle Is this a current diagnosis for this admission?: Yes Plan: Pin tracks in the deep clean with peroxide each shift and then the pin skin interface coated with triple antibiotic ointment. Patient is out of bed to a chair on a touchdown weightbearing restriction. - Time Time Spent with patient: 15-24 minutes Anticipated discharge: SNF Within: when bed available
[2018-01-14] MEDS: INSULIN LISPRO 100 UNIT/ML 3 ML VIAL SUBCUT PRN ×2 (06:48→11:58)
[2018-01-14] MEDS: MULTIVITAMIN TABLET PO SCH (07:57)
[2018-01-14] MEDS ORDERED: NEOMY/BACITRAC ZN/POLY OINT 15 GM TP SCH (08:00)
[2018-01-14] MEDS: SENNOSIDES/DOCUSATE 8.6-50 MG 1 EACH TABLET PO SCH (09:28)
[2018-01-14] MEDS: MEMANTINE HCL 10 MG TABLET PO SCH (09:28)
[2018-01-14] MEDS: ENOXAPARIN SODIUM INJ 40 MG/0.4 ML DISP.SYRIN SUBCUT SCH (09:29)
[2018-01-14] MEDS: SILVER SULFADIAZINE 1% CREAM 50 GM TP SCH (09:30)
--- NOTE | 2018-01-14 11:16 | PDOC TRANSFER SUMMARY ---
General - Admit/Disc Date/PCP Admission Date/Primary Care Provider: 01/06/18 09:41 Discharge Date: 01/14/18 - Discharge Diagnosis (1) Bimalleolar fracture of left ankle Is this a current diagnosis for this admission?: Yes (2) Bullous eruption Is this a current diagnosis for this admission?: Yes (3) Absence seizure disorder Is this a current diagnosis for this admission?: Yes (4) BPH (benign prostatic hyperplasia) Is this a current diagnosis for this admission?: Yes (5) Chest pain Is this a current diagnosis for this admission?: Yes (6) Diabetes Is this a current diagnosis for this admission?: Yes (7) Fall Is this a current diagnosis for this admission?: Yes (8) HLD (hyperlipidemia) Is this a current diagnosis for this admission?: Yes (9) HTN (hypertension) Is this a current diagnosis for this admission?: Yes (10) PTSD (post-traumatic stress disorder) Is this a current diagnosis for this admission?: Yes (11) Rhabdomyolysis Is this a current diagnosis for this admission?: Yes (12) Sundowning Is this a current diagnosis for this admission?: Yes (13) Constipation Is this a current diagnosis for this admission?: Yes - Additional Information Resuscitation Status: Do Not Intubate Discharge Diet: Diabetic Discharge Activity: Activity As Tolerated, Supervised Activity - w/ Physical and Occupational Therapy staff; out of bed with staff assistance, Other - Touchdown weight bearing restiction Prescriptions: Cephalexin Monohydrate [Keflex 500 mg Capsule] 500 mg PO Q6 #56 capsule Divalproex Sodium [Depakote ER 500 mg Tab.sr] 1,500 mg PO QHS #14 tab.sr.24h Neomy Sulf/Bacitrac Zn/Poly [Neosporin Ointment 15 gm] 1 applic TP QSHIFT #1 tube Polyethylene Glycol 3350 [Miralax Powder 17 gm/Packet] 17 gm PO DAILYP PRN #14 powd.pack PRN Reason: Sennosides/Docusate 8.6-50 mg [Senna Plus Tablet] 2 each PO BID #60 tablet Silver Sulfadiazine [Silvadene 1% Cream 50 gm] 1 applic TP DAILY #1 tube Home Medications: Aspirin [Aspirin 325 mg Tablet] 325 mg PO QHS 06/04/13 Memantine HCl [Namenda 10 mg Tablet] 10 mg PO BID 06/04/13 Multivitamin [Multi-Vitamin Daily] 1 each PO QAM 06/04/13 NPH, Human Insulin Isophane [Novolin N (NPH) Insulin 100 unit/mL] 70 unit SUBCUT QHS 06/04/13 NPH, Human Insulin Isophane [Novolin N (NPH) Insulin 100 unit/mL] 80 unit SUBCUT QAM 06/04/13 Omeprazole 20 mg PO BID 06/04/13 Phenytoin Sodium Extended [Dilantin] 200 mg PO QHS 06/04/13 Trazodone HCl 100 mg PO QHS 06/04/13 Simvastatin [Zocor 80 mg Tablet] 80 mg PO QHS 06/08/15 Fluoxetine HCl [Prozac 20 mg Capsule] 40 mg PO DAILY 01/06/18 Gabapentin 300 mg PO TID 01/06/18 Loratadine [Claritin] 10 mg PO DAILY 01/06/18 Meclizine HCl 25 mg PO TIDP PRN 01/06/18 Metoprolol Tartrate [Lopressor 50 mg Tablet] 25 mg PO Q12H 01/06/18 Tamsulosin HCl 0.4 mg PO DAILY 01/06/18 Tramadol HCl [Ultram 50 mg Tablet] 50 mg PO TIDP PRN 01/06/18 Cephalexin Monohydrate [Keflex 500 mg Capsule] 500 mg PO Q6 #56 capsule Divalproex Sodium [Depakote ER 500 mg Tab.sr] 1,500 mg PO QHS #14 tab.sr.24h 02/24 Neomy Sulf/Bacitrac Zn/Poly [Neosporin Ointment 15 gm] 1 applic TP QSHIFT #1 tube 01/14/18 Polyethylene Glycol 3350 [Miralax Powder 17 gm/Packet] 17 gm PO DAILYP PRN #14 powd.pack 01/14/18 Sennosides/Docusate 8.6-50 mg [Senna Plus Tablet] 2 each PO BID #60 tablet 01/14 Silver Sulfadiazine [Silvadene 1% Cream 50 gm] 1 applic TP DAILY #1 tube History of Present Illness Admission Date/PCP: 01/06/18 09:41 History of Present Illness: Per H&P by MONI Shepard/Dr. Grossman: PATRICE SHORT JR is a 72 year old male who presented to the emergency department after falling at 0530 morning in his bathroom. Fall was witnessed by . No head trauma. Patient states he is unclear whether or not he lost consciousness, patient is amnesic to the event. states the patient was attempting to transfer from seated rolling walker to toilet when he lost his balance and fell to the ground. At that time the patient became nauseated and vomited x 3. and neighbor attempted to get patient off the ground, but were unsuccessful. EMS was called after man unsuccessful attempts to get patient off of the floor. Of note, the patient was discharged from the emergency department 24 hours ago following a trip and fall that resulted in an acute trimalleolar fracture with lateral subluxation of the talus, medial malleolus and distal fibular fragment. In the ED, traction was applied and replacement of dislocated ankle was preformed by Dr. Ryder. Splint was applied and patient was instructed to follow up with Dr. Chu in his office the next day (today). While in the emergency department today, the ER physician and PCT resplinted the LLE. When the initial splint was removed, 3 serosanguineous bullae and one ruptured bullae were discovered over the medial left ankle. Dr. Chu was consulted, he states there is no surgery planned for the immediate time being while the patient has a bullae because of increased risk of surgical site infection. The patient presented with relatively normal vital signs. BP 124/55 HR 86 RR 18 T 100.2 SPO2 96 on RA. Upon assessment, the patient is resting comfortably in bed. He complains of very mild pain to his left ankle. Describes it as constant and throbbing. Patient states that the pain radiates up his leg, however he emphasizes his lack of sensation in his lower extremities due to severe neuropathy. Lab work reveals leukocytosis (WBC 14), otherwise benign. EKG demonstrates LBBB, no indication of acute infarction or ischemia. CXR benign. Patient treated with 1 g Ancef x 1 for ruptured bullae. Additionally, the patient endorses constant chest pain that began this morning following his fall. He describes the pain as a 'soreness' that is nonradiating. Denies shortness of breath, palpitations, back pain. Initial troponin negative. /" Nitropaste applied to anterior chest wall. Cardiology consulted. Plan to admit to hospitalist service for chest pain workup and orthopedic follow-up. Hospital Course Hospital Course: The patient presented to the emergency department with a complaint of fall resulting in increased left lower extremity pain and inability to ambulate. He also complained of chest discomfort which has since resolved. Cardiac workup was reassuring: EKG demonstrated established left bundle branch block. Serial troponins were negative 5. Echocardiogram revealed LVEF is greater than 65% with normal systolic and diastolic function with a trace amount of tricuspid and pulmonic regurgitation noted. Nuclear stress test demonstrated a normal EKG and hemodynamic response to IV Lexiscan. The patient has had no further episodes of chest discomfort. The patient underwent external fixation of his left bimalleolar fracture by Dr. Mclaughlin on 01/12/18. He was empirically treated with IV ceftezole and 4 days; he has subsequently been transitioned to p.o. Keflex for remainder of antibiotic course. Wound care is provided with Silvadene ointment to bullae on left extremity. External fixation sites are cleaned with hydrogen peroxide daily followed by triple antibiotic ointment. The patient's erythema and edema have improved significantly. He remains afebrile with a normal WBC. The patient's diabetes was managed with consistent carb diet, Accu-Cheks before meals and at bedtime with Humalog for sliding scale coverage. At discharge, his home insulin regimen is resumed. The patient's had reported multiple falls at home. He is a 2 person assist to standing with touchdown weightbearing restriction to the left extremity. He will require staff support for all transfers. He is discharged to SNF for acute rehabilitation. Recommend PT/OT at orthopedics discretion. On admission the patient was noted to have mild rhabdomyolysis with a creatinine kinase of 1077. He was treated with gentle IV fluid rehydration; follow-up labs with creatinine kinase now at 242. He has good p.o. intake and urinary output. Recommend frequent position changes and encouragement of p.o. fluids to prevent dehydration. The patient has a long established absence seizure disorder. He is treated as an outpatient with Dilantin and Depakote. His Depakote was noted to be low with a valproic acid level of 28. His Depakote was increased from 1000 mg nightly to 1500 mg nightly. Recommend follow-up labs on 12/16/17. Would also recommend that his Dilantin level be assessed at this time. The patient does have baseline dementia and did experience a slight exacerbation of his symptoms in the evening hours with report of increased disorientation and occasional visual hallucinations. He was provided as needed p.o. Haldol for agitation. The patient and family are aware that this is likely a worsened response during hospital admission due to interruption in his routine. And do not request further medical evaluation or interventions. At time of discharge, the patient is in stable condition, maintaining oxygen saturations on room air, pain-free, and able to use transition from bed to chair with 2 person assist (no weightbearing left lower extremity). Physical Exam Vital Signs: Temp Pulse Resp BP Pulse Ox 99.0 F 71 19 156/70 H 96 01/14/18 07:33 01/14/18 07:33 01/14/18 07:33 01/14/18 07:33 01/14/18 07:33 Intake & Output 01/13/18 01/14/18 01/15/18 06:59 06:59 06:59 Intake Total 1726 2536 Output Total 1050 900 Balance 676 1636 Weight 108.5 kg 101.5 kg General appearance: PRESENT: no acute distress, cooperative, obese, well- developed, well-nourished Head exam: PRESENT: atraumatic, normocephalic Eye exam: PRESENT: conjunctiva pink, EOMI, PERRLA. ABSENT: scleral icterus Ear exam: PRESENT: normal external ear exam Mouth exam: PRESENT: moist, tongue midline Neck exam: ABSENT: carotid bruit, JVD, lymphadenopathy, thyromegaly Respiratory exam: PRESENT: clear to auscultation ramon, symmetrical, unlabored. ABSENT: rales, rhonchi, wheezes Cardiovascular exam: PRESENT: RRR, +S1, +S2. ABSENT: diastolic murmur, rubs, systolic murmur Pulses: PRESENT: normal dorsalis pedis pul Vascular exam: PRESENT: normal capillary refill GI/Abdominal exam: PRESENT: normal bowel sounds, soft. ABSENT: distended, guarding, mass, organolmegaly, rebound, tenderness Rectal exam: PRESENT: deferred Extremities exam: PRESENT: +1 edema - Left lower extremity, other - LROM left lower extremity; external fixation device in place.. ABSENT: calf tenderness, clubbing, full ROM, pedal edema Neurological exam: PRESENT: alert, awake, oriented to person, oriented to place , oriented to time, oriented to situation, CN II-XII grossly intact, other - Forgetful. ABSENT: motor sensory deficit Psychiatric exam: PRESENT: appropriate affect, normal mood. ABSENT: homicidal ideation, suicidal ideation Skin exam: PRESENT: dry, erythema - Medial and anterior left lower extremity erythema just proximal to the ankle; bullae present. Silvadene ointment in place. No surrounding erythema. No drainage present., warm. ABSENT: cyanosis , rash Results Laboratory Results: 01/13/18 05:45 01/13/18 05:45 01/06/18 01/06/18 01/06/18 11:26 11:26 17:30 Creatine Kinase 265 H 711 H CK-MB (CK-2) 1.61 Troponin I 0.023 NT-Pro-B Natriuret Pep 01/06/18 01/06/18 01/06/18 17:30 23:33 23:33 Creatine Kinase 1077 H CK-MB (CK-2) 2.93 2.72 Troponin I 0.025 0.028 NT-Pro-B Natriuret Pep 01/08/18 01/08/18 01/08/18 07:20 07:20 07:20 Creatine Kinase 695 H CK-MB (CK-2) 2.52 Troponin I 0.025 NT-Pro-B Natriuret Pep 2610 H 01/09/18 01/09/18 01/10/18 05:50 05:50 08:51 Creatine Kinase 501 H 556 H CK-MB (CK-2) Troponin I NT-Pro-B Natriuret Pep 5000 H 01/10/18 01/11/18 01/11/18 08:51 07:15 07:15 Creatine Kinase 410 H CK-MB (CK-2) 3.69 Troponin I NT-Pro-B Natriuret Pep 5390 H 01/13/18 01/13/18 05:45 05:45 Creatine Kinase 242 H CK-MB (CK-2) Troponin I NT-Pro-B Natriuret Pep 3040 H Impressions: Head CT 01/06/18 00:00 IMPRESSION: No acute findings. Age-appropriate minimal small vessel disease Stable punctate pontine calcification unchanged from 2013 EVIDENCE OF ACUTE STROKE: NO. Chest X-Ray 01/06/18 07:43 IMPRESSION: NO ACUTE RADIOGRAPHIC FINDING IN THE CHEST. Fluoroscopy 01/11/18 00:00 IMPRESSION: IMAGE(S) OBTAINED DURING PROCEDURE. Tibia/Fibula X-Ray 01/11/18 00:00 IMPRESSION: IMAGE(S) OBTAINED DURING PROCEDURE. Transfer Plan - Disposition Transfer Plan: DC to [facility] for [facility]-term rehabilitation. - Time Spent with Patient Time spent with patient: Less than 30 Minutes Qualifiers - * PATIENT BEING DISCHARGED WITH ANY OF THE FOLLOWING DIAGNOSIS: No Plan Discharge Plan: Discharge to SNF for wound care and acute rehabilitation. Follow-up with orthopedics in 1 week. Follow-up with primary care within 1 week. Time Spent: Greater than 30 Minutes
[2018-01-14] MEDS: OXYCODONE HCL IR 5 MG TABLET PO PRN (11:21)
[2018-01-14 12:36] VITALS: BP 145/61
[2018-01-14] MEDS ORDERED: DIVALPROEX SODIUM 500 MG TAB.SR.24H PO SCH (22:00)
== END 2018-01-14 15:10 | DRG 504 ==
LOC: ER 06:30 → EH 09:41 → 4S 13:00
PROVIDERS: ADMIT Internal Medicine; ATTEND Internal Medicine
PROC: 0QSM35Z Reposition Left Tarsal with External Fixation Device, Percutaneous Approach (ICD-10-PCS; principal; 2018-01-11 11:00)
DX: S82.852D Displaced trimalleolar fracture of left lower leg, subsequent encounter for closed fracture with routine healing (principal); F05 Delirium due to known physiological condition; T79.6XXA Traumatic ischemia of muscle, initial encounter; W01.0XXA Fall on same level from slipping, tripping and stumbling without subsequent striking against object, initial encounter; Y92.012 Bathroom of single-family (private) house as the place of occurrence of the external cause; R23.8 Other skin changes; G40.A09 Absence epileptic syndrome, not intractable, without status epilepticus; N40.0 Benign prostatic hyperplasia without lower urinary tract symptoms; E11.40 Type 2 diabetes mellitus with diabetic neuropathy, unspecified; E78.00 Pure hypercholesterolemia, unspecified; F43.10 Post-traumatic stress disorder, unspecified; K59.00 Constipation, unspecified; I44.7 Left bundle-branch block, unspecified; I08.8 Other rheumatic multiple valve diseases; I50.9 Heart failure, unspecified; I25.10 Atherosclerotic heart disease of native coronary artery without angina pectoris; I11.0 Hypertensive heart disease with heart failure; K21.9 Gastro-esophageal reflux disease without esophagitis; K44.9 Diaphragmatic hernia without obstruction or gangrene; M19.90 Unspecified osteoarthritis, unspecified site; F32.9 Major depressive disorder, single episode, unspecified; M17.11 Unilateral primary osteoarthritis, right knee; G89.29 Other chronic pain; M54.9 Dorsalgia, unspecified; F41.9 Anxiety disorder, unspecified; M48.00 Spinal stenosis, site unspecified; E66.9 Obesity, unspecified; F03.90 Unspecified dementia, unspecified severity, without behavioral disturbance, psychotic disturbance, mood disturbance, and anxiety; E11.65 Type 2 diabetes mellitus with hyperglycemia; I25.2 Old myocardial infarction; Z95.1 Presence of aortocoronary bypass graft; Z79.899 Other long term (current) drug therapy; Z98.42 Cataract extraction status, left eye; Z87.891 Personal history of nicotine dependence; Z98.41 Cataract extraction status, right eye; Z90.49 Acquired absence of other specified parts of digestive tract; Z79.82 Long term (current) use of aspirin; Z88.8 Allergy status to other drugs, medicaments and biological substances; Z91.018 Allergy to other foods; Z79.4 Long term (current) use of insulin; Z80.51 Family history of malignant neoplasm of kidney; Z82.49 Family history of ischemic heart disease and other diseases of the circulatory system; Z83.3 Family history of diabetes mellitus
CPT/HCPCS: 01480; 36415; 70450; 71045; 78452; 80048; 80053; 80164; 81001; 82550; 82553; 82962; 83690; 83735; 83880; 84100; 84443; 84484; 85025; 85027; 85610; 86140; 87040; 87070; 87077; 87086; 87186; 87205; 93005; 93010; 93017; 93306; 96361; A9500; G8978-GP; G8979-GP; J0690; J1100; J1170; J1650; J1815; J2250; J2405; J2704; J2785; J3010; J3490; J7030; J7120; Q9969; S0119

== ENCOUNTER 2018-02-05 20:58 | Emergency (ER) | payer OTHER, MEDICARE ==
[2018-02-05 21:16] VITALS: BP 147/59
--- NOTE | 2018-02-05 21:56 | RADIOLOGY REPORT (SQ) ---
EXAM DESCRIPTION: CHEST SINGLE VIEW COMPLETED DATE/TIME: 02/05/2018 9:47 pm REASON FOR STUDY: fevers COMPARISON: 01/06/2018 EXAM PARAMETERS: NUMBER OF VIEWS: One view. TECHNIQUE: Single frontal radiographic view of the chest acquired. RADIATION DOSE: NA LIMITATIONS: None. FINDINGS: LUNGS AND PLEURA: No opacities, masses or pneumothorax. No pleural effusion. MEDIASTINUM AND HILAR STRUCTURES: No masses. Contour normal. HEART AND VASCULAR STRUCTURES: Heart normal in size. Normal vasculature. BONES: No acute findings. HARDWARE: Sternal wires. OTHER: No other significant finding. IMPRESSION: NO ACUTE RADIOGRAPHIC FINDING IN THE CHEST. TECHNICAL DOCUMENTATION: JOB ID: [id number] [employer]- All Rights Reserved Reading location - IP/workstation name: [email or web address]
[2018-02-05 22:05] LABS: VENOUS BLOOD BASE EXCESS 1.7 mmol/L; VENOUS BLOOD HCO3 26.7 mmol/L (20-32); VENOUS BLOOD PCO2 43.3 mmHg (35-63); VENOUS BLOOD PH 7.41 (7.30-7.42)
--- NOTE | 2018-02-05 22:05 | ER Document Report ---
ED Fever - General Chief Complaint: Fever Stated Complaint: FEVER Time Seen by Provider: 02/05/18 22:02 Notes: The patient is a 72-year-old male past medical history diabetes, peripheral neuropathy, presents with 1 day of fever up to 103 at [facility]. He was given 1000 mg Tylenol staff prior to arrival. 3 weeks ago, he had a left trimalleolar fracture surgically repaired by Dr. Oakley. He denies drainage from the surgical wounds. Patient had a urinary tract infection last week and finished a course of Bactrim [facility] to him [facility]. Patient also denies productive cough, headache, neck stiffness, increased foot pain, cellulitis, abdominal pain, nausea, vomiting, diarrhea or constipation. TRAVEL OUTSIDE OF THE [place] IN LAST 30 DAYS: No - Related Data Allergies/Adverse Reactions: paroxetine HCl [From Paxil] Allergy (Unknown, Verified 01/06/18 11:53) Hives mushroom Allergy (Verified 01/06/18 11:53) naproxen [From Naprosyn] Allergy (Verified 01/06/18 11:53) Hives cabbage Adverse Reaction (Mild, Verified 01/06/18 11:53) Past Medical History - General Information source: Patient - Social History Smoking Status: Unknown if Ever Smoked Family History: CAD, DM, Malignancy - Father-renal carcinoma, Other - HTN Patient has suicidal ideation: No Patient has homicidal ideation: No - Past Medical History Cardiac Medical History: Reports: Hx Congestive Heart Failure, Hx Coronary Artery Disease, 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 Denies: Hx Cerebrovascular Accident Endocrine Medical History: Reports: Hx Diabetes Mellitus Type 1, Hx Diabetes Mellitus Type 2 Renal/ Medical History: Denies: Hx Peritoneal Dialysis GI Medical History: Reports: Hx Gastroesophageal Reflux Disease, Hx Hiatal Hernia Musculoskeltal Medical History: Reports Hx Arthritis Psychiatric Medical History: Reports: Hx Depression, Hx Post Traumatic Stress Disorder Past Surgical History: Reports: Hx Cardiac Surgery - quadruple bypass, Hx Cholecystectomy, Hx Coronary Artery Bypass Graft - x 4, Hx Orthopedic Surgery - carpal tunnel, Hx Vascular Surgery, Other - Shrapnel removal from abdomen. Denies: Hx Abdominal Surgery, Hx Bowel Surgery, Hx Cardiac Catheterization, Hx Neurologic Surgery, Hx Nose Surgery, Hx Open Heart Surgery, Hx Oral Surgery, Hx Thyroid Surgery, Hx Tonsillectomy - Immunizations Hx Diphtheria, Pertussis, Tetanus Vaccination: Yes Hx Pneumococcal Vaccination: 08/10/07 Review of Systems - Review of Systems Notes: REVIEW OF SYSTEMS: CONSTITUTIONAL: +fevers, -chills EENT: -eye pain, -difficulty swallowing, -nasal congestion CARDIOVASCULAR: -chest pain, -syncope. RESPIRATORY: -cough, -SOB GASTROINTESTINAL: -abdominal pain, -nausea, -vomiting, -diarrhea GENITOURINARY: +dysuria, -hematuria MUSCULOSKELETAL: +left foot surgery, -back pain, -neck pain SKIN: -rash or skin lesions. HEMATOLOGIC: -easy bruising or bleeding. LYMPHATIC: -swollen, enlarged glands. NEUROLOGICAL: -altered mental status or loss of consciousness, -headache, - neurologic symptoms PSYCHIATRIC: -anxiety, -depression. ALL OTHER SYSTEMS REVIEWED AND NEGATIVE. Physical Exam - Vital signs Vitals: Temp Pulse Resp BP Pulse Ox 102.9 F H 101 H 18 147/59 H 95 02/05/18 21:10 02/05/18 21:10 02/05/18 21:10 02/05/18 21:10 02/05/18 21:10 - Notes Notes: PHYSICAL EXAMINATION: GENERAL: Very well-appearing, well-nourished and in no acute distress. HEAD: Atraumatic, normocephalic. EYES: Pupils equal round and reactive to light, extraocular movements intact, sclera anicteric, conjunctiva are normal. ENT: nares patent, oropharynx clear without exudates. Moist mucous membranes. NECK: Normal range of motion, supple without lymphadenopathy LUNGS: Breath sounds clear to auscultation bilaterally and equal. No wheezes rales or rhonchi. HEART: Regular rate and rhythm without murmurs ABDOMEN: Soft, mild suprapubic tenderness, normoactive bowel sounds. No guarding, no rebound. No masses appreciated. BACK: Mild right CVA tenderness. EXTREMITIES: Left foot with external fixation, no discharge from the surgical wounds and no surrounding erythema. No pitting or edema. No cyanosis. NEUROLOGICAL: Cranial nerves grossly intact. Normal speech. Normal sensory and motor exams. PSYCH: Normal mood, normal affect. SKIN: Warm, Dry, normal turgor, no rashes or lesions noted. Course - Re-evaluation Re-evalutation: Patient appears very well and is in no acute distress. He appears to have a urinary tract infection. With his fever and mild right CVA tenderness, will treat him for pyelonephritis with Keflex. Urine culture sent. There does not appear to be any signs of surgical site infection at this time. With his well appearance, normal vital signs and normal lactate level, he appears safe for outpatient treatment of his pyelonephritis. Instructed him to follow-up with Dr. Oakley for any concerns about his surgical site and to return to the ER if he has any worsening symptoms. - Vital Signs Vital signs: Temp Pulse Resp BP Pulse Ox 102.9 F H 101 H 18 147/59 H 95 02/05/18 21:10 02/05/18 21:10 02/05/18 21:10 02/05/18 21:10 02/05/18 21:10 - Laboratory Result Diagrams: 02/05/18 21:51 02/05/18 21:51 Laboratory results interpreted by me: 02/05/18 02/05/18 02/05/18 21:51 21:51 21:51 WBC 13.7 H RBC 3.66 L Hgb 11.6 L Hct 34.2 L Seg Neutrophils % 81.3 H Lymphocytes % 7.5 L Absolute Neutrophils 11.1 H Glucose 131 H Urine Protein 30 H Urine Glucose (UA) 50 H Urine Blood SMALL H Urine Nitrite POSITIVE H Ur Leukocyte Esterase LARGE H - Diagnostic Test Radiology reviewed: Image reviewed, Reports reviewed Radiology results interpreted by me: CXR: NAD Discharge - Discharge Clinical Impression: Pyelonephritis Condition: Stable Disposition: HOME, SELF-CARE Additional Instructions: PYELONEPHRITIS: Your evaluation shows evidence of pyelonephritis. This is an infection in the kidney. Typical symptoms are fever, pain in the flank, pain on urination, and frequent urination. Many cases of pyelonephritis can be treated at home. Hospital care may be necessary for patients who are very ill, or elderly or . Pyelonephritis is treated with antibiotics. Be sure to take all the medication as prescribed. Drink plenty of liquids (about three quarts per day) . You may take acetaminophen for fever. You should feel significantly improved within two days. You should have a recheck of your urine in about one week to insure that the infection is gone. Return for a re-examination if your symptoms worsen in any way -- such as high fever, shaking chills, severe weakness or dizziness, severe pain, or inability to pass your urine. ANTIBIOTIC THERAPY: You have been given an antibiotic prescription. It's important that you take all the medication, unless instructed otherwise by your physician. Failure to complete the entire course can result in relapse of your condition. Common side effects of antibiotics include nausea, intestinal cramping, or diarrhea. Women may develop vaginal yeast infections, and babies can get yeast (thrush) in the mouth following the use of antibiotics. Contact your physician if you develop significant side effects from this medication. Allergy to this antibiotic can result in hives, wheezing, faintness, or itching. If symptoms of allergy occur, stop the medication and call the doctor. ROCEPHIN: You have been given an injection of an antibiotic called Rocephin ( ceftriaxone). Sometimes the injection must be combined with antibiotic pills. For some infections, such as an uncomplicated ear infection, Rocephin provides all the antibiotic that's needed. The antibiotic will be in your body for about two days. For serious infections, we usually repeat doses of Rocephin daily. Side effects are very unusual following a shot. Women may develop vaginal yeast infections, and babies can get yeast (thrush) in the mouth following the use of antibiotics. Contact your physician if you have symptoms with this medication. Allergy to this antibiotic can result in hives, wheezing, faintness, or itching. If symptoms of allergy occur, call the doctor at once. CEPHALEXIN: The antibiotic you've been prescribed is a member of the cephalosporin class. This type of antibiotic covers a wide variety of infections, including those of the skin, lungs, and urinary tract. It's useful for staph infections. This antibiotic is slightly similar to the penicillin family. In rare cases , a person who is allergic to penicillin will also be allergic to this medication. If you have had a severe allergic reaction to penicillin, and have not taken this antibiotic since that time, notify your doctor. Antibiotics which cover many germs ("broad spectrum" antibiotics) are more likely to cause diarrhea or "yeast" infections. Women prone to vaginal yeast problems may suffer an attack after taking this antibiotic. In infants, oral thrush (white spots "stuck" on the cheek) or yeast diaper rash may result. See your doctor if these problems occur. Call at once if you develop itching, hives , shortness of breath, or lightheadedness. USE OF ACETAMINOPHEN (Tylenol): Acetaminophen may be taken for pain relief or fever control. It's much safer than aspirin, offering a wider range of "safe" dosages. It is safe during . Some brand names are Tylenol, Panadol, Datril, Anacin 3, Tempra, and Liquiprin. Acetaminophen can be repeated every four hours. The following are maximum recommended dosages: >89 pounds or adults 650 mg to 900 mg Acetaminophen can be repeated every four hours. Maximum dose not to exceed 4000 mg a day. FOLLOW-UP CARE: If you have been referred to a physician for follow-up care, call the physician s office for an appointment as you were instructed or within the next two days. If you experience worsening or a significant change in your symptoms, notify the physician immediately or return to the Emergency Department at any time for re-evaluation. Prescriptions: Cephalexin Monohydrate [Keflex 500 mg Capsule] 500 mg PO TID 7 Days capsule Forms: Elevated Blood Pressure Referrals: KAYLA FIGUEROA MD [Primary Care Provider] - Follow up as needed KUN OAKLEY MD [ACTIVE STAFF] - Follow up as needed
[2018-02-05 22:06] LABS: ABSOLUTE BASOPHILS # (AUTO) 0.1 10^3/uL (0.0-0.2); ABSOLUTE EOSINOPHILS # (AUTO) 0.1 10^3/uL (0.0-0.6); ABSOLUTE MONOCYTES (AUTO) 1.4 10^3/uL (0.1-1.4); ABSOLUTE NEUT (AUTO) 11.1 10^3/uL (1.7-8.2); BASOPHILS % (AUTO) 0.5 % (0-2); EOSINOPHILS % (AUTO) 0.5 % (0-6); HEMATOCRIT 34.2 % (37.9-51.0); HEMOGLOBIN 11.6 g/dL (13.5-17.0); LYMPHOCYTES % (AUTO) 7.5 % (13-45); MEAN CORPUSCULAR HEMOGLOBIN 31.8 pg (27.0-33.4); MEAN CORPUSCULAR VOLUME 93 fl (80-97); MONOCYTES % (AUTO) 10.2 % (3-13); PLATELET COUNT 160 10^3/uL (150-450); RED BLOOD COUNT 3.66 10^6/uL (4.35-5.55); RED CELL DISTRIBUTION WIDTH 13.4 % (11.5-14.0); SEGMENTED NEUTROPHILS % (AUTO) 81.3 % (42-78); TOTAL CELLS COUNTED % (AUTO) 100 %; WHITE BLOOD COUNT 13.7 10^3/uL (4.0-10.5)
[2018-02-05 22:14] LABS: INTERNATIONAL RATION (INR) 1.01; PROTHROMBIN TIME 13.8 SEC (11.4-15.4)
[2018-02-05] MEDS ORDERED: PIPERACILLIN/TAZOBACTAM 3.375 GM VIAL IV ONE (22:16)
[2018-02-05] MEDS ORDERED: VANCOMYCIN HCL INJ 1000 MG VIAL IV ONE (22:16)
[2018-02-05 22:18] LABS: APPEARANCE,URINE SLIGHTLY-CLOUDY; BILIRUBIN,URINE NEGATIVE (NEGATIVE); COLOR,URINE YELLOW; GLUCOSE, URINE 50 mg/dL (NEGATIVE); KETONES,URINE NEGATIVE (NEGATIVE); LEUKOCYTE ESTERASE,URINE LARGE (NEGATIVE); NITRITE,URINE POSITIVE (NEGATIVE); PROTEIN,URINE 30 mg/dL (NEGATIVE); URINE SPECIFIC GRAVITY 1.018; UROBILINOGEN,URINE NEGATIVE mg/dL (<2.0)
[2018-02-05 22:19] LABS: ALANINE AMINOTRANSFERASE 22 U/L (21-72); ALBUMIN 3.7 g/dL (3.5-5.0); ALKALINE PHOSPHATASE 84 U/L (38-126); ANION GAP 11 (5-19); ASPARTATE AMINO TRANSFERASE 22 U/L (17-59); BILIRUBIN,DIRECT 0.4 mg/dL (0.0-0.4); BILIRUBIN,TOTAL 0.6 mg/dL (0.2-1.3); BLOOD UREA NITROGEN 16 mg/dL (7-20); CALCIUM 8.7 mg/dL (8.4-10.2); CARBON DIOXIDE 26 mmol/L (22-30); CHLORIDE 103 mmol/L (98-107); GLUCOSE 131 mg/dL (75-110); POTASSIUM 4.5 mmol/L (3.6-5.0); SODIUM 140.3 mmol/L (137-145); TOTAL PROTEIN 7.2 g/dL (6.3-8.2)
[2018-02-05] MEDS ORDERED: IBUPROFEN 600 MG TABLET PO ONE (22:35)
[2018-02-05] MEDS ORDERED: CEFTRIAXONE 1 GM/D5W RTU 1 GM/50 ML RTUPB IV ONE (22:37)
== END 2018-02-06 00:35 | disposition home or self-care (01) ==
LOC: ER 20:58
DX: N12 Tubulo-interstitial nephritis, not specified as acute or chronic (principal); R50.9 Fever, unspecified; I25.10 Atherosclerotic heart disease of native coronary artery without angina pectoris; E78.00 Pure hypercholesterolemia, unspecified; I11.0 Hypertensive heart disease with heart failure; E11.9 Type 2 diabetes mellitus without complications; Z86.73 Personal history of transient ischemic attack (TIA), and cerebral infarction without residual deficits; I25.2 Old myocardial infarction; Z95.1 Presence of aortocoronary bypass graft; Z90.49 Acquired absence of other specified parts of digestive tract
CPT/HCPCS: 99285; 96365; 36415; 87040; 87086; 85025; 85610; 87088; 80053; 81001; 87186; 82803; 83605; 71045; J0696

== ENCOUNTER 2018-02-06 16:29 | Inpatient (IN) | payer OTHER, MEDICARE ==
[2018-02-06] MEDS ORDERED: LEVOFLOXACIN 750 MG/D5W RTU 750 MG/150 ML RTUPB IV ONE (16:53)
[2018-02-06 16:54] LABS: AMORPHOUS SEDIMENT,URINE TRACE /HPF; APPEARANCE,URINE SLIGHTLY-CLOUDY; BILIRUBIN,URINE NEGATIVE (NEGATIVE); COLOR,URINE YELLOW; GLUCOSE, URINE 50 mg/dL (NEGATIVE); KETONES,URINE NEGATIVE (NEGATIVE); LEUKOCYTE ESTERASE,URINE LARGE (NEGATIVE); NITRITE,URINE NEGATIVE (NEGATIVE); PROTEIN,URINE 30 mg/dL (NEGATIVE); UROBILINOGEN,URINE NEGATIVE mg/dL (<2.0)
[2018-02-06 16:58] LABS: VENOUS BLOOD BASE EXCESS 2.4 mmol/L; VENOUS BLOOD HCO3 27.3 mmol/L (20-32); VENOUS BLOOD PCO2 43.5 mmHg (35-63); VENOUS BLOOD PH 7.42 (7.30-7.42)
--- NOTE | 2018-02-06 16:58 | ER Document Report ---
ED General - General Mode of Arrival: Medic Information source: Patient TRAVEL OUTSIDE OF THE [place] IN LAST 30 DAYS: No <EDGAR JUAN - Last Filed: 02/06/18 17:30> <KATYA AMARO - Last Filed: 02/06/18 18:44> - General Stated Complaint: FEVER Time Seen by Provider: 02/06/18 16:43 Notes: Patient is a 72 year old male with CHF, CAD, HTN, peripheral neuropathy and a history of RI presents to the emergency department complaining of a fever onset yesterday and bilateral leg pain. Patient states his leg pain is just below the knees. Patient denies decreased appetite or fluid intake. Patient states he was given a Tylenol by longterm staff before he was sent to the emergency department. In triage, patient had a temperature of 103.2 Patient was seen and discharged from this emergency department yesterday around 22:00 for a fever and was found to have a UTI. Patient had just finished his dosing of Septra provided by [facility] for a UTI. Patient's urine culture from 2017 showed >100,000 gram negative rods. Of significance, patient fell and broke his ankle on 01/06/[address] Mclaughlin performed surgery on 01/11/2018 and was discharged to rehab. . (EDGAR JUAN) - Related Data Allergies/Adverse Reactions: paroxetine HCl [From Paxil] Allergy (Unknown, Verified 01/06/18 11:53) Hives mushroom Allergy (Verified 01/06/18 11:53) naproxen [From Naprosyn] Allergy (Verified 01/06/18 11:53) Hives cabbage Adverse Reaction (Mild, Verified 01/06/18 11:53) Past Medical History - General Information source: Patient - Social History Smoking Status: Unknown if Ever Smoked Family History: CAD, DM, Malignancy - Father-renal carcinoma, Other - HTN - Past Medical History Cardiac Medical History: Reports: Hx Congestive Heart Failure, Hx Coronary Artery Disease, 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 4 , Hx Hypercholesterolemia, Hx Hypertension - ON MEDS Pulmonary Medical History: Reports: Hx Bronchitis - hx of , Hx Pneumonia - 1994 Neurological Medical History: Reports: Hx Seizures - ABSENCE FOR 15 YRS- LAST SZ 15YRS AGO Endocrine Medical History: Reports: Hx Diabetes Mellitus Type 2 GI Medical History: Reports: Hx Gastroesophageal Reflux Disease, Hx Hiatal Hernia Musculoskeltal Medical History: Reports Hx Arthritis Psychiatric Medical History: Reports: Hx Depression, Hx Post Traumatic Stress Disorder Past Surgical History: Reports: Hx Cardiac Surgery - quadruple bypass, Hx Cholecystectomy, Hx Coronary Artery Bypass Graft - x 4, Hx Orthopedic Surgery - carpal tunnel, Hx Vascular Surgery, Other - Shrapnel removal from abdomen - Immunizations Hx Diphtheria, Pertussis, Tetanus Vaccination: Yes Hx Pneumococcal Vaccination: 08/10/07 <EDGAR JUAN - Last Filed: 02/06/18 17:30> Review of Systems - Review of Systems Constitutional: See HPI, Fever EENT: No symptoms reported Cardiovascular: No symptoms reported Respiratory: No symptoms reported Gastrointestinal: No symptoms reported Genitourinary: No symptoms reported Male Genitourinary: No symptoms reported Musculoskeletal: No symptoms reported Skin: No symptoms reported Hematologic/Lymphatic: No symptoms reported Neurological/Psychological: No symptoms reported -: Yes All other systems reviewed and negative <EDGAR JUAN - Last Filed: 02/06/18 17:30> Physical Exam - General General appearance: Appears well, Alert, Other - Shivering at bedside In distress: None - HEENT Head: Normocephalic, Atraumatic Eyes: Normal Conjunctiva: Normal Extraocular movements intact: Yes Pupils: PERRL Mucous membranes: Dry Neck: Normal - Respiratory Respiratory status: No respiratory distress Chest status: Nontender Breath sounds: Normal Chest palpation: Normal - Cardiovascular Rhythm: Regular, Tachycardia Heart sounds: Normal auscultation Murmur: No Friction rub: No Gallop: None auscultated - Abdominal Inspection: Normal Distension: No distension Bowel sounds: Normal Tenderness: Nontender Organomegaly: No organomegaly - Back Back: Normal - Extremities General upper extremity: Normal ROM General lower extremity: Normal ROM Ankle: Other - External fixation placed on left ankle, small amount of erythema , no drainage. - Neurological Neuro grossly intact: Yes Cognition: Normal Orientation: AAOx4 [place] Coma Scale Eye Opening: Spontaneous [place] Coma Scale Verbal: Oriented [place] Coma Scale Motor: Obeys Commands Hannah Coma Scale Total: 15 Speech: Normal - Psychological Associated symptoms: Normal affect, Normal mood - Skin Skin Temperature: Warm Skin Moisture: Dry Skin irregularity: other - Right lower extremity contains multiple scabs, no swelling, nontender to palpation, no erythema. <EDGAR JUAN - Last Filed: 02/06/18 17:30> - Vital signs Vitals: Temp 103.2 F H 02/06/18 16:30 Course - Laboratory Result Diagrams: 02/06/18 16:43 02/06/18 16:43 <EDGAR JUAN - Last Filed: 02/06/18 17:30> - Laboratory Result Diagrams: 02/06/18 16:43 02/06/18 16:43 - EKG Interpretation by Me EKG shows normal: Sinus rhythm, [place], Intervals, QRS Complexes, ST-T Waves Rate: Tachycardia - 101 [place]/QRS: LBBB When compared to previous EKG there are: No significant change <KATYA AMARO - Last Filed: 02/06/18 18:44> - Vital Signs Vital signs: Temp Pulse Resp BP Pulse Ox 103.2 F H 20 126/47 H 97 02/06/18 16:34 02/06/18 18:01 02/06/18 18:01 02/06/18 18:01 - Laboratory Laboratory results interpreted by me: 02/06/18 02/06/18 02/06/18 16:38 16:43 16:43 WBC 17.4 H RBC 3.38 L Hgb 10.6 L Hct 31.5 L Lymphocytes % 12.8 L Absolute Neutrophils 12.8 H Absolute Monocytes 2.2 H BUN 26 H Creatinine 1.70 H Est GFR ( Amer) 48 L Est GFR (Non-Af Amer) 40 L Glucose 219 H Calcium 8.2 L ALT 16 L Albumin 3.4 L Urine Protein 30 H Urine Glucose (UA) 50 H Urine Blood SMALL H Ur Leukocyte Esterase LARGE H Discharge <EDGAR JUAN - Last Filed: 02/06/18 17:30> - Discharge Admitting Provider: Hospitalist Unit Admitted: Telemetry <KATYA AMARO - Last Filed: 02/06/18 18:44> - Discharge Clinical Impression: Urinary tract infection, Fever, Leukocytosis Condition: Good Disposition: ADMITTED INPATIENT Referrals: KAYLA FIGUEROA MD [Primary Care Provider] - Follow up as needed Scribe Attestation: 02/06/18 18:27 I personally performed the services described in the documentation, reviewed and edited the documentation which was dictated to the scribe in my presence, and it accurately records my words and actions. (KATYA AMARO) Scribe Documentation - Scribe Written by Kizzy:: Kizzy Carpenter, 02/06/2018 17:22 acting as scribe for :: Betsy <EDGAR JUAN - Last Filed: 02/06/18 17:30>
[2018-02-06 17:04] LABS: ABSOLUTE EOSINOPHILS # (AUTO) 0.1 10^3/uL (0.0-0.6); ABSOLUTE LYMPHOCYTES (AUTO) 2.2 10^3/uL (0.5-4.7); ABSOLUTE MONOCYTES (AUTO) 2.2 10^3/uL (0.1-1.4); ABSOLUTE NEUT (AUTO) 12.8 10^3/uL (1.7-8.2); BASOPHILS % (AUTO) 0.2 % (0-2); EOSINOPHILS % (AUTO) 0.4 % (0-6); HEMATOCRIT 31.5 % (37.9-51.0); HEMOGLOBIN 10.6 g/dL (13.5-17.0); LYMPHOCYTES % (AUTO) 12.8 % (13-45); MEAN CORPUSCULAR HEMOGLOBIN 31.3 pg (27.0-33.4); MEAN CORPUSCULAR HGB CONC 33.6 g/dL (32.0-36.0); MEAN CORPUSCULAR VOLUME 93 fl (80-97); MONOCYTES % (AUTO) 12.9 % (3-13); PLATELET COUNT 162 10^3/uL (150-450); RED BLOOD COUNT 3.38 10^6/uL (4.35-5.55); RED CELL DISTRIBUTION WIDTH 13.8 % (11.5-14.0); SEGMENTED NEUTROPHILS % (AUTO) 73.7 % (42-78); TOTAL CELLS COUNTED % (AUTO) 100 %; WHITE BLOOD COUNT 17.4 10^3/uL (4.0-10.5)
[2018-02-06] MEDS ORDERED: NORMAL SALINE 1000 ML 1,000 ML IV ONE (17:17)
[2018-02-06 17:18] LABS: ALANINE AMINOTRANSFERASE 16 U/L (21-72); ALBUMIN 3.4 g/dL (3.5-5.0); ALKALINE PHOSPHATASE 82 U/L (38-126); ANION GAP 13 (5-19); ASPARTATE AMINO TRANSFERASE 21 U/L (17-59); BILIRUBIN,DIRECT 0.4 mg/dL (0.0-0.4); BILIRUBIN,TOTAL 0.5 mg/dL (0.2-1.3); BLOOD UREA NITROGEN 26 mg/dL (7-20); CALCIUM 8.2 mg/dL (8.4-10.2); CARBON DIOXIDE 27 mmol/L (22-30); CHLORIDE 98 mmol/L (98-107); GLUCOSE 219 mg/dL (75-110); POTASSIUM 4.3 mmol/L (3.6-5.0); SODIUM 137.6 mmol/L (137-145); TOTAL PROTEIN 6.7 g/dL (6.3-8.2)
[2018-02-06 17:19] LABS: INTERNATIONAL RATION (INR) 1.04; PROTHROMBIN TIME 14.1 SEC (11.4-15.4)
[2018-02-06] MEDS ORDERED: TRAMADOL HCL 50 MG TABLET PO PRN (18:29)
[2018-02-06] MEDS ORDERED: METOPROLOL TARTRATE 50 MG TABLET PO SCH (18:30)
[2018-02-06] MEDS ORDERED: ONDANSETRON HCL INJ/PF 4 MG/2 ML SDV IV PRN (18:33)
[2018-02-06] MEDS ORDERED: ALBUTEROL SULFATE 0.083% NEB 2.5 MG/3 ML AMPUL NEB PRN (18:33)
[2018-02-06] MEDS ORDERED: ONDANSETRON 4 MG TAB.RAPDIS PO PRN (18:33)
[2018-02-06] MEDS ORDERED: ACETAMINOPHEN 325 MG TABLET PO PRN (18:33)
[2018-02-06] MEDS ORDERED: 1/2 NORMAL SALINE 1,000 ML IV PRN (18:33)
[2018-02-06] MEDS ORDERED: MECLIZINE HCL 25 MG TABLET PO PRN (18:45)
[2018-02-06] MEDS ORDERED: HUM INSULIN NPH/REG INSULIN HM 100 UNIT/1 ML 3 ML SUBCUT ONE (18:50)
--- NOTE | 2018-02-06 18:54 | PDOC H&P ---
History of Present Illness Admission Date/PCP: KAYLA FIGUEROA MD February 06, 2018 Patient complains of: Weakness fever History of Present Illness: PATRICE SHORT JR is a 72 year old male with a past medical history of Benign prostatic hypertrophy Diabetes Hypertension Hyperlipidemia PTSD Bimalleolar left ankle fracture-in rehab Dementia Peripheral neuropathy Coronary artery disease Echocardiogram done in December 2017 showed a left ventricular ejection fraction of 65%. He presented to the emergency room with fever. The patient had been recently treated with a course of Bactrim for UTI. He presented in the hospital yesterday with symptoms of UTI, and was sent back to the halfway facility. Today he was found to have high-grade fevers leukocytosis and acute renal failure. He was treated with IV fluids and antibiotics and referred for admission. Healthcare power of civil attorney is his . Patient requests to be a DO NOT RESUSCITATE. Past Medical History Cardiac Medical History: Reports: Congestive Heart Failure, Coronary Artery Disease, Myocardial Infarction - 1994 - cabg x 4 , Hyperlipidema, Hypertension - ON MEDS Pulmonary Medical History: Reports: Bronchitis - hx of , Pneumonia - 1994 Neurological Medical History: Reports: Seizures - ABSENCE FOR 15 YRS- LAST SZ 15YRS AGO Endocrine Medical History: Reports: Diabetes Mellitus Type 1, Diabetes Mellitus Type 2 GI Medical History: Reports: Gastroesophageal Reflux Disease, Hiatal Hernia Musculoskeltal Medical History: Reports: Arthritis Psychiatric Medical History: Reports: Depression, Post Traumatic Stress Disorder Past Surgical History Past Surgical History: Reports: Cholecystectomy, Coronary Artery Bypass Graft - x 4, Orthopedic Surgery - carpal tunnel, Vascular Surgery, Other - Shrapnel removal from abdomen Social History Smoking Status: Unknown if Ever Smoked Frequency of Alcohol Use: None Hx Recreational Drug Use: No Hx Prescription Drug Abuse: No - Advance Directive Resuscitation Status: Do Not Resuscitate Family History Family History: CAD, DM, Malignancy - Father-renal carcinoma, Other - HTN Parental Family History Reviewed: Yes Children Family History Reviewed: Yes Sibling(s) Family History Reviewed.: Yes Medication/Allergy Home Medications: Aspirin [Aspirin 325 mg Tablet] 325 mg PO QHS 06/04/13 Memantine HCl [Namenda 10 mg Tablet] 10 mg PO BID 06/04/13 Multivitamin [Multi-Vitamin Daily] 1 each PO QAM 06/04/13 NPH, Human Insulin Isophane [Novolin N (NPH) Insulin 100 unit/mL] 70 unit SUBCUT QHS 06/04/13 NPH, Human Insulin Isophane [Novolin N (NPH) Insulin 100 unit/mL] 80 unit SUBCUT QAM 06/04/13 Omeprazole 20 mg PO BID 06/04/13 Phenytoin Sodium Extended [Dilantin] 200 mg PO QHS 06/04/13 Trazodone HCl 100 mg PO QHS 06/04/13 Simvastatin [Zocor 80 mg Tablet] 80 mg PO QHS 06/08/15 Fluoxetine HCl [Prozac 20 mg Capsule] 40 mg PO DAILY 01/06/18 Gabapentin 300 mg PO TID 01/06/18 Loratadine [Claritin] 10 mg PO DAILY 01/06/18 Meclizine HCl 25 mg PO TIDP PRN 01/06/18 Metoprolol Tartrate [Lopressor 50 mg Tablet] 25 mg PO Q12H 01/06/18 Tamsulosin HCl 0.4 mg PO DAILY 01/06/18 Tramadol HCl [Ultram 50 mg Tablet] 50 mg PO TIDP PRN 01/06/18 Cephalexin Monohydrate [Keflex 500 mg Capsule] 500 mg PO Q6 #56 capsule Divalproex Sodium [Depakote ER 500 mg Tab.sr] 1,500 mg PO QHS #14 tab.sr.24h 02/24 Neomy Sulf/Bacitrac Zn/Poly [Neosporin Ointment 15 gm] 1 applic TP QSHIFT #1 tube 01/14/18 Polyethylene Glycol 3350 [Miralax Powder 17 gm/Packet] 17 gm PO DAILYP PRN #14 powd.pack 01/14/18 Sennosides/Docusate 8.6-50 mg [Senna Plus Tablet] 2 each PO BID #60 tablet 01/14 Silver Sulfadiazine [Silvadene 1% Cream 50 gm] 1 applic TP DAILY #1 tube Cephalexin Monohydrate [Keflex 500 mg Capsule] 500 mg PO TID 7 Days capsule Allergies/Adverse Reactions: paroxetine HCl [From Paxil] Allergy (Unknown, Verified 01/06/18 11:53) Hives mushroom Allergy (Verified 01/06/18 11:53) naproxen [From Naprosyn] Allergy (Verified 01/06/18 11:53) Hives cabbage Adverse Reaction (Mild, Verified 01/06/18 11:53) Review of Systems Constitutional: PRESENT: fever(s), weakness Eyes: ABSENT: visual disturbances Ears: ABSENT: hearing changes Nose, Mouth, and Throat: ABSENT: sore throat Cardiovascular: ABSENT: chest pain, edema Respiratory: ABSENT: dyspnea Gastrointestinal: ABSENT: constipation, dysphagia, hematochezia, vomiting Genitourinary: ABSENT: difficulty urinating Musculoskeletal: ABSENT: joint swelling Integumentary: ABSENT: pruritus Neurological: ABSENT: focal weakness Psychiatric: ABSENT: hallucinations Endocrine: ABSENT: heat intolerance Hematologic/Lymphatic: ABSENT: easy bleeding Allergic/Immunologic: ABSENT: seasonal rhinorrhea Physical Exam Vital Signs: Temp Pulse Resp BP Pulse Ox 103.2 F H 20 126/47 H 97 02/06/18 16:34 02/06/18 18:01 02/06/18 18:01 02/06/18 18:01 Intake & Output 02/05/18 02/06/18 02/07/18 06:59 06:59 06:59 Weight 101.4 kg General appearance: PRESENT: no acute distress, well-developed, well-nourished Head exam: PRESENT: normocephalic Eye exam: PRESENT: PERRLA. ABSENT: scleral icterus Mouth exam: PRESENT: moist Teeth exam: PRESENT: edentulous Neck exam: ABSENT: tracheal deviation Respiratory exam: PRESENT: symmetrical, unlabored. ABSENT: crackles Cardiovascular exam: PRESENT: RRR GI/Abdominal exam: PRESENT: normal bowel sounds, soft. ABSENT: tenderness Rectal exam: PRESENT: deferred Gentrourinary exam: ABSENT: indwelling catheter Extremities exam: ABSENT: pedal edema Neurological exam: PRESENT: alert, awake, oriented to person, oriented to place , oriented to time, oriented to situation Psychiatric exam: PRESENT: appropriate affect Skin exam: ABSENT: petechiae Results Laboratory Results: 02/06/18 16:43 02/06/18 16:43 02/06/18 02/06/18 02/06/18 16:38 16:43 16:43 WBC 17.4 H RBC 3.38 L Hgb 10.6 L Hct 31.5 L MCV 93 MCH 31.3 MCHC 33.6 RDW 13.8 Plt Count 162 Seg Neutrophils % 73.7 Lymphocytes % 12.8 L Monocytes % 12.9 Eosinophils % 0.4 Basophils % 0.2 Absolute Neutrophils 12.8 H Absolute Lymphocytes 2.2 Absolute Monocytes 2.2 H Absolute Eosinophils 0.1 Absolute Basophils 0.0 VBG pH VBG pCO2 VBG HCO3 VBG Base Excess Sodium 137.6 Potassium 4.3 Chloride 98 Carbon Dioxide 27 Anion Gap 13 BUN 26 H Creatinine 1.70 H Est GFR ( Amer) 48 L Est GFR (Non-Af Amer) 40 L Glucose 219 H Lactic Acid Calcium 8.2 L Total Bilirubin 0.5 AST 21 ALT 16 L Alkaline Phosphatase 82 Total Protein 6.7 Albumin 3.4 L Urine Color YELLOW Urine Appearance SLIGHTLY-CLOUDY Urine pH 5.0 Ur Specific [place] 1.020 Urine Protein 30 H Urine Glucose (UA) 50 H Urine Ketones NEGATIVE Urine Blood SMALL H Urine Nitrite NEGATIVE Ur Leukocyte Esterase LARGE H Urine WBC (Auto) >182 Urine RBC (Auto) 4 02/06/18 02/06/18 16:43 16:43 WBC RBC Hgb Hct MCV MCH MCHC RDW Plt Count Seg Neutrophils % Lymphocytes % Monocytes % Eosinophils % Basophils % Absolute Neutrophils Absolute Lymphocytes Absolute Monocytes Absolute Eosinophils Absolute Basophils VBG pH 7.42 VBG pCO2 43.5 VBG HCO3 27.3 VBG Base Excess 2.4 Sodium Potassium Chloride Carbon Dioxide Anion Gap BUN Creatinine Est GFR ( Amer) Est GFR (Non-Af Amer) Glucose Lactic Acid 2.1 Calcium Total Bilirubin AST ALT Alkaline Phosphatase Total Protein Albumin Urine Color Urine Appearance Urine pH Ur Specific [place] Urine Protein Urine Glucose (UA) Urine Ketones Urine Blood Urine Nitrite Ur Leukocyte Esterase Urine WBC (Auto) Urine RBC (Auto) Assessment & Plan - Diagnosis (1) UTI (urinary tract infection) Is this a current diagnosis for this admission?: Yes Plan: Follow-up on cultures. Continue antibiotics. (2) Absence seizure disorder Qualifiers: Intractability: not intractable Status epilepticus: without status epilepticus Qualified Code(s): G40.A09 - Absence epileptic syndrome, not intractable, without status epilepticus Is this a current diagnosis for this admission?: Yes Plan: Continue outpatient medications. (3) BPH (benign prostatic hyperplasia) Qualifiers: Lower urinary tract symptom presence: symptoms absent Qualified Code(s): N40.0 - Benign prostatic hyperplasia without lower urinary tract symptoms Is this a current diagnosis for this admission?: Yes Plan: Continue outpatient medications. (4) Bimalleolar fracture of left ankle Is this a current diagnosis for this admission?: Yes Plan: Status post surgical treatment in December 2017 (5) Diabetes Qualifiers: Diabetes mellitus type: type 2 Diabetes mellitus snf insulin use: with snf use Diabetes mellitus complication status: without complication Qualified Code(s): E11.9 - Type 2 diabetes mellitus without complications; Z79.4 - alf (current) use of insulin; Z79.4 - lobsterman ( current) use of insulin; Z79.4 - alf (current) use of insulin; Z79.4 - lobsterman (current) use of insulin Is this a current diagnosis for this admission?: Yes Plan: Diabetic diet. Insulin sliding scale. He takes insulin 70/30 80 units with breakfast and 7 units with dinner. (6) HLD (hyperlipidemia) Qualifiers: Hyperlipidemia type: unspecified Qualified Code(s): E78.5 - Hyperlipidemia , unspecified Plan: Continue outpatient meds. (7) HTN (hypertension) Qualifiers: Hypertension type: essential hypertension Qualified Code(s): I10 - Essential (primary) hypertension Is this a current diagnosis for this admission?: Yes Plan: Continue to monitor. Adjust medications as needed. (8) PTSD (post-traumatic stress disorder) Is this a current diagnosis for this admission?: Yes Plan: Continue Prozac (9) Peripheral neuropathy Is this a current diagnosis for this admission?: Yes Plan: Continue gabapentin. (10) Acute renal failure Is this a current diagnosis for this admission?: Yes Plan: IV fluids. Monitor renal function. Avoid nephrotoxic agents. - Time Time Spent: 50 to 70 Minutes
[2018-02-06] MEDS: METOPROLOL TARTRATE 50 MG TABLET PO SCH (19:22)
[2018-02-06] MEDS: PHENYTOIN SODIUM EXTENDED 100 MG CAPSULE PO SCH (21:22)
[2018-02-06] MEDS: TRAZODONE HCL 50 MG TABLET PO SCH (21:22)
[2018-02-06] MEDS: SIMVASTATIN 40 MG TABLET PO SCH (21:23)
[2018-02-06] MEDS: ASPIRIN 325 MG TABLET PO SCH (21:24)
[2018-02-06] MEDS: DIVALPROEX SODIUM 500 MG TAB.SR.24H PO SCH (21:25)
--- NOTE | 2018-02-06 22:59 | EKG REPORT ---
SEVERITY:- ABNORMAL ECG - SINUS TACHYCARDIA LEFT BUNDLE BRANCH BLOCK : Confirmed by: Jasmina Montoya MD 06-Feb-2018 22:58:51
[2018-02-07 05:14] LABS: ABSOLUTE EOSINOPHILS # (AUTO) 0.1 10^3/uL (0.0-0.6); ABSOLUTE LYMPHOCYTES (AUTO) 2.8 10^3/uL (0.5-4.7); ABSOLUTE MONOCYTES (AUTO) 2.1 10^3/uL (0.1-1.4); ABSOLUTE NEUT (AUTO) 11.1 10^3/uL (1.7-8.2); BASOPHILS % (AUTO) 0.2 % (0-2); EOSINOPHILS % (AUTO) 0.9 % (0-6); HEMATOCRIT 27.7 % (37.9-51.0); HEMOGLOBIN 9.4 g/dL (13.5-17.0); LYMPHOCYTES % (AUTO) 17.3 % (13-45); MEAN CORPUSCULAR HEMOGLOBIN 31.9 pg (27.0-33.4); MEAN CORPUSCULAR HGB CONC 33.8 g/dL (32.0-36.0); MEAN CORPUSCULAR VOLUME 94 fl (80-97); MONOCYTES % (AUTO) 13.1 % (3-13); PLATELET COUNT 132 10^3/uL (150-450); RED BLOOD COUNT 2.94 10^6/uL (4.35-5.55); RED CELL DISTRIBUTION WIDTH 13.5 % (11.5-14.0); SEGMENTED NEUTROPHILS % (AUTO) 68.5 % (42-78); TOTAL CELLS COUNTED % (AUTO) 100 %; WHITE BLOOD COUNT 16.2 10^3/uL (4.0-10.5)
[2018-02-07 05:32] LABS: ANION GAP 8 (5-19); BLOOD UREA NITROGEN 19 mg/dL (7-20); CALCIUM 7.7 mg/dL (8.4-10.2); CARBON DIOXIDE 28 mmol/L (22-30); CHLORIDE 104 mmol/L (98-107); GLUCOSE 55 mg/dL (75-110); PHOSPHORUS 3.3 mg/dL (2.5-4.5); SODIUM 140.2 mmol/L (137-145)
[2018-02-07] MEDS: METOPROLOL TARTRATE 50 MG TABLET PO SCH ×2 (06:39→18:20)
[2018-02-07] MEDS: MULTIVITAMIN TABLET PO SCH (07:43)
[2018-02-07] MEDS ORDERED: GLUCAGON,HUMAN RECOMB 1 MG INJ IM PRN (08:06)
[2018-02-07] MEDS ORDERED: DEXTROSE 40% GEL 15 GM TUBE PO PRN ×2 (08:06)
[2018-02-07] MEDS ORDERED: DEXTROSE 50%-WATER 25 GM/50 ML DISP.SYRIN IV PRN ×2 (08:06)
[2018-02-07] MEDS: FLUOXETINE HCL 20 MG CAPSULE PO SCH (09:31)
[2018-02-07] MEDS: GABAPENTIN 300 MG CAPSULE PO SCH ×3 (09:31→18:20)
[2018-02-07] MEDS: LACTOBACILLUS ACIDOPHILUS 250 MG TAB PO SCH ×2 (09:31→18:20)
[2018-02-07] MEDS: ENOXAPARIN SODIUM INJ 30 MG/0.3 ML DISP.SYRIN SUBCUT SCH (09:31)
[2018-02-07] MEDS: MEMANTINE HCL 10 MG TABLET PO SCH ×2 (09:32→18:20)
[2018-02-07] MEDS: TAMSULOSIN HCL 0.4 MG CAP.SR.24H PO SCH (09:32)
[2018-02-07] MEDS: LORATADINE 10 MG TABLET PO SCH (09:32)
[2018-02-07] MEDS: LANSOPRAZOLE 15 MG TAB.RAP.DR PO SCH ×2 (09:32→18:20)
[2018-02-07] MEDS: POLYETHYLENE GLYCOL 3350 POWDER 17 GM/1 PACKET PO SCH (09:35)
[2018-02-07] MEDS: SENNOSIDES/DOCUSATE 8.6-50 MG 1 EACH TABLET PO SCH ×2 (09:35→18:21)
[2018-02-07] MEDS ORDERED: CEFTRIAXONE 1 GM/D5W RTU 1 GM/50 ML RTUPB IV SCH (10:00)
[2018-02-07] MEDS: SILVER SULFADIAZINE 1% CREAM 50 GM TP SCH (10:45)
[2018-02-07] MEDS: CEFTRIAXONE SODIUM 1,000 MG in DEXTROSE 5%-WATER 50 ML IV SCH (10:46)
[2018-02-07] MEDS: INSULIN LISPRO 100 UNIT/ML 3 ML VIAL SUBCUT PRN (12:08)
[2018-02-07] MEDS ORDERED: 1/2 NORMAL SALINE 1,000 ML IV PRN (13:57)
--- NOTE | 2018-02-07 14:14 | PDOC PROGRESS REPORT ---
Subjective Progress Note for:: 02/07/18 Subjective:: Feels better, no complaints Reason For Visit: URINARY TRACT INFECTION,FEVER,LEUKOCYTOSIS Physical Exam Vital Signs: Temp Pulse Resp BP Pulse Ox 98.1 F 73 18 117/49 L 94 02/07/18 11:38 02/07/18 11:38 02/07/18 11:38 02/07/18 11:38 02/07/18 11:38 Intake & Output 02/06/18 02/07/18 02/08/18 06:59 06:59 06:59 Intake Total 1167 Output Total 200 Balance 967 Weight 100.1 kg General appearance: PRESENT: no acute distress Head exam: PRESENT: normocephalic Mouth exam: PRESENT: moist Respiratory exam: PRESENT: symmetrical, unlabored Cardiovascular exam: PRESENT: RRR GI/Abdominal exam: PRESENT: normal bowel sounds, soft Rectal exam: PRESENT: deferred Gentrourinary exam: ABSENT: indwelling catheter Extremities exam: ABSENT: pedal edema Neurological exam: PRESENT: alert, awake, oriented to person, oriented to time, oriented to situation Psychiatric exam: PRESENT: appropriate affect Results Laboratory Results: 02/07/18 04:09 02/07/18 04:09 02/06/18 02/07/18 02/07/18 20:45 04:09 04:09 WBC 16.2 H RBC 2.94 L Hgb 9.4 L Hct 27.7 L MCV 94 MCH 31.9 MCHC 33.8 RDW 13.5 Plt Count 132 L Seg Neutrophils % 68.5 Lymphocytes % 17.3 Monocytes % 13.1 H Eosinophils % 0.9 Basophils % 0.2 Absolute Neutrophils 11.1 H Absolute Lymphocytes 2.8 Absolute Monocytes 2.1 H Absolute Eosinophils 0.1 Absolute Basophils 0.0 Sodium 140.2 Potassium 4.0 Chloride 104 Carbon Dioxide 28 Anion Gap 8 BUN 19 Creatinine 1.18 Est GFR ( Amer) > 60 Est GFR (Non-Af Amer) > 60 Glucose 55 L Lactic Acid 2.1 Calcium 7.7 L Phosphorus 3.3 Magnesium 2.1 TSH 02/07/18 04:09 WBC RBC Hgb Hct MCV MCH MCHC RDW Plt Count Seg Neutrophils % Lymphocytes % Monocytes % Eosinophils % Basophils % Absolute Neutrophils Absolute Lymphocytes Absolute Monocytes Absolute Eosinophils Absolute Basophils Sodium Potassium Chloride Carbon Dioxide Anion Gap BUN Creatinine Est GFR ( Amer) Est GFR (Non-Af Amer) Glucose Lactic Acid Calcium Phosphorus Magnesium TSH 4.73 H 02/07/18 04:09 NT-Pro-B Natriuret Pep 3180 H Assessment & Plan - Diagnosis (1) Acute renal failure Is this a current diagnosis for this admission?: Yes Plan: Improving with IV fluids. Monitor renal function. Avoid nephrotoxic agents. (2) UTI (urinary tract infection) Is this a current diagnosis for this admission?: Yes Plan: Follow-up on cultures. day 2 antibiotics. (3) Absence seizure disorder Qualifiers: Intractability: not intractable Status epilepticus: without status epilepticus Qualified Code(s): G40.A09 - Absence epileptic syndrome, not intractable, without status epilepticus Is this a current diagnosis for this admission?: Yes Plan: Continue outpatient medications. (4) BPH (benign prostatic hyperplasia) Qualifiers: Lower urinary tract symptom presence: symptoms absent Qualified Code(s): N40.0 - Benign prostatic hyperplasia without lower urinary tract symptoms Is this a current diagnosis for this admission?: Yes Plan: Continue Flomax (5) Bimalleolar fracture of left ankle Is this a current diagnosis for this admission?: Yes Plan: Status post surgical treatment in December 2017 (6) Diabetes Qualifiers: Diabetes mellitus type: type 2 Diabetes mellitus terminal press operator insulin use: with senior care use Diabetes mellitus complication status: without complication Qualified Code(s): E11.9 - Type 2 diabetes mellitus without complications; Z79.4 - bed bug exterminator (current) use of insulin; Z79.4 - shelter ( current) use of insulin; Z79.4 - bed bug exterminator (current) use of insulin; Z79.4 - bed bug exterminator (current) use of insulin Is this a current diagnosis for this admission?: Yes Plan: Diabetic diet. Insulin sliding scale. He takes insulin NPH 80 units with breakfast and 70 units with dinner. (7) HLD (hyperlipidemia) Qualifiers: Hyperlipidemia type: unspecified Qualified Code(s): E78.5 - Hyperlipidemia , unspecified Is this a current diagnosis for this admission?: Yes Plan: Continue outpatient meds. (8) HTN (hypertension) Qualifiers: Hypertension type: essential hypertension Qualified Code(s): I10 - Essential (primary) hypertension Is this a current diagnosis for this admission?: Yes Plan: Continue to monitor. Adjust medications as needed. Metoprolol dose reduced to 12.5 mg PO Q12h for low normal BP (9) PTSD (post-traumatic stress disorder) Is this a current diagnosis for this admission?: Yes Plan: Continue Prozac (10) Peripheral neuropathy Is this a current diagnosis for this admission?: Yes Plan: Continue gabapentin. (11) Dementia Qualifiers: Dementia type: unspecified type Is this a current diagnosis for this admission?: Yes Plan: On Namenda - Time Time Spent with patient: 25-34 minutes
[2018-02-07] MEDS: SIMVASTATIN 40 MG TABLET PO SCH (21:49)
[2018-02-07] MEDS: TRAZODONE HCL 50 MG TABLET PO SCH (21:49)
[2018-02-07] MEDS: DIVALPROEX SODIUM 500 MG TAB.SR.24H PO SCH (21:49)
[2018-02-07] MEDS: ASPIRIN 325 MG TABLET PO SCH (21:49)
[2018-02-07] MEDS: PHENYTOIN SODIUM EXTENDED 100 MG CAPSULE PO SCH (21:49)
[2018-02-08] MEDS: MULTIVITAMIN TABLET PO SCH (04:02)
[2018-02-08] MEDS: METOPROLOL TARTRATE 50 MG TABLET PO SCH ×2 (04:03→19:06)
[2018-02-08] MEDS ORDERED: RINGERS SOLUTION,LACTATED 1,000 ML IV PRN (04:46)
[2018-02-08] MEDS: ENOXAPARIN SODIUM INJ 30 MG/0.3 ML DISP.SYRIN SUBCUT SCH (09:23)
[2018-02-08] MEDS: LORATADINE 10 MG TABLET PO SCH (09:23)
[2018-02-08] MEDS: LACTOBACILLUS ACIDOPHILUS 250 MG TAB PO SCH ×2 (09:24→17:49)
[2018-02-08] MEDS: MEMANTINE HCL 10 MG TABLET PO SCH ×2 (09:24→17:49)
[2018-02-08] MEDS: GABAPENTIN 300 MG CAPSULE PO SCH ×3 (09:24→17:49)
[2018-02-08] MEDS: TAMSULOSIN HCL 0.4 MG CAP.SR.24H PO SCH (09:24)
[2018-02-08] MEDS: LANSOPRAZOLE 15 MG TAB.RAP.DR PO SCH ×2 (09:24→17:48)
[2018-02-08] MEDS: SILVER SULFADIAZINE 1% CREAM 50 GM TP SCH (09:25)
[2018-02-08] MEDS: FLUOXETINE HCL 20 MG CAPSULE PO SCH (09:25)
[2018-02-08] MEDS: CEFTRIAXONE SODIUM 1,000 MG in DEXTROSE 5%-WATER 50 ML IV SCH (09:26)
[2018-02-08] MEDS: POLYETHYLENE GLYCOL 3350 POWDER 17 GM/1 PACKET PO SCH (09:27)
[2018-02-08] MEDS: SENNOSIDES/DOCUSATE 8.6-50 MG 1 EACH TABLET PO SCH ×2 (09:27→17:50)
--- NOTE | 2018-02-08 16:42 | PDOC PROGRESS REPORT ---
Subjective Progress Note for:: 02/08/18 Subjective:: No complaints at present. Urine culture pending. Reason For Visit: URINARY TRACT INFECTION,FEVER,LEUKOCYTOSIS Physical Exam Vital Signs: Temp Pulse Resp BP Pulse Ox 99.8 F 81 16 120/59 L 97 02/08/18 11:28 02/08/18 11:28 02/08/18 11:28 02/08/18 11:28 02/08/18 11:28 Intake & Output 02/07/18 02/08/18 02/09/18 06:59 06:59 06:59 Intake Total 1167 2393 Output Total 200 1075 Balance 967 1318 Weight 100.1 kg 100.2 kg General appearance: PRESENT: no acute distress Mouth exam: PRESENT: moist Respiratory exam: PRESENT: symmetrical, unlabored GI/Abdominal exam: PRESENT: soft. ABSENT: tenderness Rectal exam: PRESENT: deferred Gentrourinary exam: ABSENT: indwelling catheter Musculoskeletal exam: PRESENT: other - L ankle external fixators Neurological exam: PRESENT: alert, awake, oriented to person, oriented to place , oriented to time, oriented to situation Psychiatric exam: PRESENT: appropriate affect Results Laboratory Results: 02/07/18 04:09 02/07/18 04:09 02/07/18 04:09 NT-Pro-B Natriuret Pep 3180 H Assessment & Plan - Diagnosis (1) Acute renal failure Is this a current diagnosis for this admission?: Yes Plan: Improving. Avoid Nephrotoxic agents. (2) UTI (urinary tract infection) Is this a current diagnosis for this admission?: Yes Plan: Follow-up on cultures. Day 3 of Rocephin. (3) Absence seizure disorder Qualifiers: Intractability: not intractable Status epilepticus: without status epilepticus Qualified Code(s): G40.A09 - Absence epileptic syndrome, not intractable, without status epilepticus Is this a current diagnosis for this admission?: Yes Plan: Continue outpatient medications. (4) BPH (benign prostatic hyperplasia) Qualifiers: Lower urinary tract symptom presence: symptoms absent Qualified Code(s): N40.0 - Benign prostatic hyperplasia without lower urinary tract symptoms Is this a current diagnosis for this admission?: Yes Plan: Continue Flomax (5) Bimalleolar fracture of left ankle Is this a current diagnosis for this admission?: Yes Plan: Status post surgical treatment in December 2017. Will request an Orthopedic evaluation. (6) Diabetes Qualifiers: Diabetes mellitus type: type 2 Diabetes mellitus snf insulin use: with termite inspector use Diabetes mellitus complication status: without complication Qualified Code(s): E11.9 - Type 2 diabetes mellitus without complications; Z79.4 - termite helper (current) use of insulin; Z79.4 - correction ( current) use of insulin; Z79.4 - correction (current) use of insulin; Z79.4 - correction (current) use of insulin Is this a current diagnosis for this admission?: Yes Plan: Diabetic diet. Insulin sliding scale. He takes insulin NPH 80 units with breakfast and 70 units with dinner. Doses are being adjusted for blood glucose levels since he is eating less carbs in the hospital. (7) HLD (hyperlipidemia) Qualifiers: Hyperlipidemia type: unspecified Qualified Code(s): E78.5 - Hyperlipidemia , unspecified Is this a current diagnosis for this admission?: Yes Plan: Continue outpatient meds. (8) HTN (hypertension) Qualifiers: Hypertension type: essential hypertension Qualified Code(s): I10 - Essential (primary) hypertension Is this a current diagnosis for this admission?: Yes Plan: Continue to monitor. Adjust medications as needed. Metoprolol dose reduced to 12.5 mg PO Q12h for low normal BP (9) PTSD (post-traumatic stress disorder) Is this a current diagnosis for this admission?: Yes Plan: Continue Prozac (10) Peripheral neuropathy Is this a current diagnosis for this admission?: Yes Plan: Continue Gabapentin. (11) Dementia Qualifiers: Dementia type: unspecified type Is this a current diagnosis for this admission?: Yes Plan: On Namenda - Time Time Spent with patient: 25-34 minutes
[2018-02-08] MEDS: INSULIN LISPRO 100 UNIT/ML 3 ML VIAL SUBCUT PRN (17:49)
[2018-02-08] MEDS: PHENYTOIN SODIUM EXTENDED 100 MG CAPSULE PO SCH (21:22)
[2018-02-08] MEDS: ASPIRIN 325 MG TABLET PO SCH (21:22)
[2018-02-08] MEDS: DIVALPROEX SODIUM 500 MG TAB.SR.24H PO SCH (21:22)
[2018-02-08] MEDS: TRAZODONE HCL 50 MG TABLET PO SCH (21:22)
[2018-02-08] MEDS: SIMVASTATIN 40 MG TABLET PO SCH (21:22)
[2018-02-09 05:37] LABS: ABSOLUTE EOSINOPHILS # (AUTO) 0.3 10^3/uL (0.0-0.6); ABSOLUTE LYMPHOCYTES (AUTO) 1.8 10^3/uL (0.5-4.7); ABSOLUTE MONOCYTES (AUTO) 0.9 10^3/uL (0.1-1.4); ABSOLUTE NEUT (AUTO) 4.3 10^3/uL (1.7-8.2); BASOPHILS % (AUTO) 0.4 % (0-2); EOSINOPHILS % (AUTO) 3.4 % (0-6); HEMATOCRIT 29.5 % (37.9-51.0); HEMOGLOBIN 10.3 g/dL (13.5-17.0); LYMPHOCYTES % (AUTO) 25.3 % (13-45); MEAN CORPUSCULAR HEMOGLOBIN 32.2 pg (27.0-33.4); MEAN CORPUSCULAR HGB CONC 34.9 g/dL (32.0-36.0); MEAN CORPUSCULAR VOLUME 92 fl (80-97); MONOCYTES % (AUTO) 11.8 % (3-13); PLATELET COUNT 154 10^3/uL (150-450); RED CELL DISTRIBUTION WIDTH 13.2 % (11.5-14.0); SEGMENTED NEUTROPHILS % (AUTO) 59.1 % (42-78); TOTAL CELLS COUNTED % (AUTO) 100 %; WHITE BLOOD COUNT 7.3 10^3/uL (4.0-10.5)
[2018-02-09 06:10] LABS: ALANINE AMINOTRANSFERASE 21 U/L (21-72); ALBUMIN 2.8 g/dL (3.5-5.0); ALKALINE PHOSPHATASE 69 U/L (38-126); ANION GAP 11 (5-19); ASPARTATE AMINO TRANSFERASE 20 U/L (17-59); BILIRUBIN,DIRECT 0.3 mg/dL (0.0-0.4); BILIRUBIN,TOTAL 0.3 mg/dL (0.2-1.3); BLOOD UREA NITROGEN 10 mg/dL (7-20); CALCIUM 7.9 mg/dL (8.4-10.2); CARBON DIOXIDE 26 mmol/L (22-30); CHLORIDE 104 mmol/L (98-107); GLUCOSE 180 mg/dL (75-110); POTASSIUM 4.2 mmol/L (3.6-5.0); SODIUM 140.6 mmol/L (137-145); TOTAL PROTEIN 5.3 g/dL (6.3-8.2)
[2018-02-09] MEDS: METOPROLOL TARTRATE 50 MG TABLET PO SCH (06:30)
--- NOTE | 2018-02-09 06:46 | PDOC CONSULTATION ---
Consultation Consult Date: 02/09/18 Consult reason:: Left ankle fracture History of Present Illness Admission Date/PCP: 02/06/18 18:47 KAYLA FIGUEROA MD History of Present Illness: PATRICE SHORT JR is a 72 year old male status post a fall with a left trimalleolar ankle fracture. Patient was treated with an external fixator which is unusual but was chosen because of poor skin condition associated with the fracture. Past Medical History Cardiac Medical History: Reports: Congestive Heart Failure, Coronary Artery Disease, Myocardial Infarction - 1994 - cabg x 4 , Hyperlipidema, Hypertension - ON MEDS Pulmonary Medical History: Reports: Bronchitis - hx of , Pneumonia - 1994 Neurological Medical History: Reports: Seizures - ABSENCE FOR 15 YRS- LAST SZ 15YRS AGO Endocrine Medical History: Reports: Diabetes Mellitus Type 1, Diabetes Mellitus Type 2 GI Medical History: Reports: Gastroesophageal Reflux Disease, Hiatal Hernia Musculoskeltal Medical History: Reports: Arthritis Psychiatric Medical History: Reports: Depression, Post Traumatic Stress Disorder Past Surgical History Past Surgical History: Reports: Cholecystectomy, Coronary Artery Bypass Graft - x 4, Orthopedic Surgery - carpal tunnel, left ankle fracture, Vascular Surgery, Other - Shrapnel removal from abdomen Social History Information Source: Patient, DrGrey Hdz, [facility] Records Smoking Status: Never Smoker Frequency of Alcohol Use: None Hx Recreational Drug Use: No Drugs: None Hx Prescription Drug Abuse: No - Advance Directive Resuscitation Status: Do Not Resuscitate Family History Family History: CAD, DM, Malignancy - Father-renal carcinoma, Other - HTN Parental Family History Reviewed: No Children Family History Reviewed: No Sibling(s) Family History Reviewed.: No Medication/Allergy Home Medications: Aspirin [Aspirin 325 mg Tablet] 325 mg PO QHS 06/04/13 Memantine HCl [Namenda 10 mg Tablet] 10 mg PO Q12 06/04/13 NPH, Human Insulin Isophane [Novolin N (NPH) Insulin 100 unit/mL] 80 unit SUBCUT Q12 06/04/13 Omeprazole 20 mg PO BID 06/04/13 Phenytoin Sodium Extended [Dilantin] 300 mg PO QHS 06/04/13 Trazodone HCl 100 mg PO QHS 06/04/13 Simvastatin [Zocor 80 mg Tablet] 80 mg PO QHS 06/08/15 Fluoxetine HCl [Prozac 20 mg Capsule] 40 mg PO DAILY 01/06/18 Gabapentin 300 mg PO Q8 01/06/18 Loratadine [Claritin] 10 mg PO DAILY 01/06/18 Tamsulosin HCl 0.4 mg PO DAILY 01/06/18 Tramadol HCl [Ultram 50 mg Tablet] 50 mg PO Q8HP PRN 01/06/18 Divalproex Sodium [Depakote ER 500 mg Tab.sr] 1,500 mg PO QHS #14 tab.sr.24h 02/24 Polyethylene Glycol 3350 [Miralax Powder 17 gm/Packet] 17 gm PO DAILYP PRN #14 powd.pack 01/14/18 Sennosides/Docusate 8.6-50 mg [Senna Plus Tablet] 2 each PO BID #60 tablet 01/14 Cephalexin Monohydrate [Keflex 500 mg Capsule] 500 mg PO Q8 MDD for 7days started 02/0602/07/18 Meclizine HCl [Antivert 25 mg Tablet] 25 mg PO Q8HP PRN 02/07/18 Metoprolol Tartrate [Lopressor 25 mg Tablet] 25 mg PO Q12 02/07/18 Multivitamin [Tab-A-Marvel (Multiple Vitamin) Tablet] 1 tab PO DAILY 02/07/18 Allergies/Adverse Reactions: paroxetine HCl [From Paxil] Allergy (Unknown, Verified 01/06/18 11:53) Hives mushroom Allergy (Verified 01/06/18 11:53) naproxen [From Naprosyn] Allergy (Verified 01/06/18 11:53) Hives cabbage Adverse Reaction (Mild, Verified 01/06/18 11:53) Review of Systems All systems: as per H Physical Exam Vital Signs: Temp Pulse Resp BP Pulse Ox 36.8 C 82 15 115/50 L 95 02/09/18 03:29 02/09/18 03:29 02/09/18 03:29 02/09/18 03:29 02/09/18 03:29 Intake & Output 02/07/18 02/08/18 02/09/18 06:59 06:59 06:59 Intake Total 1167 2393 2286 Output Total 200 1075 850 Balance 967 1318 1436 Weight 100.1 kg 100.2 kg 99.7 kg Physical Exam: Obese middle-aged white male lying in bed with minimal discomfort.. Patient is alert oriented and appropriate. General appearance: PRESENT: no acute distress Head exam: PRESENT: normocephalic Respiratory exam: PRESENT: unlabored Cardiovascular exam: PRESENT: RRR Pulses: PRESENT: +1 pedal pulses bilateral GI/Abdominal exam: PRESENT: soft Rectal exam: PRESENT: deferred Extremities exam: PRESENT: other - Left lower extremity immobilized in a external fixator. Pin tracks currently are clean dry and without evidence of cellulitis. Neurological exam: PRESENT: alert, awake, oriented to person, oriented to place , oriented to time, oriented to situation. ABSENT: motor sensory deficit Psychiatric exam: PRESENT: appropriate affect, normal mood. ABSENT: homicidal ideation, suicidal ideation Skin exam: PRESENT: dry, intact, warm. ABSENT: cyanosis, rash Results Laboratory Results: 02/09/18 04:33 02/09/18 04:33 02/09/18 02/09/18 04:33 04:33 WBC 7.3 RBC 3.20 L Hgb 10.3 L Hct 29.5 L MCV 92 MCH 32.2 MCHC 34.9 RDW 13.2 Plt Count 154 Seg Neutrophils % 59.1 Lymphocytes % 25.3 Monocytes % 11.8 Eosinophils % 3.4 Basophils % 0.4 Absolute Neutrophils 4.3 Absolute Lymphocytes 1.8 Absolute Monocytes 0.9 Absolute Eosinophils 0.3 Absolute Basophils 0.0 Sodium 140.6 Potassium 4.2 Chloride 104 Carbon Dioxide 26 Anion Gap 11 BUN 10 Creatinine 0.80 Est GFR ( Amer) > 60 Est GFR (Non-Af Amer) > 60 Glucose 180 H Calcium 7.9 L Phosphorus 3.0 Magnesium 2.0 Total Bilirubin 0.3 AST 20 ALT 21 Alkaline Phosphatase 69 Total Protein 5.3 L Albumin 2.8 L 02/07/18 04:09 NT-Pro-B Natriuret Pep 3180 H Status: Imported from PACS Assessment & Plan - Diagnosis (1) Bimalleolar fracture of left ankle Qualifiers: Encounter type: subsequent encounter Fracture type: closed Fracture healing: with routine healing Qualified Code(s): S82.842D - Displaced bimalleolar fracture of left lower leg, subsequent encounter for closed fracture with routine healing Is this a current diagnosis for this admission?: Yes Plan: Orders left on the chart for ongoing pin tract care. Patient can be mobilized with physical therapy on a touchdown weightbearing restriction on the left lower extremity. - Time Time Spent: 50 to 70 Minutes Anticipated discharge: Home with Homehealth Within: Other
[2018-02-09] MEDS ORDERED: INSULIN NPH (ISOPHANE), HUMAN 100 UNIT/ML 3 ML SUBCUT SCH (08:00)
[2018-02-09] MEDS: MULTIVITAMIN TABLET PO SCH (09:43)
[2018-02-09] MEDS: ENOXAPARIN SODIUM INJ 30 MG/0.3 ML DISP.SYRIN SUBCUT SCH (09:45)
[2018-02-09] MEDS: FLUOXETINE HCL 20 MG CAPSULE PO SCH (09:46)
[2018-02-09] MEDS: LANSOPRAZOLE 15 MG TAB.RAP.DR PO SCH ×2 (09:46→18:24)
[2018-02-09] MEDS: GABAPENTIN 300 MG CAPSULE PO SCH ×3 (09:47→18:24)
[2018-02-09] MEDS: LACTOBACILLUS ACIDOPHILUS 250 MG TAB PO SCH ×2 (09:49→18:24)
[2018-02-09] MEDS: MEMANTINE HCL 10 MG TABLET PO SCH ×2 (09:52→18:25)
[2018-02-09] MEDS: LORATADINE 10 MG TABLET PO SCH (09:53)
[2018-02-09] MEDS: POLYETHYLENE GLYCOL 3350 POWDER 17 GM/1 PACKET PO SCH (09:54)
[2018-02-09] MEDS: SENNOSIDES/DOCUSATE 8.6-50 MG 1 EACH TABLET PO SCH ×2 (09:55→18:29)
[2018-02-09] MEDS: TAMSULOSIN HCL 0.4 MG CAP.SR.24H PO SCH (09:55)
[2018-02-09] MEDS: SILVER SULFADIAZINE 1% CREAM 50 GM TP SCH (09:56)
[2018-02-09] MEDS ORDERED: CIPROFLOXACIN HCL 500 MG TABLET PO SCH (10:00)
--- NOTE | 2018-02-09 12:53 | PDOC TRANSFER SUMMARY ---
General - Admit/Disc Date/PCP Admission Date/Primary Care Provider: 02/06/18 18:47 KAYLA FIGUEROA MD Discharge Date: 02/09/18 - Discharge Diagnosis (1) Acute renal failure Is this a current diagnosis for this admission?: Yes (2) UTI (urinary tract infection) Is this a current diagnosis for this admission?: Yes (3) Absence seizure disorder Is this a current diagnosis for this admission?: Yes (4) BPH (benign prostatic hyperplasia) Is this a current diagnosis for this admission?: Yes (5) Bimalleolar fracture of left ankle Is this a current diagnosis for this admission?: Yes (6) Diabetes Is this a current diagnosis for this admission?: Yes (7) HLD (hyperlipidemia) Is this a current diagnosis for this admission?: Yes (8) HTN (hypertension) Is this a current diagnosis for this admission?: Yes (9) PTSD (post-traumatic stress disorder) Is this a current diagnosis for this admission?: Yes (10) Peripheral neuropathy Is this a current diagnosis for this admission?: Yes (11) Dementia Is this a current diagnosis for this admission?: Yes - Additional Information Resuscitation Status: Do Not Resuscitate Discharge Diet: Diabetic Discharge Activity: Activity As Tolerated, Other - L ankle no weight bearing Home Medications: Aspirin [Aspirin 325 mg Tablet] 325 mg PO QHS 06/04/13 Memantine HCl [Namenda 10 mg Tablet] 10 mg PO Q12 06/04/13 Omeprazole 20 mg PO BID 06/04/13 Phenytoin Sodium Extended [Dilantin] 300 mg PO QHS 06/04/13 Trazodone HCl 100 mg PO QHS 06/04/13 Simvastatin [Zocor 80 mg Tablet] 80 mg PO QHS 06/08/15 Fluoxetine HCl [Prozac 20 mg Capsule] 40 mg PO DAILY 01/06/18 Gabapentin 300 mg PO Q8 01/06/18 Loratadine [Claritin] 10 mg PO DAILY 01/06/18 Tamsulosin HCl 0.4 mg PO DAILY 01/06/18 Tramadol HCl [Ultram 50 mg Tablet] 50 mg PO Q8HP PRN 01/06/18 Divalproex Sodium [Depakote ER 500 mg Tab.sr] 1,500 mg PO QHS #14 tab.sr.24h 02/24 Polyethylene Glycol 3350 [Miralax Powder 17 gm/Packet] 17 gm PO DAILYP PRN #14 powd.pack 01/14/18 Sennosides/Docusate 8.6-50 mg [Senna Plus Tablet] 2 each PO BID #60 tablet 01/14 Meclizine HCl [Antivert 25 mg Tablet] 25 mg PO Q8HP PRN 02/07/18 Metoprolol Tartrate [Lopressor 25 mg Tablet] 25 mg PO Q12 02/07/18 Multivitamin [Tab-A-Marvel (Multiple Vitamin) Tablet] 1 tab PO DAILY 02/07/18 Ciprofloxacin HCl [Cipro 500 mg Tablet] 500 mg PO Q12 10 Days tablet 02/09/18 Dextrose [Glutose 40% Gel 15 gm Tube] 15 gm PO PRN PRN tube 02/09/18 Dextrose [Glutose 40% Gel 15 gm Tube] 30 gm PO PRN PRN tube 02/09/18 Glucagon,Human Recombinant [Glucagen Inj 1 mg Vial] 1 mg IM PRN PRN vial Insulin Lispro [Humalog Insulin (Lispro) 100 unit/mL] 0 - 12 unit SUBCUT ACP PRN unit 02/09/18 Lactobacillus Acidophilus [Bacid 250 mg Tablet] 500 mg PO BID tab 02/09/18 Meclizine HCl [Antivert 25 mg Tablet] 25 mg PO TIDP PRN tablet 02/09/18 Multivitamin [Tab-A-Marvel (Multiple Vitamin) Tablet] 1 tab PO QAM tablet NPH, Human Insulin Isophane [Humulin N (NPH) Insulin 100 unit/mL] 10 unit SUBCUT ACBRKFST unit 02/09/18 Silver Sulfadiazine [Silvadene 1% Cream 50 gm] 1 applic TP DAILY tube 02/09/18 History of Present Illness Admission Date/PCP: 02/06/18 18:47 KAYLA FIGUEROA MD History of Present Illness: PATRICE SHORT JR is a 72 year old male with a past medical history of Benign prostatic hypertrophy Diabetes Hypertension Hyperlipidemia PTSD Bimalleolar left ankle fracture-in rehab status post surgery and external fixator. Dementia Peripheral neuropathy Coronary artery disease Echocardiogram done in December 2017 showed a left ventricular ejection fraction of 65%. He presented to the emergency room with fever. The patient had been recently treated with a course of Bactrim for UTI. He presented in the hospital on February 06 with symptoms of UTI, and [facility] On the day of admission he was found to have high-grade fevers, leukocytosis and acute renal failure. He was treated with IV fluids and antibiotics and referred for admission. Healthcare power of contracts attorney is his . Patient requests to be a DO NOT RESUSCITATE. The patient was seen by Dr. Krishna Mclaughlin from the orthopedic service to evaluate his left ankle. He recommended: "CLEAN EXTERNAL FIXATION PIN SITES WITH PEROXIDE AND APPLY ANTIBIOTIC OINTMENT EACH SHIFT. Patient can be mobilized with physical therapy on a touchdown weightbearing restriction on the left lower extremity." Urine culture grew Pseudomonas sensitive to quinolones. The patient was started on ciprofloxacin he is to complete a 10 day course. He is stable and ready for discharge. He usually takes 80 units of NPH with breakfast and 7 units at bedtime. However his blood sugars have been in the 140s with only 10 units of NPH once a day with breakfast. The patient and his feel that this is most likely because he is on a restricted carbohydrate diet in the hospital. Insulin dosages will have to be adjusted based on his blood sugars. Hospital Course Hospital Course: As above. Physical Exam Vital Signs: Temp Pulse Resp BP Pulse Ox 98.9 F 75 18 149/55 H 98 02/09/18 08:00 02/09/18 08:00 02/09/18 08:00 02/09/18 08:00 02/09/18 08:00 Intake & Output 02/08/18 02/09/18 02/10/18 06:59 06:59 06:59 Intake Total 2393 2286 Output Total 1075 850 Balance 1318 1436 Weight 100.2 kg 99.7 kg General appearance: PRESENT: no acute distress, well-developed, well-nourished Head exam: PRESENT: normocephalic Respiratory exam: PRESENT: symmetrical, unlabored Results Laboratory Results: 02/09/18 04:33 02/09/18 04:33 02/09/18 02/09/18 04:33 04:33 WBC 7.3 RBC 3.20 L Hgb 10.3 L Hct 29.5 L MCV 92 MCH 32.2 MCHC 34.9 RDW 13.2 Plt Count 154 Seg Neutrophils % 59.1 Lymphocytes % 25.3 Monocytes % 11.8 Eosinophils % 3.4 Basophils % 0.4 Absolute Neutrophils 4.3 Absolute Lymphocytes 1.8 Absolute Monocytes 0.9 Absolute Eosinophils 0.3 Absolute Basophils 0.0 Sodium 140.6 Potassium 4.2 Chloride 104 Carbon Dioxide 26 Anion Gap 11 BUN 10 Creatinine 0.80 Est GFR ( Amer) > 60 Est GFR (Non-Af Amer) > 60 Glucose 180 H Calcium 7.9 L Phosphorus 3.0 Magnesium 2.0 Total Bilirubin 0.3 AST 20 ALT 21 Alkaline Phosphatase 69 Total Protein 5.3 L Albumin 2.8 L 02/07/18 04:09 NT-Pro-B Natriuret Pep 3180 H Qualifiers - * PATIENT BEING DISCHARGED WITH ANY OF THE FOLLOWING DIAGNOSIS: No Plan Time Spent: Greater than 30 Minutes
[2018-02-09] MEDS: INSULIN LISPRO 100 UNIT/ML 3 ML VIAL SUBCUT PRN ×2 (12:54→13:02)
--- NOTE | 2018-02-09 16:34 | PDOC PROGRESS REPORT ---
Subjective Progress Note for:: 02/09/18 Subjective:: The patient is a 72 year old gentleman with a past medical history of Benign prostatic hypertrophy Diabetes Hypertension Hyperlipidemia PTSD Bimalleolar left ankle fracture-in rehab status post surgery and external fixator. Dementia Peripheral neuropathy Coronary artery disease Echocardiogram done in December 2017 showed a left ventricular ejection fraction of 65%. He presented to the emergency room with fever. The patient had been recently treated with a course of Bactrim for UTI. He presented in the hospital on February 06 with symptoms of UTI, and was [facility]. On the day of admission he was found to have high-grade fevers, leukocytosis and acute renal failure. He was treated with IV fluids and antibiotics and referred for admission. Healthcare power of real estate attorney is his . Patient requests to be a DO NOT RESUSCITATE. The patient was seen by Dr. Krishna Mclaughlin from the orthopedic service to evaluate his left ankle. He recommended: "CLEAN EXTERNAL FIXATION PIN SITES WITH PEROXIDE AND APPLY ANTIBIOTIC OINTMENT EACH SHIFT. Patient can be mobilized with physical therapy on a touchdown weightbearing restriction on the left lower extremity." Urine culture grew Pseudomonas sensitive to quinolones. He has been started on ciprofloxacin he is to complete a 10 day course. He is stable and ready for discharge, but I was notified by discharge planners that they are unable to get in touch with the rehab facility. He usually takes 80 units of NPH with breakfast and 7 units at bedtime. However his blood sugars have been in the 140s with only 10 units of NPH once a day with breakfast. The patient and his feel that this is most likely because he is on a restricted carbohydrate diet in the hospital. Reason For Visit: UTI Physical Exam Vital Signs: Temp Pulse Resp BP Pulse Ox 98.5 F 79 18 136/77 H 98 02/09/18 15:21 02/09/18 15:21 02/09/18 15:21 02/09/18 15:21 02/09/18 15:21 Intake & Output 02/08/18 02/09/18 02/10/18 06:59 06:59 06:59 Intake Total 2393 2286 Output Total 1075 850 Balance 1318 1436 Weight 100.2 kg 99.7 kg General appearance: PRESENT: no acute distress, well-developed, well-nourished Head exam: PRESENT: normocephalic Ear exam: PRESENT: normal external ear exam Respiratory exam: PRESENT: symmetrical, unlabored Cardiovascular exam: PRESENT: RRR GI/Abdominal exam: PRESENT: normal bowel sounds, soft. ABSENT: tenderness Rectal exam: PRESENT: deferred Musculoskeletal exam: PRESENT: other - Left ankle external fixator Neurological exam: PRESENT: alert, awake, oriented to person, oriented to place , oriented to time, oriented to situation Psychiatric exam: PRESENT: appropriate affect Results Laboratory Results: 02/09/18 04:33 02/09/18 04:33 02/09/18 02/09/18 04:33 04:33 WBC 7.3 RBC 3.20 L Hgb 10.3 L Hct 29.5 L MCV 92 MCH 32.2 MCHC 34.9 RDW 13.2 Plt Count 154 Seg Neutrophils % 59.1 Lymphocytes % 25.3 Monocytes % 11.8 Eosinophils % 3.4 Basophils % 0.4 Absolute Neutrophils 4.3 Absolute Lymphocytes 1.8 Absolute Monocytes 0.9 Absolute Eosinophils 0.3 Absolute Basophils 0.0 Sodium 140.6 Potassium 4.2 Chloride 104 Carbon Dioxide 26 Anion Gap 11 BUN 10 Creatinine 0.80 Est GFR ( Amer) > 60 Est GFR (Non-Af Amer) > 60 Glucose 180 H Calcium 7.9 L Phosphorus 3.0 Magnesium 2.0 Total Bilirubin 0.3 AST 20 ALT 21 Alkaline Phosphatase 69 Total Protein 5.3 L Albumin 2.8 L 02/07/18 04:09 NT-Pro-B Natriuret Pep 3180 H Assessment & Plan - Diagnosis (1) Acute renal failure Is this a current diagnosis for this admission?: Yes Plan: Improving. Avoid Nephrotoxic agents. (2) UTI (urinary tract infection) Is this a current diagnosis for this admission?: Yes Plan: Urine culture grew Pseudomonas. I considered starting him on a quinolone however there is concern for lowering the seizure threshold. Rocephin has been switched to Fortaz. Blood cultures have been negative. (3) Absence seizure disorder Qualifiers: Intractability: not intractable Status epilepticus: without status epilepticus Qualified Code(s): G40.A09 - Absence epileptic syndrome, not intractable, without status epilepticus Is this a current diagnosis for this admission?: Yes Plan: Continue Depakote and Dilantin (4) BPH (benign prostatic hyperplasia) Qualifiers: Lower urinary tract symptom presence: symptoms absent Qualified Code(s): N40.0 - Benign prostatic hyperplasia without lower urinary tract symptoms Is this a current diagnosis for this admission?: Yes Plan: Continue Flomax (5) Bimalleolar fracture of left ankle Qualifiers: Encounter type: subsequent encounter Fracture type: closed Fracture healing: with routine healing Qualified Code(s): S82.842D - Displaced bimalleolar fracture of left lower leg, subsequent encounter for closed fracture with routine healing Is this a current diagnosis for this admission?: Yes Plan: Status post surgical treatment in December 2017. Dr. Mclaughlin's input appreciated. Continue to follow his recommendations for external fixator care. (6) Diabetes Qualifiers: Diabetes mellitus type: type 2 Diabetes mellitus fairing man insulin use: with correction use Diabetes mellitus complication status: without complication Qualified Code(s): E11.9 - Type 2 diabetes mellitus without complications; Z79.4 - longterm (current) use of insulin; Z79.4 - senior restaurant manager ( current) use of insulin; Z79.4 - senior restaurant manager (current) use of insulin; Z79.4 - longterm (current) use of insulin Is this a current diagnosis for this admission?: Yes Plan: Diabetic diet. Insulin sliding scale. He takes insulin NPH 80 units with breakfast and 70 units with dinner. Doses are being adjusted for blood glucose levels since he is eating less carbs in the hospital. (7) HLD (hyperlipidemia) Qualifiers: Hyperlipidemia type: unspecified Qualified Code(s): E78.5 - Hyperlipidemia , unspecified Is this a current diagnosis for this admission?: Yes Plan: Continue outpatient meds. (8) HTN (hypertension) Qualifiers: Hypertension type: essential hypertension Qualified Code(s): I10 - Essential (primary) hypertension Is this a current diagnosis for this admission?: Yes Plan: Continue to monitor. Adjust medications as needed. (9) PTSD (post-traumatic stress disorder) Is this a current diagnosis for this admission?: Yes Plan: Continue Prozac. (10) Peripheral neuropathy Is this a current diagnosis for this admission?: Yes Plan: Continue Gabapentin. (11) Dementia Qualifiers: Dementia type: unspecified type Is this a current diagnosis for this admission?: Yes Plan: On Namenda - Time Time Spent with patient: 35 or more minutes
[2018-02-09 16:47] VITALS: BP 143/59
[2018-02-09] MEDS ORDERED: METOPROLOL TARTRATE 50 MG TABLET PO SCH (18:00)
[2018-02-09] MEDS ORDERED: METOPROLOL TARTRATE 25 MG TABLET PO SCH (18:00)
[2018-02-09] MEDS ORDERED: CEFTAZIDIME PENTAHYDRATE 1 GM in DEXTROSE 5%-WATER 50 ML IV SCH (18:00)
== END 2018-02-09 19:55 | DRG 690 ==
LOC: ER 16:29 → EH 18:47 → 4N 20:03
PROVIDERS: ADMIT Internal Medicine; ATTEND Internal Medicine
PROC: 3E0F73Z Introduction of Anti-inflammatory into Respiratory Tract, Via Natural or Artificial Opening (ICD-10-PCS; principal; 2018-02-07)
DX: N39.0 Urinary tract infection, site not specified (principal); N17.9 Acute kidney failure, unspecified; G40.A09 Absence epileptic syndrome, not intractable, without status epilepticus; N40.0 Benign prostatic hyperplasia without lower urinary tract symptoms; S82.842D Displaced bimalleolar fracture of left lower leg, subsequent encounter for closed fracture with routine healing; Z66 Do not resuscitate; W18.30XA Fall on same level, unspecified, initial encounter; E78.00 Pure hypercholesterolemia, unspecified; F43.10 Post-traumatic stress disorder, unspecified; E11.42 Type 2 diabetes mellitus with diabetic polyneuropathy; F03.90 Unspecified dementia, unspecified severity, without behavioral disturbance, psychotic disturbance, mood disturbance, and anxiety; I25.10 Atherosclerotic heart disease of native coronary artery without angina pectoris; B96.5 Pseudomonas (aeruginosa) (mallei) (pseudomallei) as the cause of diseases classified elsewhere; E66.9 Obesity, unspecified; M19.90 Unspecified osteoarthritis, unspecified site; K21.9 Gastro-esophageal reflux disease without esophagitis; F32.9 Major depressive disorder, single episode, unspecified; I10 Essential (primary) hypertension; I25.2 Old myocardial infarction; Z68.31 Body mass index [BMI] 31.0-31.9, adult; Z79.899 Other long term (current) drug therapy; Z79.4 Long term (current) use of insulin; Z95.1 Presence of aortocoronary bypass graft; Z90.49 Acquired absence of other specified parts of digestive tract; Z88.8 Allergy status to other drugs, medicaments and biological substances; Z91.018 Allergy to other foods; Z79.82 Long term (current) use of aspirin; Z82.49 Family history of ischemic heart disease and other diseases of the circulatory system; Z83.3 Family history of diabetes mellitus; Z80.51 Family history of malignant neoplasm of kidney
CPT/HCPCS: 36415; 80048; 80053; 81001; 82803; 82962; 83605; 83735; 83880; 84100; 84443; 85025; 85610; 87040; 87086; 87088; 87186; 93005; 93010; 96365; 99285; J0696; J1650; J1815; J1956; J3490; J7030; J7120

== ENCOUNTER 2018-02-24 06:36 | Day surgery (SDC) | payer MEDICARE, OTHER ==
--- NOTE | 2018-02-17 10:23 | RADIOLOGY REPORT (SQ) ---
EXAM DESCRIPTION: CHEST PA/LATERAL COMPLETED DATE/TIME: 02/17/2018 10:11 am REASON FOR STUDY: PRE-OP COMPARISON: Chest films 02/05/2018, 01/06/2018 EXAM PARAMETERS: NUMBER OF VIEWS: two views TECHNIQUE: Digital Frontal and Lateral radiographic views of the chest acquired. RADIATION DOSE: NA LIMITATIONS: none FINDINGS: LUNGS AND PLEURA: No fluffy alveolar infiltrates worrisome for edema or pneumonia. Minima l bandlike atelectasis in the left mid and lower lungs. No pleural effusion. No pneumothorax. MEDIASTINUM AND HILAR STRUCTURES: No masses or contour abnormalities. HEART AND VASCULAR STRUCTURES: Heart normal size. Old sternotomy for CABG. BONES: Old right lateral 8th rib fracture HARDWARE: None in the chest. OTHER: No other significant finding. IMPRESSION: Left mid and lower lung bandlike atelectasis. No acute infiltrates. TECHNICAL DOCUMENTATION: JOB ID: [id number]- All Rights Reserved Reading location - IP/workstation name: [email or web address]
[2018-02-17 10:35] LABS: HEMATOCRIT 35.6 % (37.9-51.0); HEMOGLOBIN 12.4 g/dL (13.5-17.0); MEAN CORPUSCULAR HEMOGLOBIN 32.1 pg (27.0-33.4); MEAN CORPUSCULAR HGB CONC 34.7 g/dL (32.0-36.0); MEAN CORPUSCULAR VOLUME 93 fl (80-97); PLATELET COUNT 128 10^3/uL (150-450); RED BLOOD COUNT 3.84 10^6/uL (4.35-5.55); RED CELL DISTRIBUTION WIDTH 13.6 % (11.5-14.0); WHITE BLOOD COUNT 8.2 10^3/uL (4.0-10.5)
[2018-02-17 10:44] LABS: APPEARANCE,URINE CLEAR; BILIRUBIN,URINE NEGATIVE (NEGATIVE); COLOR,URINE YELLOW; GLUCOSE, URINE >=500 mg/dL (NEGATIVE); KETONES,URINE TRACE mg/dL (NEGATIVE); LEUKOCYTE ESTERASE,URINE NEGATIVE (NEGATIVE); NITRITE,URINE NEGATIVE (NEGATIVE); PROTEIN,URINE NEGATIVE (NEGATIVE); URINE SPECIFIC GRAVITY 1.018; UROBILINOGEN,URINE NEGATIVE mg/dL (<2.0)
[2018-02-17 11:26] LABS: ANION GAP 15 (5-19); BLOOD UREA NITROGEN 16 mg/dL (7-20); CALCIUM 8.4 mg/dL (8.4-10.2); CARBON DIOXIDE 24 mmol/L (22-30); CHLORIDE 102 mmol/L (98-107); GLUCOSE 324 mg/dL (75-110); SODIUM 141.3 mmol/L (137-145)
--- NOTE | 2018-02-17 21:47 | EKG REPORT ---
SEVERITY:- ABNORMAL ECG - SINUS RHYTHM LEFT BUNDLE BRANCH BLOCK : Confirmed by: Jasmina Montoya MD 17-Feb-2018 21:46:05
[~2018-02-24 06:36] MED LIST: CEFAZOLIN 2 GM/D5W RTU 2 GM/50 ML RTUPB IV PRN; LACTATED RINGERS 1000 ML IV PRN; LIDOCAINE 0.5% INJ-PF (5 MG/ML) 50 ML SDV SUBCUT PRN
[2018-02-24] MEDS ORDERED: BUPIVACAINE HCL 0.5%-EPI 1:200000 INJ/PF 30 ML VIAL ONE (07:15)
[2018-02-24] MEDS ORDERED: MIDAZOLAM 2 MG/2 ML INJ ONE (08:42)
[2018-02-24] MEDS ORDERED: FENTANYL CITRATE INJ/PF 100 MCG/2 ML AMPUL ONE (08:42)
[2018-02-24] MEDS ORDERED: KETAMINE HCL INJ 500 MG/10 ML VIAL ONE (08:42)
[2018-02-24] MEDS ORDERED: PROPOFOL INJ 200 MG/20 ML VIAL IV ONE (08:43)
[2018-02-24] MEDS ORDERED: MORPHINE SULFATE 10 MG/ML INJ IV PRN (09:15)
[2018-02-24] MEDS ORDERED: MEPERIDINE HCL/PF INJ 25 MG/1 ML DISP.SYRIN IV PRN (09:15)
[2018-02-24] MEDS ORDERED: FENTANYL CITRATE INJ/PF 100 MCG/2 ML AMPUL IV PRN ×3 (09:15)
[2018-02-24] MEDS ORDERED: PROMETHAZINE HCL INJ 25 MG/1 ML VIAL IV PRN (09:15)
[2018-02-24] MEDS ORDERED: DIPHENHYDRAMINE HCL 50 MG/ML VIAL IV PRN (09:15)
[2018-02-24] MEDS ORDERED: OXYCODONE HCL IR 5 MG TABLET PO PRN ×2 (09:16→09:40)
--- NOTE | 2018-02-24 09:16 | Operative Report ---
Operative Report DATE OF SURGERY: 02/24/18 PREOPERATIVE DIAGNOSIS: Left trimalleolar ankle fracture status post open application of an external fixator OPERATION: External fixator removal SURGEON: KUN OAKLEY ANESTHESIA: LMAC ESTIMATED BLOOD LOSS: Minimal PROCEDURE: With the patient supine on the operative table left lower extremities prepped in a sterile fashion. The external fixator was disassembled and the pins removed uneventfully. A posterior plaster splints applied. The patient's return to the PACU.
--- NOTE | 2018-02-24 09:21 | Discharge Summary ---
Discharge Summary (SDC) - Discharge Final Diagnosis: Left lower extremity bimalleolar fracture status post external fixator application Date of Surgery: 02/24/18 Condition: Good Treatment or Instructions: Nonweightbearing left lower extremity Referrals: KAYLA FIGUEROA MD [Primary Care Provider] - Discharge Diet: As Tolerated, Regular Respiratory Treatments at Home: Deep Breathing/Coughing Discharge Activity: Balance Activity w/Rest, No Driving, No tub bath Home Care Assistance: None Needed Report the Following to Your Physician Immediately: Shortness of Breath, Fever over 101 Degrees, Drainage-Foul Smelling
[2018-02-24] MEDS ORDERED: ONDANSETRON 4 MG TAB.RAPDIS SL PRN (09:41)
[2018-02-24 11:09] VITALS: BP 152/79
== END 2018-02-24 11:05 | disposition home or self-care (01) ==
LOC: OROUT 06:36
PROVIDERS: ATTEND Orthopaedic Surgery
DX: S82.852D Displaced trimalleolar fracture of left lower leg, subsequent encounter for closed fracture with routine healing (principal); X58.XXXD Exposure to other specified factors, subsequent encounter; I10 Essential (primary) hypertension; E11.40 Type 2 diabetes mellitus with diabetic neuropathy, unspecified; G30.9 Alzheimer's disease, unspecified; G89.29 Other chronic pain; M54.9 Dorsalgia, unspecified; M25.572 Pain in left ankle and joints of left foot; M06.9 Rheumatoid arthritis, unspecified; I25.2 Old myocardial infarction; Z79.4 Long term (current) use of insulin; Z88.0 Allergy status to penicillin; Z88.6 Allergy status to analgesic agent; Z79.82 Long term (current) use of aspirin; Z79.899 Other long term (current) drug therapy
CPT/HCPCS: 93005; 36415; 82962; 85027; 80048; 81001; 71046; 93010; 20694; J2250; J3010; J3490; J2704; J0690; 1480

== ENCOUNTER → 2018-05-19 | Outpatient (CLI) | payer MEDICARE ==
--- NOTE | 2018-05-19 16:26 | RADIOLOGY REPORT (SQ) ---
EXAM DESCRIPTION: FOOT LEFT COMPLETE COMPLETED DATE/TIME: 05/19/2018 4:08 pm REASON FOR STUDY: NON-PRS CHRONIC ULCER OTH PRT LEFT FOOT W FAT LAYER EXPOSED E11.621 TYPE 2 DIABET ES MELLITUS WITH FOOT ULCER L97.522 NON-PRS CHRONIC ULCER OTH PRT LEFT FOOT W FAT LAYER COMPARISON: 01/11/2018, 01/05/2018 NUMBER OF VIEWS: Three views. TECHNIQUE: AP, lateral and oblique radiographic images acquired of the left foot. LIMITATIONS: None. FINDINGS: A chronic nonunited fracture is present along the distal left tibia articular surface with dorsal dislocation of the talus at the tibiotalar joint. There is surrounding bulky callus. There are abnormal bony lucencies in the calcaneus and 1st metatarsal diaphysis with ill-defined area s of demineralization. These are likely areas of bone infection at sites of the external fixator luciano cement There is diffuse soft tissue swelling over the ankle and forefoot. IMPRESSION: Chronic nonunited fracture distal tibial metaphysis with dorsal dislocation of the talus with respect to the tibia. 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 TECHNICAL DOCUMENTATION: JOB ID: [id number] [employer]- All Rights Reserved Reading location - IP/workstation name: [email or web address]
[2018-05-19 16:38] LABS: ABSOLUTE EOSINOPHILS # (AUTO) 0.3 10^3/uL (0.0-0.6); ABSOLUTE LYMPHOCYTES (AUTO) 3.6 10^3/uL (0.5-4.7); ABSOLUTE MONOCYTES (AUTO) 1.3 10^3/uL (0.1-1.4); ABSOLUTE NEUT (AUTO) 5.4 10^3/uL (1.7-8.2); BASOPHILS % (AUTO) 0.3 % (0-2); EOSINOPHILS % (AUTO) 3.1 % (0-6); HEMATOCRIT 38.2 % (37.9-51.0); HEMOGLOBIN 13.3 g/dL (13.5-17.0); LYMPHOCYTES % (AUTO) 33.9 % (13-45); MEAN CORPUSCULAR HEMOGLOBIN 31.5 pg (27.0-33.4); MEAN CORPUSCULAR HGB CONC 34.9 g/dL (32.0-36.0); MEAN CORPUSCULAR VOLUME 90 fl (80-97); MONOCYTES % (AUTO) 12.3 % (3-13); PLATELET COUNT 174 10^3/uL (150-450); RED BLOOD COUNT 4.24 10^6/uL (4.35-5.55); RED CELL DISTRIBUTION WIDTH 14.3 % (11.5-14.0); SEGMENTED NEUTROPHILS % (AUTO) 50.4 % (42-78); TOTAL CELLS COUNTED % (AUTO) 100 %; WHITE BLOOD COUNT 10.7 10^3/uL (4.0-10.5)
[2018-05-19 17:03] LABS: ALANINE AMINOTRANSFERASE 17 U/L (21-72); ALBUMIN 3.8 g/dL (3.5-5.0); ALKALINE PHOSPHATASE 96 U/L (38-126); ANION GAP 10 (5-19); ASPARTATE AMINO TRANSFERASE 21 U/L (17-59); BILIRUBIN,DIRECT 0.2 mg/dL (0.0-0.4); BILIRUBIN,TOTAL 0.4 mg/dL (0.2-1.3); BLOOD UREA NITROGEN 16 mg/dL (7-20); C-REACTIVE PROTEIN 8.9 mg/L (<10.0); CALCIUM 8.6 mg/dL (8.4-10.2); CARBON DIOXIDE 27 mmol/L (22-30); CHLORIDE 100 mmol/L (98-107); GLUCOSE 247 mg/dL (75-110); POTASSIUM 4.8 mmol/L (3.6-5.0); SODIUM 136.9 mmol/L (137-145); TOTAL PROTEIN 7.2 g/dL (6.3-8.2)
[2018-05-19 17:27] LABS: ERYTHROCYTE SEDIMENTATION RATE 29 mm/hr (0-20)
== END ==
LOC: OD 15:37
PROVIDERS: ATTEND Nurse Practitioner
DX: E11.621 Type 2 diabetes mellitus with foot ulcer (principal); L97.522 Non-pressure chronic ulcer of other part of left foot with fat layer exposed; M84.462 Pathological fracture, left tibia
CPT/HCPCS: 36415; 80053; 83036; 85025; 85652; 86140

== ENCOUNTER → 2018-06-23 | Outpatient (CLI) | payer MEDICARE ==
--- NOTE | 2018-06-23 15:56 | RADIOLOGY REPORT (SQ) ---
EXAM DESCRIPTION: ARTERIAL LOWER EXTREM BILAT COMPLETED DATE/TIME: 06/23/2018 3:38 pm REASON FOR STUDY: ULCER L97.522 NON-PRS CHRONIC ULCER OTH PRT LEFT FOOT W FAT LAYER COMPARISON: None. TECHNIQUE: Dynamic and static patel scale and color images acquired of the lower extremity arteries. Additional selected spectral images recorded. LIMITATIONS: None. FINDINGS: RIGHT LEG: INFLOW ARTERIES: Normal, no obstruction evident. FEMORAL ARTERIES:Multiphasic waveforms. Normal, no velocity elevation to suggest focal stenosis. Norm al color Doppler evaluation. No aneurysm. POPLITEAL ARTERY:Multiphasic waveforms. Normal, no velocity elevation to suggest focal stenosis. Norm al color Doppler evaluation. No aneurysm. PATENT TIBIOPERONEAL TRUNK AND 3 VESSEL RUNOFF: Yes, normal vessels. OTHER: No other significant finding. LEFT LEG: INFLOW ARTERIES: Normal, no obstruction evident. FEMORAL ARTERIES:Multiphasic waveforms. Normal, no velocity elevation to suggest focal stenosis. Norm al color Doppler evaluation. No aneurysm. POPLITEAL ARTERY:Multiphasic waveforms. Normal, no velocity elevation to suggest focal stenosis. Norm al color Doppler evaluation. No aneurysm. PATENT TIBIOPERONEAL TRUNK AND 3 VESSEL RUNOFF: Yes, normal vessels. OTHER: No other significant finding. IMPRESSION: NORMAL BILATERAL LOWER EXTREMITY ARTERIAL DOPPLER. THE PATIENT REFUSED FARA EVALUATION. TECHNICAL DOCUMENTATION: JOB ID: [id number] [employer]- All Rights Reserved Reading location - IP/workstation name: [email or web address]
--- NOTE | 2018-06-23 16:51 | RADIOLOGY REPORT (SQ) ---
EXAM DESCRIPTION: VENOUS REFLUX COMPLETED DATE/TIME: 06/23/2018 3:38 pm REASON FOR STUDY: ULCER L97.522 NON-PRS CHRONIC ULCER OTH PRT LEFT FOOT W FAT LAYER COMPARISON: None. TECHNIQUE: Multiple real-time grayscale sonographic images were obtained for evaluation of the right and left lower extremity. Doppler and duplex evaluation of the venous structures was performed. LIMITATIONS: None. FINDINGS: The right and left common femoral, superficial femoral, popliteal and infrapopliteal veins are patent with normal response to compression and augmentation maneuvers. There is mild reflux in the right femoral vein. Right greater saphenous vein: Vessel diameter ranges between 4.3 and 5.5 mm. Reflux is greater than 2 seconds. Right small saphenous vein: Normal in caliber. No reflux. Left greater saphenous vein: Normal in caliber. No reflux. Left small saphenous vein: Normal in caliber. No reflux were OTHER: No solid or cystic masses or other abnormal findings. IMPRESSION: Reflux in the right greater saphenous vein slightly greater than 2 seconds. Vessel diam eter ranges from 4.3 to 5.5 mm. Mild reflux in the right femoral vein calculated at 331 milliseconds. No evidence of DVT or SVT. TECHNICAL DOCUMENTATION: JOB ID: [id number] [employer]- All Rights Reserved Reading location - IP/workstation name: [email or web address]
== END ==
LOC: SP 12:12
PROVIDERS: ATTEND Nurse Practitioner
DX: L97.522 Non-pressure chronic ulcer of other part of left foot with fat layer exposed (principal)
CPT/HCPCS: 93925; 93970

== ENCOUNTER 2019-03-02 11:34 | Emergency (ER) | payer MEDICARE ==
[2019-03-02] MEDS ORDERED: ACETAMINOPHEN 325 MG TABLET PO ONE (12:10)
[2019-03-02] MEDS ORDERED: CEFTRIAXONE 1 GM/D5W RTU 1 GM/50 ML RTUPB IV ONE ×2 (12:10→13:41)
[2019-03-02] MEDS ORDERED: NORMAL SALINE 1000 ML 1,000 ML IV ONE ×3 (12:10→14:39)
--- NOTE | 2019-03-02 12:10 | ER Document Report ---
ED Medical Screen (RME) - General Chief Complaint: Rash Stated Complaint: COUGH/RASH Time Seen by Provider: 03/02/19 12:04 Primary Care Provider: SILVIA CONRAD HEAD BELLHOP CAPTAIN [Primary Care Provider] - Follow up as needed Mode of Arrival: Wheelchair Information source: Relative Notes: 73-year-old male presented to ED for severe shortness of breath pulse ox 86 on 4 L. Patient is gasping for breath. He is pale face and oral mucosa. He does not have any history of COPD CHF or any respiratory problems. states he is in here today for petechial rash to his foot but that he started with his cough and shortness of breath last night and got progressively worse. He does have diminished lung sounds with rales and rhonchi's in the lung bases. I have greeted and performed a rapid initial assessment of this patient. A comprehensive ED assessment and evaluation of the patient, analysis of test results and completion of medical decision making process will be conducted by an additional ED providers. Dictation of this chart was performed using voice recognition software; therefore, there may be some unintended grammatical errors. TRAVEL OUTSIDE OF THE [place] 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 Denies: Hx Cerebrovascular Accident Endocrine Medical History: Reports: Hx Diabetes Mellitus Type 1, Hx Diabetes Mellitus Type 2 Renal/ Medical History: Denies: Hx Peritoneal Dialysis GI Medical History: Reports: Hx Gastroesophageal Reflux Disease, Hx Hiatal Hernia Musculoskeltal Medical History: Reports Hx Arthritis Psychiatric Medical History: Reports: Hx Depression, Hx Post Traumatic Stress Disorder Past Surgical History: Reports: Hx Cardiac Surgery - quadruple bypass, Hx Cholecystectomy, Hx Coronary Artery Bypass Graft - x 4, Hx Orthopedic Surgery - carpal tunnel, left ankle fracture, Hx Vascular Surgery, Other - Shrapnel removal from abdomen - Immunizations Hx Diphtheria, Pertussis, Tetanus Vaccination: Yes History of Influenza Vaccine for 05/2017 - 10/2017 Season: Yes Influenza Administration Date for 05/2017 - 10/2017 Season: 05/11/17 Physical Exam - Vital signs Vitals: Temp Pulse Resp BP Pulse Ox 98.2 F 81 28 H 151/86 H 86 L 03/02/19 11:49 03/02/19 11:49 03/02/19 11:49 03/02/19 11:49 03/02/19 11:49 Course - Vital Signs Vital signs: Temp Pulse Resp BP Pulse Ox 98.2 F 81 28 H 151/86 H 86 L 03/02/19 11:49 03/02/19 11:49 03/02/19 11:49 03/02/19 11:49 03/02/19 11:49 Doctor's Discharge - Discharge Referrals: SILVIA CONRAD, HEAD BELLHOP CAPTAIN [Primary Care Provider] - Follow up as needed
[2019-03-02 12:47] LABS: ABSOLUTE BASOPHILS # (AUTO) 0.1 10^3/uL (0.0-0.2); ABSOLUTE EOSINOPHILS # (AUTO) 0.1 10^3/uL (0.0-0.6); ABSOLUTE LYMPHOCYTES (AUTO) 2.8 10^3/uL (0.5-4.7); ABSOLUTE MONOCYTES (AUTO) 1.6 10^3/uL (0.1-1.4); ABSOLUTE NEUT (AUTO) 14.3 10^3/uL (1.7-8.2); BASOPHILS % (AUTO) 0.3 % (0-2); EOSINOPHILS % (AUTO) 0.7 % (0-6); HEMATOCRIT 37.7 % (37.9-51.0); HEMOGLOBIN 12.5 g/dL (13.5-17.0); MEAN CORPUSCULAR HEMOGLOBIN 31.5 pg (27.0-33.4); MEAN CORPUSCULAR VOLUME 95 fl (80-97); MONOCYTES % (AUTO) 8.4 % (3-13); PLATELET COUNT 270 10^3/uL (150-450); RED BLOOD COUNT 3.96 10^6/uL (4.35-5.55); RED CELL DISTRIBUTION WIDTH 13.6 % (11.5-14.0); SEGMENTED NEUTROPHILS % (AUTO) 75.6 % (42-78); TOTAL CELLS COUNTED % (AUTO) 100 %; WHITE BLOOD COUNT 18.8 10^3/uL (4.0-10.5)
[2019-03-02 12:52] LABS: VENOUS BLOOD BASE EXCESS -2.3 mmol/L; VENOUS BLOOD HCO3 26.2 mmol/L (20-32); VENOUS BLOOD PCO2 60.8 mmHg (35-63); VENOUS BLOOD PH 7.25 (7.30-7.42)
[2019-03-02 12:56] LABS: INTERNATIONAL RATION (INR) 1.18; PROTHROMBIN TIME 15.1 SEC (11.4-15.4)
--- NOTE | 2019-03-02 13:14 | RADIOLOGY REPORT (SQ) ---
EXAM DESCRIPTION: CHEST SINGLE VIEW COMPLETED DATE/TIME: 03/02/2019 1:04 pm REASON FOR STUDY: cough congestion possible sepsis o2 sat 86 COMPARISON: 11/11/2014 EXAM PARAMETERS: NUMBER OF VIEWS: One view. TECHNIQUE: Single frontal radiographic view of the chest acquired. RADIATION DOSE: NA LIMITATIONS: None. FINDINGS: LUNGS AND PLEURA: Fluffy perihilar and basilar predominant interstitial and patchy alveola r opacities. Small bilateral effusions. No pneumothorax. MEDIASTINUM AND HILAR STRUCTURES: No masses. Contour normal. HEART AND VASCULAR STRUCTURES: Enlarged cardiac silhouette. Aortic atherosclerosis. Evidence of leti or median sternotomy. BONES: Median sternotomy changes. Unchanged fracture of median sternotomy wires. HARDWARE: Median sternotomy hardware. OTHER: No other significant finding. IMPRESSION: Perihilar and basilar interstitial and alveolar opacities, likely edema although infecti on is not excluded. Small bilateral effusions. TECHNICAL DOCUMENTATION: JOB ID: [id number] [employer]- All Rights Reserved Reading location - IP/workstation name: [email or web address]
[2019-03-02] MEDS ORDERED: CALCIUM GLUCONATE 1000 MG/10 ML INJ IV ONE ×2 (13:38→14:43)
[2019-03-02] MEDS ORDERED: INSULIN REG, HUMAN 100 UNIT/ML 3 ML VIAL (PYX) IV ONE (13:39)
[2019-03-02] MEDS ORDERED: SODIUM BICARBONATE 8.4% INJ 50 MEQ/50 ML DISP.SYRIN IV ONE (13:40)
[2019-03-02] MEDS ORDERED: DEXTROSE 50%-WATER 25 GM/50 ML DISP.SYRIN IV ONE (13:40)
[2019-03-02] MEDS ORDERED: AZITHROMYCIN INJ 500 MG VIAL IV ONE (13:41)
[2019-03-02] MEDS: IPRATROPIUM/ALBUTEROL 0.5-2.5 MG/3 ML AMPUL NEB SCH (14:08)
[2019-03-02] MEDS ORDERED: SODIUM POLYSTYRENE SULFONATE 15 GM/60 ML PO ONE (14:08)
[2019-03-02 14:14] LABS: ALANINE AMINOTRANSFERASE 19 U/L (21-72); ALBUMIN 3.5 g/dL (3.5-5.0); ALKALINE PHOSPHATASE 83 U/L (38-126); ANION GAP 12 (5-19); ASPARTATE AMINO TRANSFERASE 40 U/L (17-59); BILIRUBIN,DIRECT 0.4 mg/dL (0.0-0.4); BILIRUBIN,TOTAL 0.6 mg/dL (0.2-1.3); BLOOD UREA NITROGEN 74 mg/dL (7-20); CARBON DIOXIDE 20 mmol/L (22-30); CHLORIDE 99 mmol/L (98-107); GLUCOSE 182 mg/dL (75-110); TOTAL PROTEIN 7.3 g/dL (6.3-8.2)
[2019-03-02 14:25] LABS: POTASSIUM 8.9 mmol/L (3.6-5.0)
[2019-03-02 14:26] LABS: CALCIUM 6.9 mg/dL (8.4-10.2)
--- NOTE | 2019-03-02 14:27 | ER Document Report ---
ED General - General Chief Complaint: Rash Stated Complaint: COUGH/RASH Time Seen by Provider: 03/02/19 12:04 Primary Care Provider: SILVIA CONRAD PACKAGING ENGINEER [ALLIED HEALTH PROFESSIONAL] - Follow up as needed Mode of Arrival: Wheelchair Information source: Patient, Relative Notes: HPI: 73-year-old male with past medical history as recorded including a fall in the left ankle fracture a few months ago. Patient has rehabilitation at his house. Patient and state that the patient has had some mild intermittent abdominal discomfort and shortness of breath for around 3 to 4 days. Supposedly the patient was febrile subjectively last night. Patient is not on oxygen at home. He does state a cough. He did vomit x6 times this morning. No blood or bile in the vomit. No diarrhea. No dysuria. Patient denies any and all chest pain. He denies runny nose, congestion, or cough. He denies a history of COPD or asthma. ROS: See HPI All other review of systems reviewed and otherwise negative Reviewed vital signs and nursing note as charted by RN. PHYSICAL EXAM: CONSTITUTIONAL: Alert and oriented and responds appropriately to questions. Mild tachypnea HEAD: Normocephalic; atraumatic EYES: Sclerae non-icteric ENT: Normal nose; no rhinorrhea; moist mucous membranes; pharynx without lesions noted NECK: Supple without meningismus; non-tender; no cervical lymphadenopathy, no masses CARD: Regular rate and rhythm; no murmurs; symmetric distal pulses RESP: Normal chest excursion without splinting or tachypnea; breath sounds clear and equal bilaterally; no wheezes, no rhonchi, no rales on initial auscultation ABD/GI: Normal bowel sounds; non-distended; soft, very mildly tender to the suprapubic region with no rebound or guarding present BACK: The back appears normal and is non-tender to palpation EXT: Normal ROM in all joints; patient has an irregular lateral aspect of the lateral malleolus with no obvious swelling, edema, or erythema. This is baseline after the fall according to the patient and the SKIN: Scattered petechial-like lesions to the lower extremities which the patient and state are chronic NEURO: CN 2-12 intact; 5/5 bilateral upper and lower extremity strength with sensation intact to light touch PSYCH: The patient's mood and manner are appropriate. Grooming and personal hygiene are appropriate. TRAVEL OUTSIDE OF THE [place] IN LAST 30 DAYS: No - Related Data Allergies/Adverse Reactions: paroxetine HCl [From Paxil] Allergy (Unknown, Verified 03/02/19 11:38) Hives lansoprazole Allergy (Verified 03/02/19 11:38) RASH mushroom Allergy (Verified 03/02/19 11:38) naproxen [From Naprosyn] Allergy (Verified 03/02/19 11:38) Hives cabbage Adverse Reaction (Mild, Verified 03/02/19 11:38) Past Medical History - General Information source: Relative - Social History Smoking Status: Unknown if Ever Smoked Chew tobacco use (# tins/day): No Family History: CAD, DM, Malignancy - Father-renal carcinoma, Other - HTN Patient has suicidal ideation: No Patient has homicidal ideation: No - Past Medical History Cardiac Medical History: Reports: Hx Congestive Heart Failure, Hx Coronary Artery Disease, 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 Denies: Hx Cerebrovascular Accident Endocrine Medical History: Reports: Hx Diabetes Mellitus Type 1, Hx Diabetes Mellitus Type 2 Renal/ Medical History: Denies: Hx Peritoneal Dialysis GI Medical History: Reports: Hx Gastroesophageal Reflux Disease, Hx Hiatal Hernia Musculoskeletal Medical History: Reports Hx Arthritis Psychiatric Medical History: Reports: Hx Depression, Hx Post Traumatic Stress Disorder Past Surgical History: Reports: Hx Cardiac Surgery - quadruple bypass, Hx Cholecystectomy, Hx Coronary Artery Bypass Graft - x 4, Hx Orthopedic Surgery - carpal tunnel, left ankle fracture, Hx Vascular Surgery, Other - Shrapnel removal from abdomen - Immunizations Hx Diphtheria, Pertussis, Tetanus Vaccination: Yes Hx Pneumococcal Vaccination: 08/10/07 Physical Exam - Vital signs Vitals: Resp Pulse Ox 30 H 99 03/02/19 11:35 03/02/19 11:35 Course - Re-evaluation Re-evalutation: Given the above history and physical examination, the patient was placed on BiPAP given the low oxygenation with a blood gas and basic labs ordered. Patient denies any and all chest pain. He has had some lower abdominal discomfort with vomiting. We will check the patient's electrolyte, cardiac panel, portable x-ray, ABG, and reassess. EKG shows a heart rate of 79, atrial fibrillation, left bundle branch block. No obvious peak T waves. Inverted T waves in leads I, aVL, V3 through V6. Old EKG from February 2018 shows a left bundle branch block without any obvious inverted T waves. No atrial fibrillation at that time. Initial electrolytes as recorded. Creatinine appears to be around 5 on the initial blood draw the very elevated potassium. EKG does not show any obvious peaked T waves. Patient again denies any and all chest pain. Concern about acute renal failure. They are doing a redraw given the acute change. In the meantime we will provide potassium lowering medications. We will also provide antibiotics given the x-ray report. Given the lower abdominal pain with acute r enal injury, I will order a CT scan of the abdomen and pelvis without contrast. I do believe pulmonary embolism without chest pain is unlikely. Given the possibility of a pneumonia we also ordered antibiotics and blood cultures. 03/02/19 14:25 Vital signs are stable. Labs as recorded. I did call and speak directly to her food service steward who states he does not have dialysis capability at this time. 03/02/19 14:32 Full set of electro lites as recorded. We have already given calcium. We will give another ampule given the low level. BNP as recorded. I am unsure whether this is related to heart failure given the lack of lower extremity edema, or secondary to the acute renal failure. 03/02/19 14:45 I called and spoke to the food service steward Dr. Centeno. He is asked that I also place a Dickson catheter in order 100 mg of Lasix. This has been ordered. They are attempting to connect me to the rinkman. 03/02/19 14:50 I did call and speak directly to the rinkman who states that he will accept the patient. 03/02/19 16:51 Dickson has only produced 250 cc of urine. - Vital Signs Vital signs: Temp Pulse Resp BP Pulse Ox 98.3 F 81 16 126/70 H 98 03/02/19 16:01 03/02/19 11:49 03/02/19 16:01 03/02/19 16:01 03/02/19 16:01 - Laboratory Result Diagrams: 03/02/19 12:25 07/24/19 13:30 Laboratory results interpreted by me: 03/02/19 03/02/19 03/02/19 12:25 12:25 12:25 WBC 18.8 H RBC 3.96 L Hgb 12.5 L Hct 37.7 L Absolute Neutrophils 14.3 H Absolute Monocytes 1.6 H VBG pH 7.25 L Sodium Potassium Carbon Dioxide BUN Creatinine Est GFR ( Amer) Est GFR (Non-Af Amer) Glucose Calcium ALT NT-Pro-B Natriuret Pep 78647 H Urine Protein Urine Ketones Urine Blood Ur Leukocyte Esterase Urine Ascorbic Acid 03/02/19 03/02/19 13:30 15:59 WBC RBC Hgb Hct Absolute Neutrophils Absolute Monocytes VBG pH Sodium 131.3 L Potassium 8.9 H* Carbon Dioxide 20 L BUN 74 H Creatinine 5.02 H Est GFR ( Amer) 14 L Est GFR (Non-Af Amer) 11 L Glucose 182 H Calcium 6.9 L* ALT 19 L NT-Pro-B Natriuret Pep Urine Protein >=500 H Urine Ketones TRACE H Urine Blood LARGE H Ur Leukocyte Esterase TRACE H Urine Ascorbic Acid 40 H Critical Care Note - Critical Care Note Total time excluding time spent on procedures (mins): 110 Discharge - Discharge Clinical Impression: Hyperkalemia, SOB (shortness of breath) Acute renal failure Qualifiers: Acute renal failure type: unspecified Qualified Code(s): N17.9 - Acute kidney failure, unspecified Vomiting Qualifiers: Vomiting type: unspecified Vomiting Intractability: non-intractable Nausea presence: with nausea Qualified Code(s): R11.2 - Nausea with vomiting, unspecified Abdominal pain Qualifiers: Abdominal location: unspecified location Qualified Code(s): R10.9 - Unspecified abdominal pain Condition: Critical Disposition: [facility] Admitted: ICU Referrals: SILVIA CONRAD NP [ALLIED HEALTH PROFESSIONAL] - Follow up as needed
[2019-03-02 14:28] LABS: TROPONIN I 0.078 ng/mL
[2019-03-02] MEDS ORDERED: ONDANSETRON HCL INJ/PF 4 MG/2 ML SDV IV ONE (14:34)
[2019-03-02] MEDS ORDERED: FUROSEMIDE INJ/PF 100 MG/10 ML SDV IV ONE (14:44)
--- NOTE | 2019-03-02 15:26 | RADIOLOGY REPORT (SQ) ---
EXAM DESCRIPTION: CT ABD/PELVIS NO ORAL OR IV COMPLETED DATE/TIME: 03/02/2019 3:06 pm REASON FOR STUDY: pain; vomiting; acute renal failure COMPARISON: 03/14/2014 TECHNIQUE: CT scan of the abdomen and pelvis performed without intravenous or oral contrast. Images reviewed with lung, soft tissue, and bone windows. Reconstructed coronal and sagittal MPR images revi ewed. All images stored on PACS. All CT scanners at this facility use dose modulation, iterative reconstruction, and/or weight based d osing when appropriate to reduce radiation dose to as low as reasonably achievable (ALARA). [facility]: Dose Right [facility]: CareDose [facility]: Dose Right [facility]: Teradose 4D [facility]: Smart [employer] RADIATION DOSE: CT Rad equipment meets quality standard of care and radiation dose reduction techniq ues were employed. CTDIvol: 18.5 mGy. DLP: 1138 mGy-cm.mGy. LIMITATIONS: Images degraded by motion artifact. . FINDINGS: LOWER CHEST: Patchy bilateral ground-glass opacities, interlobular septal thickening and s mall bilateral effusions. Coronary atherosclerosis. Enlarged heart. NON-CONTRASTED LIVER, SPLEEN, ADRENALS: Evaluation limited by lack of IV contrast. No identified sign ificant masses. PANCREAS: No masses. No peripancreatic inflammatory changes. GALLBLADDER: Not well visualized. RIGHT KIDNEY AND URETER: No suspicious masses. Assessment limited by lack of IV contrast. No signif icant calcifications. No hydronephrosis or hydroureter. LEFT KIDNEY AND URETER: No suspicious masses. Assessment limited by lack of IV contrast. Punctate n onobstructing left lower pole stone. No hydronephrosis or hydroureter. AORTA AND RETROPERITONEUM: No aneurysm. No retroperitoneal masses or adenopathy. BOWEL AND PERITONEAL CAVITY: Scattered colonic diverticula. No focal bowel wall thickening. No evid ence of intestinal obstruction. APPENDIX: Not well visualized. PELVIS, BLADDER, AND ABDOMINAL WALL:No abnormal masses. No free fluid. Bladder normal. BONES: No acute bony abnormality. No discrete lytic or blastic osseous lesions. Lower lumbar facet arthropathy. OTHER: No other significant finding. IMPRESSION: 1. Bibasilar patchy ground-glass opacities, likely edema with small bilateral effusions . 2. Nonobstructing punctate left lower pole stone. 3. No other evidence of acute intra-abdominal/pelvic process. COMMENT: Quality ID # [id number]: Final reports with documentation of one or more dose reduction techniques (e.g., Automated exposure control, adjustment of the mA and/or kV according to patient size, use of iterative reconstruction technique) TECHNICAL DOCUMENTATION: JOB ID: [id number] [employer]- All Rights Reserved Reading location - IP/workstation name: [email or web address]
[2019-03-02 16:23] VITALS: BP 126/70
[2019-03-02 16:34] LABS: APPEARANCE,URINE CLOUDY; BILIRUBIN,URINE NEGATIVE (NEGATIVE); GLUCOSE, URINE NEGATIVE (NEGATIVE); KETONES,URINE TRACE mg/dL (NEGATIVE); LEUKOCYTE ESTERASE,URINE TRACE (NEGATIVE); NITRITE,URINE NEGATIVE (NEGATIVE); PROTEIN,URINE >=500 mg/dL (NEGATIVE); URINE SPECIFIC GRAVITY 1.018; UROBILINOGEN,URINE NEGATIVE mg/dL (<2.0)
[2019-03-02 16:37] LABS: COLOR,URINE YELLOW
--- NOTE | 2019-03-02 23:50 | EKG REPORT ---
SEVERITY:- ABNORMAL ECG - ATRIAL FIBRILLATION LEFT BUNDLE BRANCH BLOCK : Confirmed by: Cassandra Glass 02-Mar-2019 23:48:55
== END 2019-03-02 16:52 | disposition short-term general hospital (02) ==
LOC: ER 11:34
DX: N17.9 Acute kidney failure, unspecified (principal); E87.5 Hyperkalemia; R06.02 Shortness of breath; R10.30 Lower abdominal pain, unspecified; R11.2 Nausea with vomiting, unspecified; R05 Cough; R21 Rash and other nonspecific skin eruption; I48.91 Unspecified atrial fibrillation; I44.7 Left bundle-branch block, unspecified; I25.10 Atherosclerotic heart disease of native coronary artery without angina pectoris; I10 Essential (primary) hypertension; E11.9 Type 2 diabetes mellitus without complications; Z88.8 Allergy status to other drugs, medicaments and biological substances; Z91.018 Allergy to other foods; Z95.1 Presence of aortocoronary bypass graft; Z90.49 Acquired absence of other specified parts of digestive tract; Z87.01 Personal history of pneumonia (recurrent)
CPT/HCPCS: 93005; 96376; 94640; 99291; 99292; 96361; 96374; 96375; 86900; 86901; 36415; 87040; 87086; 86870; 86850; 85025; 85610; 80053; 81001; 84484; 82803; 83605; 83880; 71045; 74176; 93010; 94660; A9270 ×3; J0610; J3490 ×2; J1940; J2405; J7030; J0456; J0696; J1815; J7620